=== PATIENT | male | born 1935 | race Caucasian/White ===

== ENCOUNTER 2019-05-15 07:26 | Emergency (ER) | payer MEDICARE, BC ==
[2019-05-15 08:33] LABS: CHLORIDE,CL 106 mmol/L (98-107); SODIUM,NA 142 mmol/L (136-145)
--- NOTE | 2019-05-15 09:03 | EDM.PDOC ---
ED HPI GENERAL MEDICAL PROBLEM - General Chief Complaint: Abdominal Pain Stated Complaint: abdominal pain Time Seen by Provider: 05/15/19 07:58 Source of Information: Reports: Patient, Other ([facility] staff) History Limitations: Reports: No Limitations - History of Present Illness INITIAL COMMENTS - FREE TEXT/NARRATIVE: Patient comes to ER with history of abdominal discomfort present for about two weeks. Rates it at a "5" at this time. Mostly LLQ. Worse after eating. Had emesis around time he tried to have breakfast this morning. No other nausea/ emesis reported. Had several stools yesterday but said they were not really loose in nature/no diarrhea. Patient reports feeling a bit constipated recently. No blood in stool. No fevers/chills. Has been eating and drinking well otherwise. Some discomfort down anterior left leg when he tries to lift left leg in air while laying down. No other new pain complaint. No history of similar pain in past per patient. Denies HEENT changes/URI complaints/headache No SOB/cough/respiratory changes. No chest pain/back pain/palpitations No numbness/tingling of limbs. No focal new weakness. Has cystostomy. No change in urine output. Abdominal Pain Score (Numeric/FACES): 5 - Related Data Allergies Allergy/AdvReac Type Severity Reaction Status Date / Time No Known Allergies Allergy Verified 05/15/19 07:27 Home Meds: Home Meds Albuterol [Ventolin HFA] 2 puff INH BID@0700,199905/15/19 [History] Albuterol [Ventolin HFA] 2 puff INH Q6HR PRN MDD Asthma 05/15/19 [History] Calcium Carbonate [Tums Extra Strength] 1 - 2 tab PO ASDIRECTED PRN MDD 10 tabs in 24 hours 05/15/19 [History] Carboxymethylcellulose Sodium [Artificial Tears] 2 drop EYEBOTH QID@07,12,16,05/15/19 [History] Cholecalciferol (Vitamin D3) [Vitamin D3] 25 mcg PO TID@07,16,20 05/15/19 [ History] Clotrimazole [Lotrimin AF 1% Crm] 1 applic TOP BID 05/15/19 [History] Furosemide [Lasix] 20 mg PO DAILY@0700 05/15/19 [History] Ketorolac Tromethamine 1 drop EYELF QID@07,12,16,20 05/15/19 [History] Lidocaine 2% [Xylocaine 2% Jelly] 1 ml TOP ASDIRECTED PRN 05/15/19 [History] Methyl Salicylate/Menthol [Thera-Gesic Analgesic] 1 applic TOP TID PRN 05/15/19 [History] Metoprolol Tartrate [Lopressor] 50 mg PO BID@0700,199905/15/19 [History] Mometasone Furoate [Asmanex] 1 puff INH BEDTIME 05/15/19 [History] Moxifloxacin HCl [Moxifloxacin] 1 drop EYELF QID@07,12,16,20 05/15/19 [History] Potassium Chloride [Klor-Con M20] 20 meq PO DAILY@0700 05/15/19 [History] Prednisolone Acetate/Pf [Prednisolone Acet 1% Eye Drop] 1 drop EYELF QID@07,12, 16,20 05/15/19 [History] Sulfamethoxazole/Trimethoprim [Bactrim Ds Tablet] 1 each PO Q12H #14 tablet [Rx] Tiotropium [Spiriva Handihaler] 18 mcg INH BEDTIME 05/15/19 [History] atorvaSTATin [Lipitor] 40 mg PO BEDTIME 05/15/19 [History] Past Medical History HEENT History: Reports: Cataract, Glaucoma, Hard of Hearing Cardiovascular History: Reports: Afib, Bypass, CAD, Cardiomyopathy, Heart Failure, High Cholesterol, Hypertension, PVD, Other (See Below) (Aortic insufficiency, mitral insufficiency) Respiratory History: Reports: Asthma, Sleep Apnea Gastrointestinal History: Reports: Other (See Below) (dysphagia) Genitourinary History: Reports: Urinary Incontinence (incontinent of stool), Other (See Below) (cystostomy) Neurological History: Reports: Other (See Below) (Subarachnoid bleed/LOC) Psychiatric History: Reports: Anxiety Social & Family History - Family History Family Medical History: Noncontributory - Living Situation & Occupation Living situation: Reports: Extended Care Facility ED ROS GENERAL - Review of Systems Review Of Systems: ROS reveals no pertinent complaints other than HPI. ED EXAM, GENERAL - Physical Exam Exam: See Below Exam Limited By: No Limitations General Appearance: Alert, WD/WN, No Apparent Distress Eye Exam: Bilateral Eye: EOMI, PERRL Ears: Normal External Exam Nose: No: Nasal Deformity, Nasal Swelling, Nasal Drainage Throat/Mouth: Normal Lips, Normal Voice, No Airway Compromise Head: Atraumatic, Normocephalic Neck: Supple, Full Range of Motion Respiratory/Chest: No Respiratory Distress, No Accessory Muscle Use, Chest Non- Tender, Other (faint crackles at bases) Cardiovascular: No Murmur, Irregularly Irregular (history of chronic afib) GI/Abdominal: Soft, No Distention, No Abnormal Bruit, Tender (tender LLQ/ periumbilically). No: Guarding, Rigid, Rebound (Male) Exam: Deferred Rectal (Males) Exam: Deferred Back Exam: No: CVA Tenderness (L), CVA Tenderness (R), Muscle Spasm, Paraspinal Tenderness, Vertebral Tenderness Extremities: Non-Tender, Normal Capillary Refill Neurological: Alert, No Motor/Sensory Deficits Psychiatric: Normal Affect, Normal Mood Skin Exam: Warm, Dry, Intact, Normal Color Course - Vital Signs Last Recorded V/S: Last Vital Signs Temp 35.9 C 05/15/19 08:00 Pulse 67 05/15/19 08:00 Resp 20 05/15/19 08:00 BP 138/100 H 05/15/19 08:00 Pulse Ox 98 05/15/19 08:00 - Orders/Labs/Meds Orders: Active Orders 24 hr Category Date Time Status Peripheral IV Care [RC] . DIRECTED Care 05/15/19 07:39 Active Abdomen 2V AP Flat Upright [CR] Stat Exams 05/15/19 08:06 Taken CULTURE URINE [RM] Routine Lab 05/15/19 08:53 Ordered Peripheral IV Insertion Adult [OM.PC] Routine Oth 05/15/19 07:39 Ordered Labs: Laboratory Tests 05/15/19 05/15/19 05/15/19 Range/Units 07:55 07:55 07:55 WBC 6.6 (4.0-10.2) K/uL RBC 4.12 L (4.33-5.41) M/uL Hgb 12.0 L (13.1-16.8) g/dL Hct 38.0 L (39.0-49.0) % MCV 92.2 (84.0-98.0) fL MCH 29.1 (28.2-33.3) pg MCHC 31.6 L (31.7-36.0) g/dL RDW 15.4 H (11.2-14.1) % Plt Count 153 (150-350) K/uL Neut % (Auto) 76.9 (45.0-80.0) % Lymph % (Auto) 12.4 (10.0-50.0) % [place] % (Auto) 7.0 (2.0-14.0) % Eos % (Auto) 3.2 (0.0-5.0) % Baso % (Auto) 0.5 (0.0-2.0) % Neut # (Auto) 5.09 (1.40-7.00) K/uL Lymph # (Auto) 0.82 (0.50-3.50) K/uL [place] # (Auto) 0.46 (0.00-1.00) K/uL Eos # (Auto) 0.21 (0.00-0.50) K/uL Baso # (Auto) 0.03 (0.00-0.20) K/uL Sodium 142 (136-145) mmol/L Potassium 4.3 (3.5-5.1) mmol/L Chloride 106 (98-107) mmol/L Carbon Dioxide 25.6 (21.0-32.0) mmol/L BUN 21 H (7-18) mg/dL Creatinine 0.63 (0.51-1.17) mg/dL Est Cr Clr Drug Dosing TNP Estimated GFR (MDRD) > 60 mL/min Glucose 151 H (74-106) mg/dL Lactic Acid 2.9 H (0.4-2.0) mmol/L Calcium 8.5 (8.5-10.1) mg/dL Magnesium 1.8 (1.8-2.4) mg/dL Total Bilirubin 0.6 (0.2-1.0) mg/dL AST 19 (15-37) U/L ALT 19 (12-78) U/L Alkaline Phosphatase 121 H (46-116) IU/L Total Protein 7.1 (6.4-8.2) g/dL Albumin 3.0 L (3.4-5.0) g/dL Specimen Type Urine Color Urine Appearance Urine pH (5.0-9.0) Ur Specific Or[place] (1.005-1.030) Urine Protein (NEGATIVE) mg/dL Urine Glucose (UA) (NEGATIVE) mg/dL Urine Ketones (NEGATIVE) mg/dL Urine Occult Blood (NEGATIVE) Urine Nitrite (NEGATIVE) Urine Bilirubin (NEGATIVE) Urine Urobilinogen (0.2-1.0) E.U./dL Ur Leukocyte Esterase (NEGATIVE) Urine RBC /HPF Urine WBC /HPF Ur Epithelial Cells /LPF Urine Bacteria (NONE TO FEW) /HPF 05/15/19 Range/Units 08:02 WBC (4.0-10.2) K/uL RBC (4.33-5.41) M/uL Hgb (13.1-16.8) g/dL Hct (39.0-49.0) % MCV (84.0-98.0) fL MCH (28.2-33.3) pg MCHC (31.7-36.0) g/dL RDW (11.2-14.1) % Plt Count (150-350) K/uL Neut % (Auto) (45.0-80.0) % Lymph % (Auto) (10.0-50.0) % [place] % (Auto) (2.0-14.0) % Eos % (Auto) (0.0-5.0) % Baso % (Auto) (0.0-2.0) % Neut # (Auto) (1.40-7.00) K/uL Lymph # (Auto) (0.50-3.50) K/uL [place] # (Auto) (0.00-1.00) K/uL Eos # (Auto) (0.00-0.50) K/uL Baso # (Auto) (0.00-0.20) K/uL Sodium (136-145) mmol/L Potassium (3.5-5.1) mmol/L Chloride (98-107) mmol/L Carbon Dioxide (21.0-32.0) mmol/L BUN (7-18) mg/dL Creatinine (0.51-1.17) mg/dL Est Cr Clr Drug Dosing Estimated GFR (MDRD) mL/min Glucose (74-106) mg/dL Lactic Acid (0.4-2.0) mmol/L Calcium (8.5-10.1) mg/dL Magnesium (1.8-2.4) mg/dL Total Bilirubin (0.2-1.0) mg/dL AST (15-37) U/L ALT (12-78) U/L Alkaline Phosphatase (46-116) IU/L Total Protein (6.4-8.2) g/dL Albumin (3.4-5.0) g/dL Specimen Type Urincath Urine Color Yellow Urine Appearance Cloudy Urine pH 6.0 (5.0-9.0) Ur Specific [place] 1.020 (1.005-1.030) Urine Protein Negative (NEGATIVE) mg/dL Urine Glucose (UA) Negative (NEGATIVE) mg/dL Urine Ketones Negative (NEGATIVE) mg/dL Urine Occult Blood Moderate H (NEGATIVE) Urine Nitrite Positive H (NEGATIVE) Urine Bilirubin Negative (NEGATIVE) Urine Urobilinogen 0.2 (0.2-1.0) E.U./dL Ur Leukocyte Esterase Small H (NEGATIVE) Urine RBC 5-10 H /HPF Urine WBC 30-40 H /HPF Ur Epithelial Cells Rare /LPF Urine Bacteria Many H (NONE TO FEW) /HPF Meds: Medications Discontinued Medications Generic Name Dose Route Start Last Admin Trade Name Freq PRN Reason Stop Dose Admin Ceftriaxone Sodium 1 gm/ 100 mls @ 200 mls/hr 05/15/19 08:54 05/15/19 09:09 Sodium Chloride IV 05/15/19 09:23 200 mls/hr ONETIME ONE Administration Lactulose 20 gm 05/15/19 09:01 05/15/19 09:09 Cephulac PO 05/15/19 09:02 20 gm ONETIME ONE Administration Magnesium Citrate 592 ml 05/15/19 08:59 05/15/19 09:09 Citrate Of Magnesia PO 05/15/19 09:00 592 ml ONETIME ONE Administration Ondansetron HCl 4 mg 05/15/19 09:36 05/15/19 09:49 Zofran IVPUSH 05/15/19 09:37 4 mg ONETIME ONE Administration Polyethylene Glycol 17 gm 05/15/19 09:00 05/15/19 09:09 Miralax PO 05/15/19 09:01 17 gm ONETIME ONE Administration Sodium Chloride 10 ml 05/15/19 07:39 05/15/19 09:50 Saline Flush FLUSH 10 ml ASDIRECTED PRN Administration Keep Vein Open - Re-Assessments/Exams Free Text/Narrative Re-Assessment/Exam: Patient afebrile. Normal WBC. Mild elevation of lactic acid. Large amount of stool noted on abdominal film. UA + for elevated WBCs UTI identified. Culture requested. Discussed obtaining CT of abdomen to make more certain that patient does not have any other obvious pathology such as diverticulitis. Patient refused CT at this time and prefers to try to treat for constipation. Will also be started on antibiotics for UTI. If pain persists despite the above interventions, patient will need to be re- evaluated. Single dose Rocephin given in ER. Patient in agreement with plan. Repeat UA/Lactic Acid/Potassium requested in 4 days. Departure - Departure Time of Disposition: 10:15 Disposition: DC/Tfer to [facility] 03 Condition: Good Clinical Impression: Constipation Qualifiers: Constipation type: unspecified constipation type Qualified Code(s): K59.00 - Constipation, unspecified UTI (urinary tract infection) Qualifiers: Urinary tract infection type: site unspecified Hematuria presence: without hematuria Qualified Code(s): N39.0 - Urinary tract infection, site not specified - Discharge Information *PRESCRIPTION DRUG MONITORING PROGRAM REVIEWED*: Not Applicable *COPY OF PRESCRIPTION DRUG MONITORING REPORT IN PATIENT JOE: Not Applicable Prescriptions: Sulfamethoxazole/Trimethoprim [Bactrim Ds Tablet] 1 each PO Q12H #14 tablet Instructions: Ondansetron injection, Ceftriaxone injection, Constipation, Adult , Urinary Tract Infection, Adult Referrals: Yash-Carol Story MD [Primary Care Provider] - Forms: ED Department Discharge Additional Instructions: Give bottle of Mag Citrate mixed with Miralax this morning to promote a bowel movement. Start patient on Bactrim DS twice daily for 7 day course. Give single bottle Mag Citrate tomorrow morning. Observe for results/changes. If pain continues despite the above interventions, CT of abdomen should be performed. If any fevers/sudden worsening is noted, CT should be performed/patient reassessed. If pain resolves, patient needs to have new UA performed in 4 days to make certain that infection is clearing. Recheck potassium level at same time as Bactrim can increase potassium levels in patients on potassium supplements. Also recheck Lactic Acid to see if it has returned to normal level. - My Orders Last 24 Hours: My Active Orders 05/15/19 07:39 Peripheral IV Care [RC] . DIRECTED Peripheral IV Insertion Adult [OM.PC] Routine 05/15/19 08:06 Abdomen 2V AP Flat Upright [CR] Stat 05/15/19 08:53 CULTURE URINE [RM] Routine - Assessment/Plan Last 24 Hours: My Active Orders 05/15/19 07:39 Peripheral IV Care [RC] . DIRECTED Peripheral IV Insertion Adult [OM.PC] Routine 05/15/19 08:06 Abdomen 2V AP Flat Upright [CR] Stat 05/15/19 08:53 CULTURE URINE [RM] Routine
[2019-05-15] MEDS: Polyethylene Glycol 3350 Powder 17 GM Packet PO ONE (09:09)
[2019-05-15] MEDS: Lactulose Soln 10 GM/15 ML 30 ML UD Cup PO ONE (09:09)
[2019-05-15] MEDS: Magnesium Citrate Solution 296 ML Bottle PO ONE (09:09)
[2019-05-15] MEDS: cefTRIAXone 1 GM in Sodium Chloride 0.9% 100 ML IV ONE (09:09)
[2019-05-15] MEDS: Ondansetron 4 MG/2 ML SDV IVPUSH ONE (09:49)
[2019-05-15] MEDS: Sodium Chloride 0.9% 10 ML Syringe FLUSH PRN (09:50)
== END 2019-05-15 10:25 ==
LOC: LL.ED 07:26
DX: N39.0 Urinary tract infection, site not specified (principal); K59.00 Constipation, unspecified; I25.10 Atherosclerotic heart disease of native coronary artery without angina pectoris; E78.00 Pure hypercholesterolemia, unspecified; I10 Essential (primary) hypertension; J45.909 Unspecified asthma, uncomplicated; H26.9 Unspecified cataract; H40.9 Unspecified glaucoma; Z79.52 Long term (current) use of systemic steroids; Z79.899 Other long term (current) drug therapy; Z79.51 Long term (current) use of inhaled steroids; Z95.1 Presence of aortocoronary bypass graft
CPT/HCPCS: 36415; 74019; 80053; 81001; 83605; 83735; 85025; 87086; 87088; 87186; 96365; 96374; 99283; 99284-25; A9270-GY; J0696; J2405; J7050

== ENCOUNTER 2019-07-10 09:13 | Emergency (ER) | payer MEDICARE, BC ==
--- NOTE | 2019-07-10 10:00 | EDM.PDOC ---
ED HPI GENERAL MEDICAL PROBLEM - General Chief Complaint: Abdominal Pain Stated Complaint: abdominal pain Time Seen by Provider: 07/10/19 09:50 Source of Information: Reports: Patient, [facility] Records, Old Records ([facility] chart/EMR) History Limitations: Reports: Altered Mental Status - History of Present Illness INITIAL COMMENTS - FREE TEXT/NARRATIVE: The patient was brought to this facility via transport vehicle from [facility] in [place] for evaluation of nonspecific diffuse 4/10 abdominal pain and bloating with moderate distention and loose bowel movements associated with some nausea and possible emesis since earlier this morning by patient history, although not reported from the nurses to this facility earlier this morning prior to patient's transfer. The patient normally has problems with constipation with no medications taken to this point. He denies any gross hematuria or UTI symptoms with current suprapubic catheter and clear urine by nurse's history this morning. The patient denies any chest pain/pressure, heart flutter, dizziness, orthostasis, orthopnea, diaphoresis, paresthesias, recent decreased exercise tolerance, or any other anginal-type symptoms. The patient also denies any recent fever, cough, wheezing, dyspnea, etc.. He did not take his morning medications. Onset: Gradual, Unknown/Unsure Duration: Constant, Getting Worse Location: Reports: Abdomen. Denies: Head, Face, Neck, Chest, Back, Upper Extremity, Left, Upper Extremity, Right, Radiates to Quality: Reports: Same as Previous Episode, Sharp Severity: Moderate Improves with: Reports: None Worsens with: Reports: None Context: Reports: Other (As above). Denies: Sick Contact, Trauma Associated Symptoms: Reports: Nausea/Vomiting. Denies: Chest Pain, Cough, Diaphoresis, Fever/Chills, Loss of Appetite, Malaise, Shortness of Breath, Syncope, Weakness Treatments FIREMAN: Reports: Other (see below) (None) Abdomen Pain Score (Numeric/FACES): 4 - Related Data Allergies Allergy/AdvReac Type Severity Reaction Status Date / Time No Known Allergies Allergy Verified 05/15/19 07:27 Home Meds: Home Meds Albuterol [Ventolin HFA] 2 puff INH BID@0700,2000 05/15/19 [History] Albuterol [Ventolin HFA] 2 puff INH Q6HR PRN MDD Asthma 05/15/19 [History] Calcium Carbonate [Tums Extra Strength] 1 - 2 tab PO ASDIRECTED PRN MDD 10 tabs in 24 hours 05/15/19 [History] Carboxymethylcellulose Sodium [Artificial Tears] 2 drop EYEBOTH QID@07,12,,05/15/19 [History] Cholecalciferol (Vitamin D3) [Vitamin D3] 25 mcg PO TID@,,05/15/19 [ History] Clotrimazole [Lotrimin AF 1% Crm] 1 applic TOP BID 05/15/19 [History] Furosemide [Lasix] 20 mg PO DAILY@0700 05/15/19 [History] Ketorolac Tromethamine 1 drop EYELF QID@07,,,05/15/19 [History] Lidocaine 2% [Xylocaine 2% Jelly] 1 ml TOP ASDIRECTED PRN 05/15/19 [History] Methyl Salicylate/Menthol [Thera-Gesic Analgesic] 1 applic TOP TID PRN 05/15/19 [History] Metoprolol Tartrate [Lopressor] 50 mg PO BID@0700,199905/15/19 [History] Mometasone Furoate [Asmanex] 1 puff INH BEDTIME 05/15/19 [History] Moxifloxacin HCl [Moxifloxacin] 1 drop EYELF QID@07,12,,20 05/15/19 [History] Potassium Chloride [Klor-Con M20] 20 meq PO DAILY@0700 05/15/19 [History] Prednisolone Acetate/Pf [Prednisolone Acet 1% Eye Drop] 1 drop EYELF QID@07,12, ,05/15/19 [History] Sulfamethoxazole/Trimethoprim [Bactrim Ds Tablet] 1 each PO Q12H #14 tablet [Rx] Tiotropium [Spiriva Handihaler] 18 mcg INH BEDTIME 05/15/19 [History] atorvaSTATin [Lipitor] 40 mg PO BEDTIME 05/15/19 [History] Past Medical History HEENT History: Reports: Cataract, Glaucoma, Hard of Hearing, Impaired Vision Other HEENT History: The patient wears glasses with an occluded right limb secondary to diplopia. Dry eye syndrome. 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 Chronic tinnitus. History of epistaxis with cauterization. Cardiovascular History: Reports: Afib, Bypass, CAD, Cardiomyopathy, Heart Failure, Heart Murmur, High Cholesterol, Hypertension, PVD, Syncope, Other (See Below) Other Cardiovascular History: Aortic valve and mitral valve insufficiency. 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 Varicose veins. Respiratory History: Reports: Asthma, Bronchitis, Recurrent, COPD, Intubation, Previous, Sleep Apnea. Denies: Intubation, Difficult Gastrointestinal History: Reports: Bowel Obstruction, Chronic Constipation, Chronic Diarrhea, Fecal Incontinence, Other (See Below) Other Gastrointestinal History: Dysphagia. Genitourinary History: Reports: BPH, Retention, Urinary, Urinary Incontinence, UTI, Recurrent Other Genitourinary History: Neurogenic bladder with chronic suprapubic catheter therapy. Musculoskeletal History: Reports: Arthritis, Fracture, Osteoarthritis Other Musculoskeletal History: Left shoulder fracture. Bilateral foot pain. Neurological History: Reports: CVA, Other (See Below) Other Neuro History: subarachnoid hemorrhage with LOC Psychiatric History: Reports: Anxiety, Depression Endocrine/Metabolic History: Reports: Diabetes, Type II, Vitamin D Deficiency Other Endocrine/Metabolic History: Prediabetes. Hypokalemia. Hematologic History: Reports: Anemia Dermatologic History: Reports: Other (See Below) Other Dermatologic History: Seborrheic keratosis. Xerosis cutis. Venous stasis dermatitis. Dry skin. - Past Surgical History HEENT Surgical History: Reports: Cataract Surgery, Oral Surgery, Other (See Below) Other HEENT Surgeries/Procedures: Right-sided cataract surgery. Multiple teeth extractions. Cardiovascular Surgical History: Reports: Coronary Artery Bypass GI Surgical History: Reports: Appendectomy, Cholecystectomy, Other (See Below) Other GI Surgeries/Procedures: Appendectomy at age 6. Cholecystectomy in about 2017. Male Surgical History: Reports: Suprapubic Catheter Placement Musculoskeletal Surgical History: Reports: Shoulder Surgery, Other (See Below) Other Musculoskeletal Surgeries/Procedures:: Unknown type of left shoulder surgeryunsuccessful. Social & Family History - Family History Family Medical History: Noncontributory - Living Situation & Occupation Living situation: Reports: Extended Care Facility ED ROS GENERAL - Review of Systems Review Of Systems: Comprehensive ROS is negative, except as noted in HPI. ED EXAM, GI/ABD - Physical Exam Exam: See Below Exam Limited By: No Limitations General Appearance: Alert, WD/WN, No Apparent Distress Eyes: Right: Abnormal EOM, Bilateral: Normal Appearance (stable baseline by history with anisocoria with left-sided severe myosis and right-sided enlarged pupil at 6 mm and likely status post cataract extraction. Patient wearing glasses with right-sided occluded lens), EOMI (PERRLA) Ears: Normal External Exam, Normal Canal, Normal TMs, Hearing Loss (mild to moderate bilateral presbycusis with the patient not having hearing aids today) Nose: Normal Inspection, Normal Mucosa, No Blood Throat/Mouth: Normal Inspection, Normal Lips, Normal Teeth (multiple missing teeth), Normal Gums, Normal Oropharynx, Normal Voice, No Airway Compromise. No : Dysphagia, Perioral Cyanosis Head: Atraumatic, Normocephalic. No: Facial Swelling, Facial Tenderness, Sinus Tenderness Neck: Supple, Non-Tender, Full Range of Motion, Carotid Bruit (mild bilateral carotid bruits). No: Lymphadenopathy (L), Lymphadenopathy (R), Thyromegaly Respiratory/Chest: No Respiratory Distress, Lungs Clear, Normal Breath Sounds, No Accessory Muscle Use, Chest Non-Tender. No: Pleural Rub, Retractions Cardiovascular: Normal Peripheral Pulses, No Edema, No Gallop, No JVD, No Murmur , No Rub, Irregularly Irregular. No: Diastolic Murmur (insufficiency murmurs not appreciated), Systolic Murmur GI/Abdominal Exam: No Abnormal Bruit, No Mass, Pelvis Stable, Distended ( moderate), Tender (mild diffuse biphasic P waves), Abnormal Bowel Sounds ( moderate diffuse bowel sounds high-pitched in nature). No: Guarding, Rigid, Rebound (Male) Exam: Deferred, Other (suprapubic catheter noted) Rectal (Males) Exam: Normal Rectal Tone, BPH (moderate), Heme - Stool, Hemorrhoids. No: Bloody Stool, Fecal Impaction, Mass, Prostate Nodule, Tenderness (no Daniel space tenderness) Extremities: Normal Inspection, Non-Tender, No Pedal Edema, Normal Capillary Refill, Limited Range of Motion (chronic and shoulders bilaterally). No: Adelia' s Sign Neurological: Alert, Oriented, CN II-XII Intact, Normal Cognition, Normal Reflexes (negative Babinski's), No Motor/Sensory Deficits Psychiatric: Normal Affect, Normal Mood. No: Anxious, Depressed Mood Skin Exam: Warm, Dry, Intact, Normal Color, Other (severely dry skin. Moderate venous stasis dermatitis of the lower extremities. 1 cm benign cyst in the mid forehead region.). No: Diaphoretic, Wound/Incision Lymphatic: No Adenopathy Course - Vital Signs Last Recorded V/S: Last Vital Signs Temp 36.0 C 07/10/19 09:14 Pulse 129 H 07/10/19 11:04 Resp 20 07/10/19 09:59 BP 115/56 L 07/10/19 11:04 Pulse Ox 97 07/10/19 09:59 Vital Signs - 24 hr 07/10/19 07/10/19 07/10/19 09:14 09:59 11:04 Temperature [ 36.0 C Temporal] Pulse, 129 H Peripheral Pulse, 107 H Peripheral [ Left Pulse Oximetry] Respiratory 20 20 Rate Blood Pressure 115/56 L Blood Pressure 108/85 [Left Upper Arm ] O2 Sat by Pulse 97 Oximetry - Orders/Labs/Meds Orders: Active Orders 24 hr Category Date Time Status Cardiac Monitoring [RC] . DIRECTED Care 07/10/19 10:09 Active Peripheral IV Care [RC] . DIRECTED Care 07/10/19 10:00 Active Nothing Per Oral Diet [DIET] Diet 07/10/19 Breakfast Active Abdomen 1V Flat [CR] Stat Exams 07/10/19 11:04 Taken Abdomen Series w Chest 1V [CR] Stat Exams 07/10/19 10:00 Taken H PYLORI STOOL ANTIGEN [MREF] Urgent Lab 07/10/19 10:00 Ordered INR,PT,PROTHROMBIN TIME [COAG] Stat Lab 07/10/19 10:00 Ordered PTT,PARTIAL THROMBOPLSTIN TIME [COAG] Stat Lab 07/10/19 10:00 Ordered Sodium Chloride 0.9% [Saline Flush] Med 07/10/19 10:00 Active 10 ml FLUSH ASDIRECTED PRN metroNIDAZOLE/Normal Saline [Flagyl 500 MG in NS 100 ML Med 07/10/19 11:03 Active ] 500 mg Premix Bag 1 bag IV ONETIME NG [Nasogastric Orogastric Tube Insertion] [OM.PC] Oth 07/10/19 11:01 Ordered Routine Obtain Past Medical Record [OM.PC] Urgent Oth 07/10/19 10:00 Active Peripheral IV Insertion Adult [OM.PC] Stat Oth 07/10/19 10:00 Ordered Resuscitation Status Stat Resus Stat 07/10/19 10:00 Ordered Medication Orders Metronidazole 500 mg/ Premix 100 mls @ 100 mls/hr IV ONETIME ONE Stop: 07/10/19 12:02 Last Admin: 07/10/19 11:48 Dose: 100 mls/hr Sodium Chloride (Saline Flush) 10 ml FLUSH ASDIRECTED PRN PRN Reason: Keep Vein Open Last Admin: 07/10/19 10:21 Dose: 10 ml Labs: Laboratory Tests 07/10/19 07/10/19 07/10/19 Range/Units 10:30 11:10 11:10 WBC 7.6 (4.0-10.2) K/uL RBC 4.65 (4.33-5.41) M/uL Hgb 13.5 D (13.1-16.8) g/dL Hct 42.1 (39.0-49.0) % MCV 90.5 (84.0-98.0) fL MCH 29.0 (28.2-33.3) pg MCHC 32.1 (31.7-36.0) g/dL RDW 15.4 H (11.2-14.1) % Plt Count 60 L D (150-350) K/uL Neut % (Auto) 76.8 (45.0-80.0) % Lymph % (Auto) 10.1 (10.0-50.0) % [place] % (Auto) 12.3 (2.0-14.0) % Eos % (Auto) 0.5 (0.0-5.0) % Baso % (Auto) 0.3 (0.0-2.0) % Neut # (Auto) 5.83 (1.40-7.00) K/uL Lymph # (Auto) 0.77 (0.50-3.50) K/uL [place] # (Auto) 0.93 (0.00-1.00) K/uL Eos # (Auto) 0.04 (0.00-0.50) K/uL Baso # (Auto) 0.02 (0.00-0.20) K/uL Sodium 144 (136-145) mmol/L Potassium 3.4 L (3.5-5.1) mmol/L Chloride 107 (98-107) mmol/L Carbon Dioxide 20.5 L (21.0-32.0) mmol/L BUN 33 H (7-18) mg/dL Creatinine 0.85 (0.51-1.17) mg/dL Est Cr Clr Drug Dosing 60.48 mL/min Estimated GFR (MDRD) > 60 mL/min Glucose 156 H (74-106) mg/dL Lactic Acid (0.4-2.0) mmol/L Uric Acid 5.7 (2.6-7.2) mg/dL Calcium 9.0 (8.5-10.1) mg/dL Magnesium 1.8 (1.8-2.4) mg/dL Total Bilirubin 1.1 H (0.2-1.0) mg/dL AST 18 (15-37) U/L ALT 13 (12-78) U/L Alkaline Phosphatase 126 H (46-116) IU/L Total Protein 7.3 (6.4-8.2) g/dL Albumin 3.4 (3.4-5.0) g/dL Amylase 33 (25-115) U/L Lipase 53 L (73-393) U/L // Range/Units 11:10 WBC (4.0-10.2) K/uL RBC (4.33-5.41) M/uL Hgb (13.1-16.8) g/dL Hct (39.0-49.0) % MCV (84.0-98.0) fL MCH (28.2-33.3) pg MCHC (31.7-36.0) g/dL RDW (11.2-14.1) % Plt Count (150-350) K/uL Neut % (Auto) (45.0-80.0) % Lymph % (Auto) (10.0-50.0) % [place] % (Auto) (2.0-14.0) % Eos % (Auto) (0.0-5.0) % Baso % (Auto) (0.0-2.0) % Neut # (Auto) (1.40-7.00) K/uL Lymph # (Auto) (0.50-3.50) K/uL [place] # (Auto) (0.00-1.00) K/uL Eos # (Auto) (0.00-0.50) K/uL Baso # (Auto) (0.00-0.20) K/uL Sodium (136-145) mmol/L Potassium (3.5-5.1) mmol/L Chloride (98-107) mmol/L Carbon Dioxide (21.0-32.0) mmol/L BUN (7-18) mg/dL Creatinine (0.51-1.17) mg/dL Est Cr Clr Drug Dosing mL/min Estimated GFR (MDRD) mL/min Glucose (74-106) mg/dL Lactic Acid 2.3 H (0.4-2.0) mmol/L Uric Acid (2.6-7.2) mg/dL Calcium (8.5-10.1) mg/dL Magnesium (1.8-2.4) mg/dL Total Bilirubin (0.2-1.0) mg/dL AST (15-37) U/L ALT (12-78) U/L Alkaline Phosphatase (46-116) IU/L Total Protein (6.4-8.2) g/dL Albumin (3.4-5.0) g/dL Amylase (25-115) U/L Lipase (73-393) U/L Meds: Medications Generic Name Dose Route Start Last Admin Trade Name Freq PRN Reason Stop Dose Admin Metronidazole 500 mg/ Premix 100 mls @ 100 mls/hr 07/10/19 11:03 07/10/19 11: 48 IV 07/10/19 12:02 100 mls/hr ONETIME ONE Administration Sodium Chloride 10 ml 07/10/19 10:00 07/10/19 10:21 Saline Flush FLUSH 10 ml ASDIRECTED PRN Administration Keep Vein Open Discontinued Medications Generic Name Dose Route Start Last Admin Trade Name Freq PRN Reason Stop Dose Admin Famotidine 40 mg 07/10/19 10:00 07/10/19 10:20 Pepcid IVPUSH 07/10/19 10:01 40 mg ONETIME ONE Administration Ceftriaxone Sodium 1 gm/ 100 mls @ 200 mls/hr 07/10/19 10:53 07/10/19 11:04 Sodium Chloride IV 07/10/19 11:22 200 mls/hr ONETIME ONE Administration Metoprolol Tartrate 2.5 mg 07/10/19 10:56 07/10/19 11:04 Lopressor IVPUSH 07/10/19 10:57 2.5 mg ONETIME ONE Administration Pantoprazole Sodium 40 mg 07/10/19 10:00 07/10/19 10:21 Protonix Iv IVPUSH 07/10/19 10:01 40 mg ONETIME ONE Administration - Radiology Interpretation Free Text/Narrative:: quality assurance monitor body shows atrial fibrillation with heart rate in the 100s to 140s with frequent PVCs and occasional couplets and triplets. Note significant improvement with low-dose IV Lopressor therapy with atrial fibrillation occasional PVCs and heart rate in the 100s to 110s prior to transfer Acute abdominal x-rays shows evidence of severe diffuse bowel gaseous pattern and fluid levels indicating probable ileus and obstruction. No free air. Moderate COPD with moderate right perihilar and right middle lobe pulmonary infiltrates and atelectasis. Possible mild centralized CHF with mild bilateral pleural effusions. No pneumothorax. Abdominal x-ray, one view, shows adequate NG tube placement with obstructive findings as above. Departure - Departure Time of Disposition: 12:00 Disposition: DC/Tfer to Acute Hospital 02 Condition: Fair Clinical Impression: PVCs (premature ventricular contractions), Elevated lactic acid level, Hypokalemia Bowel obstruction Qualifiers: Intestinal obstruction type: unspecified ileus Qualified Code(s): K56.7 - Ileus , unspecified Atrial fibrillation Qualifiers: Atrial fibrillation type: longstanding persistent Qualified Code(s): I48.11 - Longstanding persistent atrial fibrillation Coronary artery disease Qualifiers: Coronary Disease-Associated Artery/Lesion type: bypass graft [place] vs. transplanted heart: [place] heart Associated angina: without angina Qualified Code(s): I25.810 - Atherosclerosis of coronary artery bypass graft(s) without angina pectoris Hypertension Qualifiers: Hypertension type: essential hypertension Qualified Code(s): I10 - Essential ( primary) hypertension Hyperlipidemia Qualifiers: Hyperlipidemia type: unspecified Qualified Code(s): E78.5 - Hyperlipidemia, unspecified COPD (chronic obstructive pulmonary disease) Qualifiers: COPD type: COPD with acute lower respiratory infection Qualified Code(s): J44.0 - Chronic obstructive pulmonary disease with (acute) lower respiratory infection Osteoarthritis Qualifiers: Osteoarthritis location: multiple joints Osteoarthritis type: primary Qualified Code(s): M15.0 - Primary generalized (osteo)arthritis - Discharge Information *PRESCRIPTION DRUG MONITORING PROGRAM REVIEWED*: Not Applicable *COPY OF PRESCRIPTION DRUG MONITORING REPORT IN PATIENT JOE: Not Applicable Forms: ED Department Discharge, Interfacility Transfer EMTALA Additional Instructions: Ambulance transfer with bunch maker accompaniment Sepsis Event Note - Evaluation Sepsis Screening Result: No Definite Risk - Focused Exam Vital Signs: Vital Signs Temp Pulse Pulse Resp BP BP Pulse Ox 07/10/19 11:04 129 H 115/56 L 07/10/19 09:59 107 H 20 108/85 97 07/10/19 09:14 36.0 C 20 Date Exam was Performed: 07/10/19 Time Exam was Performed: 11:53 - Problem List & Annotations (1) Bowel obstruction SNOMED Code(s): 30650020 Code(s): K56.609 - UNSP INTESTNL OBST, UNSP TO PARTIAL VERSUS COMPLETE OBST Status: Acute Priority: High Onset Date: 07/10/19 Annotation/ Comment:: Severe bowel obstruction by today's x-rays. Note that secondary to equipment problems chemistry panels could not be conducted in a timely manner with results received immediately prior to patient's transfer. Therefore CT scan of the abdomen and pelvis was not conducted prior to patient's transfer. High-dose IV Pepcid and IV Protonix were given upon patient's arrival to the emergency room. IV Rocephin was completed prior to transfer with IV Flagyl therapy initiated shortly prior to arrival with continuation of this therapy in route. NG tube therapy was placed with adequate placement by follow-up x-rays. Telephone consultation at 10:[address] Lozano, hospitalist at the [facility], who does accept the patient for direct admission, with no further treatment recommendations given. I did leave a telephone message with the patient's POA, Chinedu Galeano, telephone #[phone], informing him of patient transfer. Qualifiers: Intestinal obstruction type: unspecified ileus Qualified Code(s): K56.7 - Ileus, unspecified (2) Elevated lactic acid level SNOMED Code(s): 1292673 Code(s): R79.89 - OTHER SPECIFIED ABNORMAL FINDINGS OF BLOOD CHEMISTRY Status: Acute Priority: High Onset Date: 07/10/19 Annotation/Comment:: Recommend repeat lactic acid level at time of arrival with the patient to the [facility]. Initiate sepsis protocol depending on these results and clinical course. Note no fever or leukocytosis in the emergency room. (3) Atrial fibrillation SNOMED Code(s): 46208695 Code(s): I48.91 - UNSPECIFIED ATRIAL FIBRILLATION Status: Acute Priority : High Annotation/Comment:: Note that the patient did not receive his medications this morning. Overall improvement with low-dose IV Lopressor therapy in the emergency room as above. He is not currently on Coumadin or other anticoagulation likely secondary to his previous subarachnoid hemorrhage. Continue to observe closely by accepting providers. Qualifiers: Atrial fibrillation type: longstanding persistent Qualified Code(s): I48.11 - Longstanding persistent atrial fibrillation (4) COPD (chronic obstructive pulmonary disease) SNOMED Code(s): 72181201 Code(s): J44.9 - CHRONIC OBSTRUCTIVE PULMONARY DISEASE, UNSPECIFIED Status : Acute Annotation/Comment:: Stable by history although evidence of right middle lobe and right perihilar pneumonia. Patient is afebrile with no leukocytosis. He is an extremely difficult blood draw with blood cultures not able to be obtained. IV Rocephin initiated in the emergency room as above. Qualifiers: COPD type: COPD with acute lower respiratory infection Qualified Code(s): J44.0 - Chronic obstructive pulmonary disease with (acute) lower respiratory infection (5) Coronary artery disease SNOMED Code(s): 91393276 Code(s): I25.10 - ATHSCL HEART DISEASE OF [place] CORONARY ARTERY W/O ANG PCTRS Status: Chronic Priority: Medium Annotation/Comment:: No Chest pain or anginal type symptoms. Qualifiers: Coronary Disease-Associated Artery/Lesion type: bypass graft [place] vs. transplanted heart: [place] heart Associated angina: without angina Qualified Code(s): I25.810 - Atherosclerosis of coronary artery bypass graft(s) without angina pectoris (6) Hyperlipidemia SNOMED Code(s): 79341239 Code(s): E78.5 - HYPERLIPIDEMIA, UNSPECIFIED Status: Chronic Priority: Medium Annotation/Comment:: Continue current medical therapy. Qualifiers: Hyperlipidemia type: unspecified Qualified Code(s): E78.5 - Hyperlipidemia , unspecified (7) Hypertension SNOMED Code(s): 59372641 Code(s): I10 - ESSENTIAL (PRIMARY) HYPERTENSION Status: Chronic Priority : Medium Annotation/Comment:: Blood Pressures under good control in the emergency room despite tachycardia. Qualifiers: Hypertension type: essential hypertension Qualified Code(s): I10 - Essential (primary) hypertension (8) Hypokalemia SNOMED Code(s): 71909143 Code(s): E87.6 - HYPOKALEMIA Status: Acute Priority: Medium Onset Date : 07/10/19 Annotation/Comment:: The paramedics will initiate lactated Ringer' s IV fluids, if IV Flagyl is completed prior to arrival to the [facility] in [place]. Otherwise IV potassium supplementation is recommended secondary to current NG tube therapy. (9) Osteoarthritis SNOMED Code(s): 331907697 Code(s): M19.90 - UNSPECIFIED OSTEOARTHRITIS, UNSPECIFIED SITE Status: Chronic Priority: Medium Annotation/Comment:: Stable by history Qualifiers: Osteoarthritis location: multiple joints Osteoarthritis type: primary Qualified Code(s): M15.0 - Primary generalized (osteo)arthritis (10) PVCs (premature ventricular contractions) SNOMED Code(s): 54480632 Code(s): I49.3 - VENTRICULAR PREMATURE DEPOLARIZATION Status: Acute Priority: High Onset Date: 07/10/19 Annotation/Comment:: Newly diagnosed with occasional couplets and triplets. Nonsymptomatic. Observe for now. - Problem List Review Problem List Initiated/Reviewed/Updated: Yes - My Orders Last 24 Hours: My Active Orders 07/10/19 10:00 Peripheral IV Care [RC] . DIRECTED Abdomen Series w Chest 1V [CR] Stat H PYLORI STOOL ANTIGEN [MREF] Urgent INR,PT,PROTHROMBIN TIME [COAG] Stat PTT,PARTIAL THROMBOPLSTIN TIME [COAG] Stat Sodium Chloride 0.9% [Saline Flush] 10 ml FLUSH ASDIRECTED PRN Obtain Past Medical Record [OM.PC] Urgent Peripheral IV Insertion Adult [OM.PC] Stat Resuscitation Status Stat 07/10/19 10:09 Cardiac Monitoring [RC] . DIRECTED 07/10/19 11:01 NG [Nasogastric Orogastric Tube Insertion] [OM.PC] Routine 07/10/19 11:03 metroNIDAZOLE/Normal Saline [Flagyl 500 MG in NS 100 ML] 500 mg Premix Bag 1 bag IV ONETIME 07/10/19 11:04 Abdomen 1V Flat [CR] Stat 07/10/19 Breakfast Nothing Per Oral Diet [DIET] - Assessment/Plan Last 24 Hours: My Active Orders 07/10/19 10:00 Peripheral IV Care [RC] . DIRECTED Abdomen Series w Chest 1V [CR] Stat H PYLORI STOOL ANTIGEN [MREF] Urgent INR,PT,PROTHROMBIN TIME [COAG] Stat PTT,PARTIAL THROMBOPLSTIN TIME [COAG] Stat Sodium Chloride 0.9% [Saline Flush] 10 ml FLUSH ASDIRECTED PRN Obtain Past Medical Record [OM.PC] Urgent Peripheral IV Insertion Adult [OM.PC] Stat Resuscitation Status Stat 07/10/19 10:09 Cardiac Monitoring [RC] . DIRECTED 07/10/19 11:01 NG [Nasogastric Orogastric Tube Insertion] [OM.PC] Routine 07/10/19 11:03 metroNIDAZOLE/Normal Saline [Flagyl 500 MG in NS 100 ML] 500 mg Premix Bag 1 bag IV ONETIME 07/10/19 11:04 Abdomen 1V Flat [CR] Stat 07/10/19 Breakfast Nothing Per Oral Diet [DIET] Assessment:: As above. Plan: As above. Extensive precautions were given to the patient, who is in agreement with the treatment plan. Ambulance transfer with bunch maker accompaniment.
[2019-07-10] MEDS: Famotidine 20 MG/2 ML SDV IVPUSH ONE (10:20)
[2019-07-10] MEDS: Sodium Chloride 0.9% 10 ML Syringe FLUSH PRN (10:21)
[2019-07-10] MEDS: Pantoprazole 40 MG Vial IVPUSH ONE (10:21)
[2019-07-10] MEDS: Metoprolol Tartrate 5 MG/5 ML SDV IVPUSH ONE (11:04)
[2019-07-10] MEDS: cefTRIAXone 1 GM in Sodium Chloride 0.9% 100 ML IV ONE (11:04)
[2019-07-10 11:37] LABS: CHLORIDE,CL 107 mmol/L (98-107); SODIUM,NA 144 mmol/L (136-145)
[2019-07-10] MEDS: metroNIDAZOLE/Normal Saline 500 MG in Premix Bag 1 BAG IV ONE (11:48)
== END 2019-07-10 12:01 ==
LOC: LL.ED 09:13
DX: K56.7 Ileus, unspecified (principal); E87.6 Hypokalemia; I49.3 Ventricular premature depolarization; I48.11 Longstanding persistent atrial fibrillation; I25.810 Atherosclerosis of coronary artery bypass graft(s) without angina pectoris; E78.5 Hyperlipidemia, unspecified; J44.0 Chronic obstructive pulmonary disease with (acute) lower respiratory infection; M15.0 Primary generalized (osteo)arthritis; I11.0 Hypertensive heart disease with heart failure; I50.40 Unspecified combined systolic (congestive) and diastolic (congestive) heart failure; R79.89 Other specified abnormal findings of blood chemistry; E11.36 Type 2 diabetes mellitus with diabetic cataract; H26.9 Unspecified cataract; H91.93 Unspecified hearing loss, bilateral; Z79.01 Long term (current) use of anticoagulants; Z95.1 Presence of aortocoronary bypass graft; Z86.73 Personal history of transient ischemic attack (TIA), and cerebral infarction without residual deficits; Z90.49 Acquired absence of other specified parts of digestive tract; Z90.89 Acquired absence of other organs; Z79.899 Other long term (current) drug therapy; Z79.51 Long term (current) use of inhaled steroids
CPT/HCPCS: 36415; 43752; 74018; 74022; 80053; 82150; 82272; 83605; 83690; 83735; 84550; 85025; 96365; 96375; 99284; 99285; C9113; J0696; J3490; J7050

== ENCOUNTER 2019-07-19 12:52 | Emergency (ER) | payer OTHER, MEDICARE ==
[2019-07-19] MEDS ORDERED: Lactated Ringers 1,000 ML IV ONE (13:08)
--- NOTE | 2019-07-19 13:08 | EDM.PDOC ---
ED HPI GENERAL MEDICAL PROBLEM - General Chief Complaint: Abdominal Pain Stated Complaint: loose stools Time Seen by Provider: 07/19/19 13:00 Source of Information: Reports: Patient, Longterm Records, Old Records ([facility] chart/EMR.) History Limitations: Reports: No Limitations - History of Present Illness INITIAL COMMENTS - FREE TEXT/NARRATIVE: The patient was brought to the emergency room via transport vehicle from [facility] for evaluation of progressive watery diarrhea associated with one large episode of projectile vomiting 1-2 days ago and progressive anorexia. The patient has had at least 4 watery bowel movements with stool incontinence since this morning, although he denies any significant abdominal pain or nausea at this time. He was evaluated by me in this emergency room on 07/10/2019 for severe ileus/obstruction with subsequent transfer and hospitalization at the from 07/10 through . The above symptoms have been progressing since 07/15 with no known exposure to infection, food poisoning, etc. etc. No recent history of melena, gross hematochezia, or any food intolerance, including fatty foods, etc.. He has been n.p.o. since about 7 AM this morning. The patient denies any chest pain/pressure, heart flutter, dizziness, orthostasis, orthopnea, diaphoresis, paresthesias, recent decreased exercise tolerance, or any other anginal-type symptoms. The patient also denies any recent fever, cough, wheezing, dyspnea, etc.. The patient denies any significant pain other than and chronic left shoulder pain. Onset: Gradual Onset Date: 07/15/19 Duration: Getting Worse Location: Reports: Other (As above) Quality: Reports: Same as Previous Episode Severity: Moderate Improves with: Reports: None Worsens with: Reports: None Context: Reports: Other (As above). Denies: Sick Contact, Trauma Associated Symptoms: Reports: Loss of Appetite, Nausea/Vomiting. Denies: Confusion, Chest Pain, Cough, Diaphoresis, Fever/Chills, Headaches, Malaise, Shortness of Breath, Syncope, Weakness Treatments TREE FELLER: Reports: Other (see below) (None) - Related Data Allergies Allergy/AdvReac Type Severity Reaction Status Date / Time No Known Allergies Allergy Verified 07/19/19 14:55 Home Meds: Home Meds Albuterol [Ventolin HFA] 2 puff INH BID@0700,199905/15/19 [History] Albuterol [Ventolin HFA] 2 puff INH Q6HR PRN MDD Asthma 05/15/19 [History] Calcium Carbonate [Tums Extra Strength] 1 - 2 tab PO ASDIRECTED PRN MDD 10 tabs in 24 hours 05/15/19 [History] Carboxymethylcellulose Sodium [Artificial Tears] 2 drop EYEBOTH QID@,12,,05/15/19 [History] Cholecalciferol (Vitamin D3) [Vitamin D3] 25 mcg PO TID@,,05/15/19 [ History] Furosemide [Lasix] 20 mg PO DAILY@0700 05/15/19 [History] Lidocaine 2% [Xylocaine 2% Jelly] 1 ml TOP ASDIRECTED PRN 05/15/19 [History] Methyl Salicylate/Menthol [Thera-Gesic Analgesic] 1 applic TOP TID PRN 05/15/19 [History] Metoprolol Tartrate [Lopressor] 50 mg PO BID@0700,199905/15/19 [History] Mometasone Furoate [Asmanex] 1 puff INH BEDTIME 05/15/19 [History] Potassium Chloride [Klor-Con M20] 20 meq PO DAILY@0700 05/15/19 [History] Tiotropium [Spiriva Handihaler] 18 mcg INH BEDTIME 05/15/19 [History] atorvaSTATin [Lipitor] 40 mg PO BEDTIME 05/15/19 [History] Past Medical History HEENT History: Reports: Cataract, Glaucoma, Hard of Hearing, Impaired Vision, Other (See Below) Other HEENT History: The patient wears glasses with an occluded right glasses lens secondary to diplopia with known anisocoria. Dry eye syndrome. 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 Chronic tinnitus. History of epistaxis with cauterization. Cardiovascular History: Reports: Afib, Arrhythmia, Bypass, CAD, Cardiomyopathy, Heart Failure, Heart Murmur, High Cholesterol, Hypertension, PVD, Syncope, Other (See Below). Denies: PTCA, Stents Other Cardiovascular History: Aortic valve and mitral valve insufficiency. 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 Varicose veins. PVCs Respiratory History: Reports: Asthma, Bronchitis, Recurrent, COPD, Intubation, Previous, Sleep Apnea. Denies: Intubation, Difficult Gastrointestinal History: Reports: Bowel Obstruction, Chronic Constipation, Chronic Diarrhea, Fecal Incontinence, Hemorrhoids, Other (See Below) Other Gastrointestinal History: Dysphagia. Left inguinal hernia. Recurrent previous ileus and bowel obstruction last on 07/10/2019. Genitourinary History: Reports: BPH, Retention, Urinary, Urinary Incontinence, UTI, Recurrent Other Genitourinary History: Neurogenic bladder with chronic suprapubic catheter therapy. Musculoskeletal History: Reports: Arthritis, Fracture, Osteoarthritis Other Musculoskeletal History: Left shoulder fracture. Bilateral foot pain. Neurological History: Reports: CVA, Other (See Below) Other Neuro History: Subarachnoid hemorrhage with LOC and requires a cane for walking. Psychiatric History: Reports: Anxiety, Depression Endocrine/Metabolic History: Reports: Diabetes, Type II, Vitamin D Deficiency Other Endocrine/Metabolic History: Prediabetes. Hypokalemia. Hematologic History: Reports: Anemia Dermatologic History: Reports: Other (See Below) Other Dermatologic History: Seborrheic keratosis. Xerosis cutis. Venous stasis dermatitis. Dry skin. - Past Surgical History HEENT Surgical History: Reports: Cataract Surgery, Oral Surgery, Other (See Below) Other HEENT Surgeries/Procedures: Right-sided cataract surgery. Multiple teeth extractions. Cardiovascular Surgical History: Reports: Coronary Artery Bypass GI Surgical History: Reports: Appendectomy, Cholecystectomy, Other (See Below) Other GI Surgeries/Procedures: Appendectomy at age 6. Cholecystectomy in about 2017. Male Surgical History: Reports: Suprapubic Catheter Placement Musculoskeletal Surgical History: Reports: Shoulder Surgery, Other (See Below) Other Musculoskeletal Surgeries/Procedures:: Unknown type of left shoulder surgeryunsuccessful. - Past Imaging History Past Imaging History: Reports: CAT Scan (CT of the abdomen and pelvis with IV contrast on 07/10/[address] [facility] Swallow Study (07/12/[address] [facility].) Social & Family History - Family History Family Medical History: Noncontributory - Living Situation & Occupation Living situation: Reports: Extended Care Facility ([facility] in [facility]) ED ROS GENERAL - Review of Systems Review Of Systems: Comprehensive ROS is negative, except as noted in HPI. ED EXAM, GI/ABD - Physical Exam Exam: See Below Exam Limited By: No Limitations General Appearance: Alert, WD/WN, No Apparent Distress Eyes: Bilateral: EOMI (Note previously known anisocoria with right pupil at about 6 mm in diameter and left pupil 3 mm in diameter with occluded right glasses lens secondary to previously known diplopia.) Ears: Normal External Exam, Normal Canal, Other (Mild bilateral presbycusis with patient not having his hearing aids today.) Nose: Normal Mucosa, No Blood, Clear Rhinorrhea Throat/Mouth: Normal Inspection, Normal Lips, Normal Teeth (Multiple missing teeth), Normal Gums, Normal Oropharynx, Normal Voice, No Airway Compromise, Dysphagia (Note dysphagia by history and recent swallow study as above.). No: Perioral Cyanosis Head: Atraumatic, Normocephalic. No: Facial Swelling, Facial Tenderness, Sinus Tenderness Neck: Supple, Non-Tender, Full Range of Motion, Carotid Bruit (Mild bilateral). No: Lymphadenopathy (L), Lymphadenopathy (R), Thyromegaly Respiratory/Chest: No Respiratory Distress, No Accessory Muscle Use, Crackles, Rales (Bilateral basilar with moderate diffuse bowel sounds in this area). No: Pleural Rub, Retractions Cardiovascular: Normal Peripheral Pulses, Tachycardia (Occasional), Irregularly Irregular. No: No Edema (Mild dependent edema as below), Gallop/S3, Gallop/S4, Friction Rub GI/Abdominal Exam: Non-Tender, No Abnormal Bruit, No Mass, Pelvis Stable, Distended (Severe), Abnormal Bowel Sounds (Significant diffuse elevated bowel sounds high-pitched in nature), Hernia (Left inguinal indirectmoderate). No: Guarding, Rigid, Rebound, Tender, Mass (Male) Exam: Deferred, Hernia (Moderate left inguinal hernia), Other ( Suprapubic catheter. Moderate phimosis.). No: Normal Prostate (As below), Circumcised (Noncircumcised), Inguinal Lymphadenopathy, Scrotum Tenderness (L), Scrotum Tenderness (R), Suprapubic Fullness, Testicular Mass, Testicular Tenderness (L), Testicular Tenderness (R), Urethral Discharge Rectal (Males) Exam: Heme - Stool, Hemorrhoids (Grade 23 internal/external hemorrhoids), Other (Thin brown liquid stool). No: Prostate Normal (Moderate to severe prostate enlargement ), Black Stool, Bloody Stool, Fecal Impaction, Prostate Nodule, Tenderness (No ductal space tenderness) Back Exam: Normal Inspection, Full Range of Motion. No: CVA Tenderness (L), CVA Tenderness (R), Muscle Spasm Extremities: Normal Capillary Refill, Pedal Edema (Trace bilateral pedal/ pretibial edema), Arm Pain (As above), Limited Range of Motion (As below), Other (Crease range of motion of the left shoulderchronic. Moderate to severe varicose veins in the left adductor region.). No: Normal Range of Motion, Non- Tender (Chronic left shoulder pain with range of motion with no history of recent injury), Joint Swelling, Adelia's Sign Neurological: Alert, Oriented, CN II-XII Intact, Normal Cognition, Normal Gait, Normal Reflexes (Negative Babinski's), No Motor/Sensory Deficits Psychiatric: Normal Affect, Normal Mood Skin Exam: No Rash, Ecchymosis (Bilateral ecchymosis in the dorsal surfaces of the hands and arms really secondary to previous blood draws and IV placements). No: Diaphoretic, Increased Warmth, Lymphangitis, Wound/Incision Lymphatic: No Adenopathy Course - Vital Signs Last Recorded V/S: Last Vital Signs Temp 36.3 C 07/19/19 12:57 Pulse 92 07/19/19 15:55 Resp 21 H 07/19/19 15:35 BP 99/45 L 07/19/19 15:55 Pulse Ox 93 L 07/19/19 15:35 Vital Signs - 24 hr 07/19/19 07/19/19 07/19/19 12:57 13:07 14:55 Temperature [ 36.3 C Temporal] Pulse, 91 95 Peripheral [ Left Pulse Oximetry] Respiratory 16 18 Rate Blood Pressure 86/64 L 100/66 [Left Lower Arm ] Blood Pressure 95/62 [Right Upper Arm] O2 Sat by Pulse 96 95 Oximetry 07/19/19 07/19/19 07/19/19 15:06 15:35 15:55 Temperature [ Temporal] Pulse, 114 H 102 H 92 Peripheral [ Left Pulse Oximetry] Respiratory 22 H 21 H Rate Blood Pressure 104/66 [Left Lower Arm ] Blood Pressure 98/61 99/45 L [Right Upper Arm] O2 Sat by Pulse 94 L 93 L Oximetry - Orders/Labs/Meds Orders: Active Orders 24 hr Category Date Time Status Cardiac Monitoring [RC] . DIRECTED Care 07/19/19 13:40 Active Peripheral IV Care [RC] . DIRECTED Care 07/19/19 13:09 Active Nothing Per Oral Diet [DIET] Diet 07/19/19 Breakfast Active Abdomen 1V Upright [CR] Stat Exams 07/19/19 13:40 Taken Abdomen Series w Chest 1V [CR] Stat Exams 07/19/19 13:08 Taken CULTURE SPUTUM + SMEAR [RM] Routine Lab 07/19/19 14:36 Ordered Sodium Chloride 0.9% [Saline Flush] Med 07/19/19 13:08 Active 10 ml FLUSH ASDIRECTED PRN metroNIDAZOLE/Normal Saline [Flagyl 500 MG in NS 100 ML Med 07/19/19 14:00 Active ] 500 mg Premix Bag 1 bag IV Q8H NG [Nasogastric Orogastric Tube Insertion] [OM.PC] Oth 07/19/19 13:40 Ordered Routine Obtain Past Medical Record [OM.PC] Urgent Oth 07/19/19 13:08 Active Peripheral IV Insertion Adult [OM.PC] Stat Oth 07/19/19 13:08 Ordered Resuscitation Status Stat Resus Stat 07/19/19 13:08 Ordered Medication Orders Metronidazole 500 mg/ Premix 100 mls @ 100 mls/hr IV Q8H [facility] Last Admin: 07/19/19 15:22 Dose: 100 mls/hr Sodium Chloride (Saline Flush) 10 ml FLUSH ASDIRECTED PRN PRN Reason: Keep Vein Open Last Admin: 07/19/19 15:22 Dose: 10 ml Admin: 07/19/19 14:24 Dose: 10 ml Labs: Laboratory Tests 07/19/19 07/19/19 07/19/19 Range/Units 13:55 13:55 13:55 WBC 5.8 (4.0-10.2) K/uL RBC 4.72 (4.33-5.41) M/uL Hgb 13.6 (13.1-16.8) g/dL Hct 42.9 (39.0-49.0) % MCV 90.9 (84.0-98.0) fL MCH 28.8 (28.2-33.3) pg MCHC 31.7 (31.7-36.0) g/dL RDW 15.5 H (11.2-14.1) % Plt Count 137 L D (150-350) K/uL Neut % (Auto) 71.6 (45.0-80.0) % Lymph % (Auto) 16.1 (10.0-50.0) % [place] % (Auto) 9.8 (2.0-14.0) % Eos % (Auto) 2.2 (0.0-5.0) % Baso % (Auto) 0.3 (0.0-2.0) % Neut # (Auto) 4.14 (1.40-7.00) K/uL Lymph # (Auto) 0.93 (0.50-3.50) K/uL [place] # (Auto) 0.57 (0.00-1.00) K/uL Eos # (Auto) 0.13 (0.00-0.50) K/uL Baso # (Auto) 0.02 (0.00-0.20) K/uL Sodium 144 (136-145) mmol/L Potassium 4.0 (3.5-5.1) mmol/L Chloride 108 H (98-107) mmol/L Carbon Dioxide 26.1 (21.0-32.0) mmol/L BUN 23 H (7-18) mg/dL Creatinine 0.92 (0.51-1.17) mg/dL Est Cr Clr Drug Dosing TNP Estimated GFR (MDRD) > 60 mL/min Glucose 120 H (74-106) mg/dL Lactic Acid 1.7 (0.4-2.0) mmol/L Calcium 8.9 (8.5-10.1) mg/dL Microbiology 07/19/19 15:01 Stool Occult Blood (HARPREET) - Final Stool / Feces NEGATIVE OCCULT BLOOD REFERENCE RANGE: NEGATIVE Meds: Medications Generic Name Dose Route Start Last Admin Trade Name Freq PRN Reason Stop Dose Admin Metronidazole 500 mg/ Premix 100 mls @ 100 mls/hr 07/19/19 14:00 07/19/19 15: 22 IV 100 mls/hr Q8H VINCE Administration Sodium Chloride 10 ml 07/19/19 13:08 07/19/19 15:22 Saline Flush FLUSH 10 ml ASDIRECTED PRN Administration Keep Vein Open Discontinued Medications Generic Name Dose Route Start Last Admin Trade Name Freq PRN Reason Stop Dose Admin Lactated Ringer's 1,000 mls @ 999 mls/hr 07/19/19 13:08 07/19/19 14:22 Ringers, Lactated IV 07/19/19 14:08 999 mls/hr .BOLUS ONE Administration - Radiology Interpretation Free Text/Narrative:: athletic monitor shows atrial fibrillation with average heart rate in the 90s to 100s with very occasional PVCs and tachycardia in the 110s to 120s with no other ectopy or arrhythmia. Note brief vasovagal episode of bradycardia in the 40s to 50s shortly after NG tube placement with spontaneous quick resolution without medical therapy and without sequelae. Acute abdominal x-ray shows evidence of moderate consolidation of the right middle lobe with additional moderate infiltrates of the right perihilar region with possible 2 cm in diameter abscess versus evidence of diaphragmatic hernia in the right lower lobe. Severe diffuse bowel gaseous distention, Including fluid levels indicative of an ileus and obstruction. Multiple abdominal surgical clips and also status post medial sternotomy. No cardiomegaly or CHF although some blunting of the right CVA. Moderate COPD changes present. X-rays, 1 view upright, shows adequate NG tube placement with otherwise findings as above. Departure - Departure Time of Disposition: 16:28 Disposition: DC/Tfer to Acute Hospital 02 Condition: Fair Clinical Impression: Hypertension Qualifiers: Hypertension type: essential hypertension Qualified Code(s): I10 - Essential ( primary) hypertension Coronary artery disease Qualifiers: Coronary Disease-Associated Artery/Lesion type: bypass graft [place] vs. transplanted heart: [place] heart Associated angina: without angina Qualified Code(s): I25.810 - Atherosclerosis of coronary artery bypass graft(s) without angina pectoris COPD (chronic obstructive pulmonary disease) Qualifiers: COPD type: COPD with acute lower respiratory infection Qualified Code(s): J44.0 - Chronic obstructive pulmonary disease with (acute) lower respiratory infection Osteoarthritis Qualifiers: Osteoarthritis location: multiple joints Osteoarthritis type: primary Qualified Code(s): M15.0 - Primary generalized (osteo)arthritis Atrial fibrillation Qualifiers: Atrial fibrillation type: longstanding persistent Qualified Code(s): I48.11 - Longstanding persistent atrial fibrillation Bowel obstruction Qualifiers: Intestinal obstruction type: unspecified ileus Qualified Code(s): K56.7 - Ileus , unspecified Pneumonia Qualifiers: Pneumonia type: aspiration pneumonia Aspiration pneumonia type: due to vomit Laterality: right Lung location: middle lobe of lung Qualified Code(s): J69.0 - Pneumonitis due to inhalation of food and vomit - Discharge Information *PRESCRIPTION DRUG MONITORING PROGRAM REVIEWED*: Not Applicable *COPY OF PRESCRIPTION DRUG MONITORING REPORT IN PATIENT JOE: Not Applicable Referrals: Sheets-Carol Story MD [Primary Care Provider] - Forms: ED Department Discharge, Interfacility Transfer ROBERTO Sepsis Event Note - Evaluation Sepsis Screening Result: No Definite Risk - Focused Exam Vital Signs: Vital Signs Temp Pulse Resp BP BP Pulse Ox 07/19/19 15:55 92 99/45 L 07/19/19 15:35 102 H 21 H 98/61 93 L 07/19/19 15:06 114 H 22 H 104/66 94 L 07/19/19 14:55 95 18 100/66 95 07/19/19 13:07 95/62 07/19/19 12:57 36.3 C 91 16 86/64 L 96 Date Exam was Performed: 07/19/19 Time Exam was Performed: 16:28 - Problem List & Annotations (1) Bowel obstruction SNOMED Code(s): 85924901 Code(s): K56.609 - UNSP INTESTNL OBST, UNSP TO PARTIAL VERSUS COMPLETE OBST Status: Acute Priority: High Current Visit: Yes Onset Date: Annotation/Comment:: Recurrent severe bowel obstruction by today's x-rays with previous evaluation in this facility on 07/10/2019. Telephone consultation at 13:47 hours with Sherley, out of school hours care worker at the [facility], who does give us approval for transfer of the patient to [facility]. Note that the patient is an extremely hard blood draw and IV stick with secondary delay of further consultation for transfer without sequelae. Telephone consultation with [facility] initially at 15 :[address] Craven, hospitalist at [facility], who is requesting concomitant surgical consultation. Surgical consultation at 15:[address] Farfan, general surgeon at [facility], who does agree to accept the patient for direct admission to his service and further treatment and evaluation, with no further treatment recommendations given. He is in agreement with our current treatment plan, including administration of IV Flagyl, which is beneficial for his probable aspiration pneumonia as above, with additional severe diarrhea possibly secondary to C. difficile colitis secondary to IV antibiotic therapy during recent hospitalization at the [facility] as above. Some mild hypotension on patient's arrival to the emergency room, which did respond well to a 1 L IV bolus of lactated Ringer's. No fever, leukocytosis , or lactic acid elevation indicative of sepsis. Sputum specimen could not be obtained. Ambulance transfer with forestry supervisor accompaniment. Secondary to recent CT scan of the abdomen pelvis with IV contrast on 07/10/2019 at the [facility] in [place] a CT scan was not repeated at this facility. Note requested official reports of CT scan of the abdomen and pelvis, recent swallowing study, and discharge summary from the [facility] in [place] have not been received to this point. Previous CT scan currently was inconclusive with repeat colonoscopy recommended by the surgical training specialist at the [facility]. Note nonincarcerated left inguinal hernia. IV Flagyl therapy will be continued in route. NG tube therapy was placed with adequate placement by follow-up x-rays. I did leave a telephone message with the patient's POA, Chinedu Galeano, telephone #[phone], informing him of patient transfer. Vital signs and clinical exam stable at time of transfer. Qualifiers: Intestinal obstruction type: unspecified ileus Qualified Code(s): K56.7 - Ileus, unspecified (2) Atrial fibrillation SNOMED Code(s): 35844612 Code(s): I48.91 - UNSPECIFIED ATRIAL FIBRILLATION Status: Acute Priority : High Current Visit: Yes Annotation/Comment:: Note that the patient did receive his medications this morning although has not yet received his new medications. He is not currently on Coumadin or other anticoagulation likely secondary to his previous subarachnoid hemorrhage. Patient does have a known history of PVCs, including today, however these are nonsymptomatic. Note additional brief vasovagal episode of bradycardia shortly after NG tube placement as above, which was also nonsymptomatic and without sequelae. Continue to observe closely by accepting and regular providers. Qualifiers: Atrial fibrillation type: longstanding persistent Qualified Code(s): I48.11 - Longstanding persistent atrial fibrillation (3) COPD (chronic obstructive pulmonary disease) SNOMED Code(s): 99910158 Code(s): J44.9 - CHRONIC OBSTRUCTIVE PULMONARY DISEASE, UNSPECIFIED Status : Acute Current Visit: Yes Annotation/Comment:: Stable by history although evidence of right middle lobe and right perihilar pneumonia by x-ray with possibility of aspiration pneumonia. Note positive recent swallowing study for dysphagia. Patient is afebrile with no leukocytosis. He is an extremely difficult blood draw with blood cultures not able to be obtained. Qualifiers: COPD type: COPD with acute lower respiratory infection Qualified Code(s): J44.0 - Chronic obstructive pulmonary disease with (acute) lower respiratory infection (4) Pneumonia SNOMED Code(s): 143473626 Code(s): J18.9 - PNEUMONIA, UNSPECIFIED ORGANISM Status: Acute Priority: High Current Visit: Yes Onset Date: 07/19/19 Annotation/Comment:: As above. Sputum could not be obtained for culture and sensitivity. Qualifiers: Pneumonia type: aspiration pneumonia Aspiration pneumonia type: due to vomit Laterality: right Lung location: middle lobe of lung Qualified Code( s): J69.0 - Pneumonitis due to inhalation of food and vomit (5) Coronary artery disease SNOMED Code(s): 65145837 Code(s): I25.10 - ATHSCL HEART DISEASE OF [place] CORONARY ARTERY W/O ANG PCTRS Status: Chronic Priority: Medium Current Visit: Yes Annotation/ Comment:: No Chest pain or anginal type symptoms. Qualifiers: Coronary Disease-Associated Artery/Lesion type: bypass graft [place] vs. transplanted heart: [place] heart Associated angina: without angina Qualified Code(s): I25.810 - Atherosclerosis of coronary artery bypass graft(s) without angina pectoris (6) Hypertension SNOMED Code(s): 26335428 Code(s): I10 - ESSENTIAL (PRIMARY) HYPERTENSION Status: Chronic Priority : Medium Current Visit: Yes Annotation/Comment:: Blood Pressures under good control in the emergency room despite occasional mild tachycardia and initial hypotension as above. No indication of sepsis. Continue to observe closely by regular providers. Qualifiers: Hypertension type: essential hypertension Qualified Code(s): I10 - Essential (primary) hypertension (7) Osteoarthritis SNOMED Code(s): 471407481 Code(s): M19.90 - UNSPECIFIED OSTEOARTHRITIS, UNSPECIFIED SITE Status: Chronic Priority: Medium Current Visit: Yes Annotation/Comment:: Stable by history Qualifiers: Osteoarthritis location: multiple joints Osteoarthritis type: primary Qualified Code(s): M15.0 - Primary generalized (osteo)arthritis - Problem List Review Problem List Initiated/Reviewed/Updated: Yes - My Orders Last 24 Hours: My Active Orders 07/19/19 13:08 Abdomen Series w Chest 1V [CR] Stat Sodium Chloride 0.9% [Saline Flush] 10 ml FLUSH ASDIRECTED PRN Obtain Past Medical Record [OM.PC] Urgent Peripheral IV Insertion Adult [OM.PC] Stat Resuscitation Status Stat 07/19/19 13:09 Peripheral IV Care [RC] . DIRECTED 07/19/19 13:40 Cardiac Monitoring [RC] . DIRECTED Abdomen 1V Upright [CR] Stat NG [Nasogastric Orogastric Tube Insertion] [OM.PC] Routine 07/19/19 14:00 metroNIDAZOLE/Normal Saline [Flagyl 500 MG in NS 100 ML] 500 mg Premix Bag 1 bag IV Q8H 07/19/19 14:36 CULTURE SPUTUM + SMEAR [RM] Routine 07/19/19 Breakfast Nothing Per Oral Diet [DIET] - Assessment/Plan Last 24 Hours: My Active Orders 07/19/19 13:08 Abdomen Series w Chest 1V [CR] Stat Sodium Chloride 0.9% [Saline Flush] 10 ml FLUSH ASDIRECTED PRN Obtain Past Medical Record [OM.PC] Urgent Peripheral IV Insertion Adult [OM.PC] Stat Resuscitation Status Stat 07/19/19 13:09 Peripheral IV Care [RC] . DIRECTED 07/19/19 13:40 Cardiac Monitoring [RC] . DIRECTED Abdomen 1V Upright [CR] Stat NG [Nasogastric Orogastric Tube Insertion] [OM.PC] Routine 07/19/19 14:00 metroNIDAZOLE/Normal Saline [Flagyl 500 MG in NS 100 ML] 500 mg Premix Bag 1 bag IV Q8H 07/19/19 14:36 CULTURE SPUTUM + SMEAR [RM] Routine 07/19/19 Breakfast Nothing Per Oral Diet [DIET] Assessment:: As above. Plan: As above. Extensive precautions were given to the patient, who is in agreement with the treatment plan. Ambulance transfer with forestry supervisor accompaniment.
[2019-07-19] MEDS ORDERED: metroNIDAZOLE/Normal Saline 500 MG in Premix Bag 1 BAG IV SCH (14:00)
[2019-07-19] MEDS: Sodium Chloride 0.9% 10 ML Syringe FLUSH PRN ×2 (14:24→15:22)
[2019-07-19 14:29] LABS: CHLORIDE,CL 108 mmol/L (98-107); SODIUM,NA 144 mmol/L (136-145)
== END 2019-07-19 16:26 ==
LOC: LL.ED 12:52
DX: K56.609 Unspecified intestinal obstruction, unspecified as to partial versus complete obstruction (principal); J69.0 Pneumonitis due to inhalation of food and vomit; I11.0 Hypertensive heart disease with heart failure; I25.810 Atherosclerosis of coronary artery bypass graft(s) without angina pectoris; J44.0 Chronic obstructive pulmonary disease with (acute) lower respiratory infection; I48.11 Longstanding persistent atrial fibrillation; I95.9 Hypotension, unspecified; M15.0 Primary generalized (osteo)arthritis; I50.42 Chronic combined systolic (congestive) and diastolic (congestive) heart failure; I25.5 Ischemic cardiomyopathy; G47.30 Sleep apnea, unspecified; E11.51 Type 2 diabetes mellitus with diabetic peripheral angiopathy without gangrene; E78.00 Pure hypercholesterolemia, unspecified; I08.0 Rheumatic disorders of both mitral and aortic valves; G89.29 Other chronic pain; M25.512 Pain in left shoulder; H40.9 Unspecified glaucoma; H91.90 Unspecified hearing loss, unspecified ear; H54.7 Unspecified visual loss; K59.09 Other constipation; R13.10 Dysphagia, unspecified; R32 Unspecified urinary incontinence; N31.9 Neuromuscular dysfunction of bladder, unspecified; F32.9 Major depressive disorder, single episode, unspecified; F41.9 Anxiety disorder, unspecified; E55.9 Vitamin D deficiency, unspecified; Z90.49 Acquired absence of other specified parts of digestive tract; Z96.0 Presence of urogenital implants; Z79.899 Other long term (current) drug therapy; Z95.1 Presence of aortocoronary bypass graft; Z86.73 Personal history of transient ischemic attack (TIA), and cerebral infarction without residual deficits
CPT/HCPCS: 36415; 43752; 74018; 74022; 80048; 82272; 83605; 85025; 96361; 96365; 99285; J3490; J7120; 99284

== ENCOUNTER 2019-07-27 09:19 | Inpatient (IN) | payer MEDICARE, BC ==
[2019-07-27] MEDS ORDERED: Albuterol 8 GM Inhaler INH PRN (11:36)
[2019-07-27] MEDS ORDERED: Acetaminophen 500 MG Tab PO PRN (11:36)
--- NOTE | 2019-07-27 11:44 | PCM.HP.2 ---
H&P History of Present Illness - General Date of Service: 07/27/19 Admit Problem/Dx: Admission Diagnosis/Problem Admission Diagnosis/Problem Weakness Source of Information: Patient, Old Records History Limitations: Reports: No Limitations - Related Data Allergies/Adverse Reactions: Allergies Allergy/AdvReac Type Severity Reaction Status Date / Time No Known Allergies Allergy Verified 07/27/19 09:12 Home Medications: Home Meds Albuterol [Ventolin HFA] 2 puff INH Q6HR PRN MDD Asthma 05/15/19 [History] Carboxymethylcellulose Sodium [Artificial Tears] 2 drop EYEBOTH QID@07,12,,05/15/19 [History] Cholecalciferol (Vitamin D3) [Vitamin D3] 25 mcg PO TID@,,05/15/19 [ History] Furosemide [Lasix] 20 mg PO DAILY@0700 05/15/19 [History] Metoprolol Tartrate [Lopressor] 50 mg PO BID@0700,199905/15/19 [History] Tiotropium [Spiriva Handihaler] 18 mcg INH BEDTIME 05/15/19 [History] atorvaSTATin [Lipitor] 40 mg PO BEDTIME 05/15/19 [History] Acetaminophen 1,000 mg PO Q6HR PRN 07/27/19 [History] Aspirin [Halfprin] 81 mg PO DAILY 07/27/19 [History] Lidocaine 5% [Lidoderm 5%] 1 patch TOP DAILY 07/27/19 [History] Loperamide [Imodium] 2 mg PO ASDIRECTED PRN 07/27/19 [History] Mometasone Furoate [Asmanex 220 MCG] 1 puff INH BEDTIME 07/27/19 [History] Potassium Chloride 15 ml PO DAILY 07/27/19 [History] Past Medical History HEENT History: Reports: Cataract, Glaucoma, Hard of Hearing, Impaired Vision, Other (See Below) Other HEENT History: The patient wears glasses with an occluded right glasses lens secondary to diplopia with known anisocoria. Dry eye syndrome. 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 Chronic tinnitus. History of epistaxis with cauterization. Cardiovascular History: Reports: Afib, Arrhythmia, Bypass, CAD, Cardiomyopathy, Heart Failure, Heart Murmur, High Cholesterol, Hypertension, PVD, Syncope, Other (See Below) Other Cardiovascular History: Aortic valve and mitral valve insufficiency. 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 Varicose veins. PVCs Respiratory History: Reports: Asthma, Bronchitis, Recurrent, COPD, Intubation, Previous, Sleep Apnea Gastrointestinal History: Reports: Bowel Obstruction, Chronic Constipation, Chronic Diarrhea, Fecal Incontinence, Hemorrhoids, Other (See Below) Other Gastrointestinal History: Dysphagia. Left inguinal hernia. Recurrent previous ileus and bowel obstruction last on 07/10/2019. Genitourinary History: Reports: BPH, Retention, Urinary, Urinary Incontinence, UTI, Recurrent Other Genitourinary History: Neurogenic bladder with chronic suprapubic catheter therapy. Musculoskeletal History: Reports: Arthritis, Fracture, Osteoarthritis Other Musculoskeletal History: Left shoulder fracture. Bilateral foot pain. Neurological History: Reports: CVA, Other (See Below) Other Neuro History: Subarachnoid hemorrhage with LOC and requires a cane for walking. Psychiatric History: Reports: Anxiety, Depression Endocrine/Metabolic History: Reports: Diabetes, Type II, Vitamin D Deficiency Other Endocrine/Metabolic History: Prediabetes. Hypokalemia. Hematologic History: Reports: Anemia Dermatologic History: Reports: Other (See Below) Other Dermatologic History: Seborrheic keratosis. Xerosis cutis. Venous stasis dermatitis. Dry skin. - Infectious Disease History Infectious Disease History: Reports: Chicken Pox - Past Surgical History HEENT Surgical History: Reports: Cataract Surgery, Oral Surgery, Other (See Below) Other HEENT Surgeries/Procedures: Right-sided cataract surgery. Multiple teeth extractions. Cardiovascular Surgical History: Reports: Coronary Artery Bypass GI Surgical History: Reports: Appendectomy, Cholecystectomy, Other (See Below) Other GI Surgeries/Procedures: Appendectomy at age 6. Cholecystectomy in about 2017. Male Surgical History: Reports: Suprapubic Catheter Placement Musculoskeletal Surgical History: Reports: Shoulder Surgery, Other (See Below) Other Musculoskeletal Surgeries/Procedures:: Unknown type of left shoulder surgeryunsuccessful. - Past Imaging History Past Imaging History: Reports: CAT Scan (CT of the abdomen and pelvis with IV contrast on 07/10/2019 at the [facility] Swallow Study (07/12/2019 at the [facility].) Social & Family History - Family History Family Medical History: Noncontributory - Living Situation & Occupation Living situation: Reports[facility] [place] H&P Review of Systems - Review of Systems: Review Of Systems: See Below General: Reports: Weakness HEENT: Reports: Visual Changes (diplopia not new) Pulmonary: Reports: No Symptoms Cardiovascular: Reports: No Symptoms Gastrointestinal: Reports: Difficulty Swallowing, Other (recent bowel obstruction) Genitourinary: Reports: Other (supra-pubic catheter) Musculoskeletal: Reports: No Symptoms Skin: Reports: No Symptoms Psychiatric: Reports: No Symptoms Neurological: Reports: Weakness Hematologic/Lymphatic: Reports: No Symptoms Immunologic: Reports: No Symptoms Exam - Exam Exam: See Below - Vital Signs Vital Signs: Last Vital Signs Temp 97.4 F 07/27/19 09:23 Pulse 79 07/27/19 09:23 Resp 17 07/27/19 09:23 BP 94/47 L 07/27/19 09:23 Pulse Ox 95 07/27/19 09:23 Weight: 176 lb 11.2 oz - Exam Quality Assessment: Urinary Catheter (supra-pubic) General: Alert, Cooperative HEENT: Hearing Intact, Mucosa Moist & [place], Other (diplopia) Neck: Trachea Midline Lungs: Clear to Auscultation, Normal Respiratory Effort Cardiovascular: Regular Rate, Regular Rhythm GI/Abdominal Exam: Normal Bowel Sounds, Soft, Non-Tender, No Distention (Male) Exam: No Hernia Rectal (Males) Exam: Deferred Back Exam: Normal Inspection Extremities: Normal Inspection, Non-Tender Skin: Warm, Dry, Intact Neurological: Reflexes Equal Bilateral Neuro Extensive - Mental Status: Alert, Normal Mood/Affect, Normal Cognition, Memory Intact Neuro Extensive - Motor, Sensory, Reflexes: Normal Reflexes Psychiatric: Alert, Normal Affect, Normal Mood Sepsis Event Note - Focused Exam Vital Signs: Vital Signs Temp Pulse Resp BP Pulse Ox 07/27/19 09:23 97.4 F 79 17 94/47 L 95 Date Exam was Performed: 07/27/19 Time Exam was Performed: 11:38 *Q Meaningful Use (ADM) - VTE *Q VTE Mechanical Contraindications *Q: At Risk for Falls - Problem List (1) Weakness SNOMED Code(s): 33645637 ICD Code: R53.1 - WEAKNESS Status: Acute Priority: High Current Visit: Yes (2) Post-operative state SNOMED Code(s): 56675268 ICD Code: Z98.890 - OTHER SPECIFIED POSTPROCEDURAL STATES Status: Acute Priority: High Current Visit: Yes (3) Bowel obstruction SNOMED Code(s): 01480478 ICD Code: K56.609 - UNSP INTESTNL OBST, UNSP TO PARTIAL VERSUS COMPLETE OBST Status: Acute Priority: Medium Current Visit: No Onset Date: Qualifiers: Intestinal obstruction type: other intestinal obstruction Intestinal obstruction extent: complete Qualified Code(s): K56.691 - Other complete intestinal obstruction (4) Atrial fibrillation SNOMED Code(s): 83530641 ICD Code: I48.91 - UNSPECIFIED ATRIAL FIBRILLATION Status: Acute Priority : High Current Visit: No Qualifiers: Atrial fibrillation type: longstanding persistent Qualified Code(s): I48.11 - Longstanding persistent atrial fibrillation (5) COPD (chronic obstructive pulmonary disease) SNOMED Code(s): 30132530 ICD Code: J44.9 - CHRONIC OBSTRUCTIVE PULMONARY DISEASE, UNSPECIFIED Status : Acute Priority: Low Current Visit: No Qualifiers: COPD type: chronic bronchitis Chronic bronchitis type: simple Qualified Code(s): J41.0 - Simple chronic bronchitis (6) PVCs (premature ventricular contractions) SNOMED Code(s): 55204176 ICD Code: I49.3 - VENTRICULAR PREMATURE DEPOLARIZATION Status: Acute Priority: High Current Visit: No Onset Date: 07/10/19 (7) Coronary artery disease SNOMED Code(s): 16513565 ICD Code: I25.10 - ATHSCL HEART DISEASE OF [place] CORONARY ARTERY W/O ANG PCTRS Status: Chronic Priority: Medium Current Visit: No Problem Details : No Chest pain or anginal type symptoms. Qualifiers: Coronary Disease-Associated Artery/Lesion type: [place] artery [place] vs. transplanted heart: [place] heart Associated angina: without angina Qualified Code(s): I25.10 - Atherosclerotic heart disease of [place] coronary artery without angina pectoris (8) Hyperlipidemia SNOMED Code(s): 29886882 ICD Code: E78.5 - HYPERLIPIDEMIA, UNSPECIFIED Status: Chronic Priority: Medium Current Visit: No Qualifiers: Hyperlipidemia type: mixed hyperlipidemia Qualified Code(s): E78.2 - Mixed hyperlipidemia (9) Hypertension SNOMED Code(s): 64011812 ICD Code: I10 - ESSENTIAL (PRIMARY) HYPERTENSION Status: Chronic Priority : Medium Current Visit: No Qualifiers: Hypertension type: essential hypertension (10) Osteoarthritis SNOMED Code(s): 712036778 ICD Code: M19.90 - UNSPECIFIED OSTEOARTHRITIS, UNSPECIFIED SITE Status: Chronic Priority: Medium Current Visit: No Qualifiers: Osteoarthritis location: multiple joints Osteoarthritis type: primary Qualified Code(s): M15.0 - Primary generalized (osteo)arthritis Problem List Initiated/Reviewed/Updated: Yes Orders Last 24hrs: Active Orders 24 hr Category Date Time Status Patient Status [ADT] Routine ADT 07/27/19 11:31 Ordered Ambulate [RC] ASDIRECTED Care 07/27/19 11:31 Ordered Height and Weight [RC] PER UNIT ROUTINE Care 07/27/19 11:33 Ordered May Shower [RC] ASDIRECTED Care 07/27/19 11:31 Ordered Oxygen Therapy [RC] PRN Care 07/27/19 11:31 Ordered Urinary Catheter Assessment [RC] ASDIRECTED Care 07/27/19 11:31 Ordered VTE/DVT Education [RC] PER UNIT ROUTINE Care 07/27/19 11:31 Ordered Vital Signs [RC] PER UNIT ROUTINE Care 07/27/19 11:31 Ordered Consult to Case Management/Developer [employer] [CONS] Cons 07/27/19 11:31 Ordered Routine OT Evaluation and Treatment [CONS] Routine Cons 07/27/19 11:31 Ordered PT Evaluation and Treatment [CONS] Routine Cons 07/27/19 11:31 Ordered TRAIN OPERATIONS SUPERVISOR Evaluation and Treatment [CONS] Routine Cons 07/27/19 11:31 Ordered Regular Diet [DIET] Diet 07/27/19 Lunch Ordered Acetaminophen [Tylenol Extra Strength] Med 07/27/19 11:36 Ordered 1,000 mg PO Q6HR PRN Albuterol [Ventolin HFA] Med 07/27/19 11:36 Ordered 2 puff INH Q6HR PRN Aspirin [Halfprin] Med 07/28/19 08:00 Ordered 81 mg PO DAILY Carboxymethylcellulose Sodium [Artificial Tears] Med 07/27/19 12:00 Ordered 2 drop EYEBOTH QID@07,12,16,20 Cholecalciferol (Vitamin D3) [Vitamin D3] Med 07/27/19 16:00 Ordered 25 mcg PO TID@07,16,20 Furosemide [Lasix] Med 07/28/19 07:00 Ordered 20 mg PO DAILY@0700 Lidocaine 5% [Lidoderm 5%] Med 07/28/19 08:00 Ordered 1 patch TOP DAILY Loperamide [Imodium] Med 07/27/19 11:36 Ordered 2 mg PO ASDIRECTED PRN Metoprolol Tartrate [Lopressor] Med 07/27/19 20:00 Ordered 50 mg PO BID@0700,2000 Mometasone Furoate [Asmanex 220 MCG] Med 07/27/19 20:00 Ordered 1 puff INH BEDTIME Potassium Chloride Med 07/28/19 08:00 Ordered 15 ml PO DAILY Tiotropium [Spiriva HandiHaler] Med 07/27/19 20:00 Ordered 18 mcg INH BEDTIME atorvaSTATin [Lipitor] Med 07/27/19 20:00 Ordered 40 mg PO BEDTIME Resuscitation Status Routine Resus Stat 07/27/19 11:31 Ordered Assessment/Plan Comment:: 07/27/19 Yash Story MD 83 yowm recent hospitalization for bowel obstruction, left inguinal hernia. He under-went surgery in [facility]. Now returns to [facility] bed for PT- OT-ST. Discharge plans to [facility] Basic [facility] when able. - Mortality Measure Prognosis:: Good
[2019-07-27] MEDS ORDERED: Loperamide 2 MG Tab PO PRN (12:00)
[2019-07-27] MEDS ORDERED: Polyvinyl Alcohol 1.4% Ophth Soln 15 ML Bottle EYEBOTH SCH (12:00)
[2019-07-27] MEDS ORDERED: Cholecalciferol (Vitamin D3) 25 MCG Tab PO SCH (16:00)
[2019-07-27] MEDS ORDERED: Tiotropium Inhaler 18 MCG Inhalation Powder Cap Kit of 5 INH SCH (20:00)
[2019-07-27] MEDS ORDERED: Metoprolol Tartrate 50 MG Tab PO SCH (20:00)
[2019-07-27] MEDS ORDERED: Remove Patch LIDOCAINE PATCH TRDERM SCH (20:00)
[2019-07-27] MEDS ORDERED: Mometasone Furoate Powder 220 MCG/Puff 14 Dose Inhaler INH SCH (20:00)
[2019-07-27] MEDS ORDERED: atorvaSTATin 40 MG Tab PO SCH (20:00)
[2019-07-28] MEDS ORDERED: Furosemide 20 MG Tab PO SCH (07:00)
[2019-07-28] MEDS ORDERED: Lidocaine 4% 1 each Patch TOP SCH (08:00)
[2019-07-28] MEDS ORDERED: Potassium Chloride 20 MEQ Tab.ER PO SCH (08:00)
[2019-07-28] MEDS ORDERED: Aspirin 81 MG Tab.EC PO SCH (08:00)
== END 2019-07-27 16:12 | disposition home or self-care (01) | DRG 948 ==
LOC: LL.MS 09:19 → UNDOADMIN 09:19 → LL.MS 11:31
PROVIDERS: ADMIT Family Medicine; ATTEND Family Medicine
DX: R53.1 Weakness (principal); K56.691 Other complete intestinal obstruction; I48.11 Longstanding persistent atrial fibrillation; I50.40 Unspecified combined systolic (congestive) and diastolic (congestive) heart failure; K40.90 Unilateral inguinal hernia, without obstruction or gangrene, not specified as recurrent; M15.0 Primary generalized (osteo)arthritis; J41.0 Simple chronic bronchitis; I25.10 Atherosclerotic heart disease of native coronary artery without angina pectoris; E78.2 Mixed hyperlipidemia; I49.3 Ventricular premature depolarization; E78.00 Pure hypercholesterolemia, unspecified; K59.09 Other constipation; F41.9 Anxiety disorder, unspecified; F32.9 Major depressive disorder, single episode, unspecified; D64.9 Anemia, unspecified; E55.9 Vitamin D deficiency, unspecified; N40.1 Benign prostatic hyperplasia with lower urinary tract symptoms; R33.8 Other retention of urine; I11.0 Hypertensive heart disease with heart failure; E11.51 Type 2 diabetes mellitus with diabetic peripheral angiopathy without gangrene; Z86.73 Personal history of transient ischemic attack (TIA), and cerebral infarction without residual deficits; Z90.49 Acquired absence of other specified parts of digestive tract; Z98.890 Other specified postprocedural states; Z98.49 Cataract extraction status, unspecified eye; Z79.82 Long term (current) use of aspirin; Z79.899 Other long term (current) drug therapy
CPT/HCPCS: 97161-GP; 97530-GP

== ENCOUNTER 2020-01-17 16:17 | Inpatient (IN) | payer MEDICARE, BC ==
[2020-01-17 17:22] LABS: CHLORIDE,CL 104 mmol/L (98-107); SODIUM,NA 137 mmol/L (136-145)
[2020-01-17] MEDS ORDERED: Acetaminophen 500 MG Tab PO PRN (18:28)
[2020-01-17] MEDS ORDERED: CORN STARCH TOP PRN (18:28)
--- NOTE | 2020-01-17 19:09 | EDM.PDOC ---
ED HPI GENERAL MEDICAL PROBLEM - General Chief Complaint: Respiratory Problem Stated Complaint: "I have pnemonia and it's getting worse" Time Seen by Provider: 01/17/20 16:25 Source of Information: Reports: Patient, Other (Supriya PITTMAN) History Limitations: Reports: No Limitations - History of Present Illness INITIAL COMMENTS - FREE TEXT/NARRATIVE: Patient sent here by primary provider to be treated for worsening right lower lobe pneumonia. Mild intermittent hypoxemia noted at [place] home. No fevers/chills. Patient overall feels that he is feeling pretty good and does not feel sick overall. Mild cough, sputum sometimes has small flecks blood. No other acute changes per patient's report or per primary provider. Did start daily Zithromax and Rocephin on FridayJanuary 13. Today was 3rd day of antibiotics. Repeat xray today shows worsening right lower pneumonia. Radiology reading considers possible aspiration pneumonia pattern. Primary provider has been working on scheduling patient for swallow study. Treatments CLAIM ADJUSTER: Reports: Breathing Treatments - Related Data Allergies Allergy/AdvReac Type Severity Reaction Status Date / Time No Known Allergies Allergy Verified 07/27/19 09:12 Home Meds: Home Meds Albuterol [Ventolin HFA] 2 puff INH Q6HR PRN MDD Asthma 05/15/19 [History] Carboxymethylcellulose Sodium [Artificial Tears] 2 drop EYEBOTH QID@,,,05/15/19 [History] Cholecalciferol (Vitamin D3) [Vitamin D3] 25 mcg PO TID@,,05/15/19 [History] Furosemide [Lasix] 20 mg PO DAILY@0700 05/15/19 [History] Metoprolol Tartrate [Lopressor] 50 mg PO BID@07,199905/15/19 [History] Tiotropium [Spiriva Handihaler] 18 mcg INH BEDTIME 05/15/19 [History] Acetaminophen 1,000 mg PO Q6HR PRN 07/27/19 [History] Aspirin [Halfprin] 81 mg PO ASDIRECTED 07/27/19 [History] Lidocaine 5% [Lidoderm 5%] 1 patch TOP DAILY@0700 07/27/19 [History] Loperamide [Imodium] 2 mg PO ASDIRECTED PRN 07/27/19 [History] Mometasone Furoate [Asmanex 220 MCG] 1 puff INH BEDTIME 07/27/19 [History] Potassium Chloride 15 ml PO DAILY 07/27/19 [History] Azithromycin [Zithromax] 500 mg PO DAILY@199901/17/20 [History] Barre Starch 1 applic TOP BID PRN 01/17/20 [History] Ipratropium/Albuterol Sulfate [Iprat-Albut 0.5-3(2.5) mg/3 ml] 3 ml IH BID@,01/17/20 [History] Ipratropium/Albuterol Sulfate [Iprat-Albut 0.5-3(2.5) mg/3 ml] 3 ml IH Q4HR PRN 01/17/20 [History] Pectin [Throat Drops] 6 mg PO Q2HR PRN 01/17/20 [History] Sertraline [Zoloft] 50 mg PO DAILY@0701/17/20 [History] Past Medical History HEENT History: Reports: Cataract, Glaucoma, Hard of Hearing, Impaired Vision, Other (See Below) Other HEENT History: The patient wears glasses with an occluded right glasses lens secondary to diplopia with known anisocoria. Dry eye syndrome. 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 Chronic tinnitus. History of epistaxis with cauterization. Cardiovascular History: Reports: Afib, Arrhythmia, Bypass, CAD, Cardiomyopathy, Heart Failure, Heart Murmur, High Cholesterol, Hypertension, PVD, Syncope, Other (See Below) Other Cardiovascular History: Aortic valve and mitral valve insufficiency. 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 Varicose veins. PVCs Respiratory History: Reports: Asthma, Bronchitis, Recurrent, COPD, Intubation, Previous, Sleep Apnea Gastrointestinal History: Reports: Bowel Obstruction, Chronic Constipation, Chronic Diarrhea, Fecal Incontinence, Hemorrhoids, Other (See Below) Other Gastrointestinal History: Dysphagia. Left inguinal hernia. Recurrent previous ileus and bowel obstruction last on 07/10/2019. Genitourinary History: Reports: BPH, Retention, Urinary, Urinary Incontinence, UTI, Recurrent Other Genitourinary History: Neurogenic bladder with chronic suprapubic catheter therapy. Musculoskeletal History: Reports: Arthritis, Fracture, Osteoarthritis Other Musculoskeletal History: Left shoulder fracture. Bilateral foot pain. Neurological History: Reports: CVA, Other (See Below) Other Neuro History: Subarachnoid hemorrhage with LOC and requires a cane for walking. Psychiatric History: Reports: Anxiety, Depression Endocrine/Metabolic History: Reports: Diabetes, Type II, Vitamin D Deficiency Other Endocrine/Metabolic History: Prediabetes. Hypokalemia. Hematologic History: Reports: Anemia Dermatologic History: Reports: Other (See Below) Other Dermatologic History: Seborrheic keratosis. Xerosis cutis. Venous stasis dermatitis. Dry skin. - Infectious Disease History Infectious Disease History: Reports: Chicken Pox - Past Surgical History HEENT Surgical History: Reports: Cataract Surgery, Oral Surgery, Other (See Below) Other HEENT Surgeries/Procedures: Right-sided cataract surgery. Multiple teeth extractions. Cardiovascular Surgical History: Reports: Coronary Artery Bypass GI Surgical History: Reports: Appendectomy, Cholecystectomy, Other (See Below) Other GI Surgeries/Procedures: Appendectomy at age 6. Cholecystectomy in about 2017. Male Surgical History: Reports: Suprapubic Catheter Placement Musculoskeletal Surgical History: Reports: Shoulder Surgery, Other (See Below) Other Musculoskeletal Surgeries/Procedures:: Unknown type of left shoulder surgeryunsuccessful. - Past Imaging History Past Imaging History: Reports: CAT Scan (CT of the abdomen and pelvis with IV contrast on 07/10/[address] [facility] Swallow Study (07/12/[address] [facility].) Social & Family History - Family History Family Medical History: Noncontributory - Caffeine Use Caffeine Use: Reports: None - Living Situation & Occupation Living situation: Reports: Extended Care Facility ([facility]) ED ROS GENERAL - Review of Systems Review Of Systems: See Below Constitutional: Denies: Fever, Chills, Malaise, Weakness, Night Sweats, Diaphoresis, Decreased Appetite, Weight Loss HEENT: Reports: Glasses, Other (no acute changes) Respiratory: Reports: Cough, Sputum, Hemoptysis (minimal). Denies: Shortness of Breath, Wheezing, Pleuritic Chest Pain Cardiovascular: Reports: No Symptoms GI/Abdominal: Reports: No Symptoms : Reports: Other (has indwelling blackman) Musculoskeletal: Reports: Other (no acute changes from baseline) Skin: Reports: Other (has peripheral vascular disease changes lower extremities and hands/forearms. ) Neurological: Reports: Other (no acute changes). Denies: Confusion, Dizziness, Headache Psychiatric: Reports: No Symptoms ED EXAM, GENERAL - Physical Exam Exam: See Below Exam Limited By: No Limitations General Appearance: Alert, WD/WN, No Apparent Distress, Other (sitting in wheelchair) Eye Exam: Bilateral Eye: EOMI, PERRL Ears: Hearing Grossly Normal Nose: No: Nasal Deformity, Nasal Swelling, Nasal Drainage Throat/Mouth: Normal Lips, Normal Voice, No Airway Compromise Head: Atraumatic, Normocephalic Neck: Supple, Non-Tender, Full Range of Motion Respiratory/Chest: No Respiratory Distress, No Accessory Muscle Use, Chest Non- Tender, Rhonchi (faint/bases) Cardiovascular: Irregularly Irregular GI/Abdominal: Normal Bowel Sounds, Soft, Non-Tender (Male) Exam: Deferred Rectal (Males) Exam: Deferred Back Exam: No: CVA Tenderness (L), CVA Tenderness (R), Muscle Spasm Extremities: Non-Tender. No: Increased Warmth, Mottled, Pallor Neurological: Alert, Oriented, Normal Cognition, Other Psychiatric: Normal Affect, Normal Mood Skin Exam: Warm, Dry, Intact, Other (darkening of skin/dry lower half extremities and lower forearms) Course - Vital Signs Last Recorded V/S: Last Vital Signs Temp 36.9 C 01/17/20 20:04 Pulse 76 01/17/20 20:18 Resp 21 H 01/17/20 20:04 BP 117/75 01/17/20 20:18 Pulse Ox 93 L 01/17/20 20:04 - Orders/Labs/Meds Orders: Active Orders 24 hr Category Date Time Status CULTURE BLOOD [BC] Stat Lab 01/17/20 16:49 Received CULTURE BLOOD [BC] Stat Lab 01/17/20 16:55 Received Blood Culture x2 Reflex Set [OM.PC] Stat Oth 01/17/20 16:53 Ordered Medication Orders Acetaminophen (Tylenol Extra Strength) 1,000 mg PO Q6HR PRN PRN Reason: Pain Albuterol/Ipratropium (Duoneb 3.0-0.5 Mg/3 Ml) 3 ml NEB Q6HRRT VINCE Last Admin: 01/17/20 20:20 Dose: 3 ml Documented by: AMNA Artificial Tears (Liquitears 1.4% Ophth Soln) 0 ml EYEBOTH QID@07,12,16,20 VINCE Aspirin (Halfprin) 81 mg PO MoWeFr@0700 [facility] Cholecalciferol (Vitamin D3) 25 mcg PO TID@,,20 [facility] Last Admin: 01/17/20 20:18 Dose: 25 mcg Documented by: AMNA Furosemide (Lasix) 20 mg IV BID [facility] Last Admin: 01/17/20 20:17 Dose: 20 mg Documented by: AMNA Clindamycin/Sodium Chloride (600 mg/ Premix) 50 mls @ 100 mls/hr IV Q8H [facility] Last Admin: 01/17/20 20:17 Dose: 100 mls/hr Documented by: AMNA Azithromycin 500 mg/ Sodium (Chloride) 250 mls @ 250 mls/hr IV Q24H [facility] Last Admin: 01/17/20 21:56 Dose: 250 mls/hr Documented by: RADHA Lidocaine (Aspercreme 4%) 1 each TOP DAILY@0700 [facility] Loperamide HCl (Imodium Ad) 2 mg PO SEECOMMENT PRN PRN Reason: DIARRHEA Metoprolol Tartrate (Lopressor) 50 mg PO BID@699,1999 [facility] Last Admin: 01/17/20 20:18 Dose: 50 mg Documented by: AMNA Mometasone Furoate (Asmanex 220 Mcg) 1 puff INH BEDTIME [facility] Last Admin: 01/17/20 20:17 Dose: 1 puff Documented by: AMNA Potassium Chloride (Potassium Chloride Solution) 20 meq PO DAILY [facility] Sertraline HCl (Zoloft) 50 mg PO DAILY@0700 [facility] Sodium Chloride (Saline Flush) 10 ml FLUSH ASDIRECTED PRN PRN Reason: Keep Vein Open Last Admin: 01/17/20 22:08 Dose: 10 ml Documented by: RADHA Tiotropium [place] (Spiriva Handihaler) 18 mcg INH BEDTIME [facility] Last Admin: 01/17/20 20:18 Dose: 1 inh Documented by: AMNA Labs: Laboratory Tests 01/17/20 01/17/20 01/17/20 Range/Units 16:49 16:49 16:49 WBC 6.2 (4.0-10.2) K/uL RBC 4.13 L (4.33-5.41) M/uL Hgb 11.8 L (13.1-16.8) g/dL Hct 36.9 L (39.0-49.0) % MCV 89.3 (84.0-98.0) fL MCH 28.6 (28.2-33.3) pg MCHC 32.0 (31.7-36.0) g/dL RDW 16.2 H (11.2-14.1) % Plt Count 188 (150-350) K/uL Neut % (Auto) 83.4 H (45.0-80.0) % Lymph % (Auto) 9.2 L (10.0-50.0) % Jackson % (Auto) 6.6 (2.0-14.0) % Eos % (Auto) 0.6 (0.0-5.0) % Baso % (Auto) 0.2 (0.0-2.0) % Neut # (Auto) 5.17 (1.40-7.00) K/uL Lymph # (Auto) 0.57 (0.50-3.50) K/uL Jackson # (Auto) 0.41 (0.00-1.00) K/uL Eos # (Auto) 0.04 (0.00-0.50) K/uL Baso # (Auto) 0.01 (0.00-0.20) K/uL Sodium (136-145) mmol/L Potassium (3.5-5.1) mmol/L Chloride (98-107) mmol/L Carbon Dioxide (21.0-32.0) mmol/L BUN (7-18) mg/dL Creatinine (0.51-1.17) mg/dL Est Cr Clr Drug Dosing mL/min Estimated GFR (MDRD) mL/min Glucose (74-106) mg/dL Lactic Acid 1.6 (0.4-2.0) mmol/L Calcium (8.5-10.1) mg/dL Magnesium 2.0 (1.8-2.4) mg/dL Total Bilirubin (0.2-1.0) mg/dL AST (15-37) U/L ALT (12-78) U/L Alkaline Phosphatase (46-116) IU/L NT-Pro-B Natriuret Pep 2743 H (0-125) pg/mL Total Protein (6.4-8.2) g/dL Albumin (3.4-5.0) g/dL 01/17/20 Range/Units 16:49 WBC (4.0-10.2) K/uL RBC (4.33-5.41) M/uL Hgb (13.1-16.8) g/dL Hct (39.0-49.0) % MCV (84.0-98.0) fL MCH (28.2-33.3) pg MCHC (31.7-36.0) g/dL RDW (11.2-14.1) % Plt Count (150-350) K/uL Neut % (Auto) (45.0-80.0) % Lymph % (Auto) (10.0-50.0) % Jackson % (Auto) (2.0-14.0) % Eos % (Auto) (0.0-5.0) % Baso % (Auto) (0.0-2.0) % Neut # (Auto) (1.40-7.00) K/uL Lymph # (Auto) (0.50-3.50) K/uL Jackson # (Auto) (0.00-1.00) K/uL Eos # (Auto) (0.00-0.50) K/uL Baso # (Auto) (0.00-0.20) K/uL Sodium 137 (136-145) mmol/L Potassium 4.9 (3.5-5.1) mmol/L Chloride 104 (98-107) mmol/L Carbon Dioxide 28.0 (21.0-32.0) mmol/L BUN 30 H (7-18) mg/dL Creatinine 0.71 (0.51-1.17) mg/dL Est Cr Clr Drug Dosing 71.12 mL/min Estimated GFR (MDRD) > 60 mL/min Glucose 189 H (74-106) mg/dL Lactic Acid (0.4-2.0) mmol/L Calcium 8.5 (8.5-10.1) mg/dL Magnesium (1.8-2.4) mg/dL Total Bilirubin 0.4 (0.2-1.0) mg/dL AST 12 L (15-37) U/L ALT 14 (12-78) U/L Alkaline Phosphatase 85 (46-116) IU/L NT-Pro-B Natriuret Pep (0-125) pg/mL Total Protein 7.0 (6.4-8.2) g/dL Albumin 2.7 L (3.4-5.0) g/dL Meds: Medications Generic Name Dose Route Start Last Admin Trade Name Freq PRN Reason Stop Dose Admin Acetaminophen 1,000 mg 01/17/20 18:28 Tylenol Extra Strength PO Q6HR PRN Pain Albuterol/Ipratropium 3 ml 01/17/20 20:00 01/17/20 20:20 Duoneb 3.0-0.5 Mg/3 Ml NEB 3 ml Q6HRRT VINCE Administration Artificial Tears 0 ml 01/17/20 22:00 Liquitears 1.4% Ophth Soln EYEBOTH QID@,,, [facility] Aspirin 81 mg 01/19/20 07:00 Halfprin PO MoWeFr@0700 [facility] Cholecalciferol 25 mcg 01/17/20 20:00 01/17/20 20:18 Vitamin D3 PO 25 mcg TID@, VINCE Administration Furosemide 20 mg 01/17/20 19:00 01/17/20 20:17 Lasix IV 20 mg BID VINCE Administration Clindamycin/Sodium Chloride 50 mls @ 100 mls/hr 01/17/20 19:00 01/17/20 20:17 600 mg/ Premix IV 100 mls/hr Q8H VINCE Administration Azithromycin 500 mg/ Sodium 250 mls @ 250 mls/hr 01/17/20 19:30 01/17/20 21:56 Chloride IV 250 mls/hr Q24H VINCE Administration Lidocaine 1 each 01/18/20 07:00 Aspercreme 4% TOP DAILY@0700 [facility] Loperamide HCl 2 mg 01/17/20 19:10 Imodium Ad PO SEECOMMENT PRN DIARRHEA Metoprolol Tartrate 50 mg 01/17/20 20:00 01/17/20 20:18 Lopressor PO 50 mg BID@0700,1999 VINCE Administration Mometasone Furoate 1 puff 01/17/20 20:00 01/17/20 20:17 Asmanex 220 Mcg INH 1 puff BEDTIME VINCE Administration Potassium Chloride 20 meq 01/18/20 08:00 Potassium Chloride Solution PO DAILY VINCE Sertraline HCl 50 mg 01/18/20 07:00 Zoloft PO DAILY@0700 VINCE Sodium Chloride 10 ml 01/17/20 20:21 01/17/20 22:08 Saline Flush FLUSH 10 ml ASDIRECTED PRN Administration Keep Vein Open Tiotropium [place] 18 mcg 01/17/20 20:00 01/17/20 20:18 Spiriva Handihaler INH 1 inh BEDTIME VINCE Administration Discontinued Medications Generic Name Dose Route Start Last Admin Trade Name Freq PRN Reason Stop Dose Admin Non-Formulary Medication 15 ml 01/18/20 08:00 Potassium Chloride PO DAILY VINCE - Re-Assessments/Exams Free Text/Narrative Re-Assessment/Exam: 01/17/20 19:13 Labs updated. Xray taken earlier today reviewed. Admit for further treatment of RLL pneumonia Departure - Departure Time of Disposition: 17:25 Disposition: Admitted As Inpatient 65 Condition: Good Clinical Impression: Pneumonia - Discharge Information *PRESCRIPTION DRUG MONITORING PROGRAM REVIEWED*: Not Applicable *COPY OF PRESCRIPTION DRUG MONITORING REPORT IN PATIENT JOE: Not Applicable Sepsis Event Note (ED) - Evaluation Sepsis Screening Result: No Definite Risk - Focused Exam Vital Signs: Vital Signs Temp Pulse Resp BP Pulse Ox 01/17/20 17:18 89 16 120/81 93 L 01/17/20 16:20 36.8 C 82 14 110/72 94 L 01/17/20 16:19 36.8 C 93 110/72 - Problem List & Annotations (1) Pneumonia SNOMED Code(s): 864916004 Code(s): J18.9 - PNEUMONIA, UNSPECIFIED ORGANISM Status: Acute Priority: High Current Visit: Yes Onset Date: 07/19/19 Annotation/Comment:: Right lower lobe pneumonia. Worsened over last few days despite three days of Zithromax and Rocephin. May have aspiration component. Mild intermittent hypoxemia. Will continue patient on Zithromax but add Clindamycin for coverage of aspiration pneumonia. Request for sputum culture. Qualifiers: Pneumonia type: aspiration pneumonia Aspiration pneumonia type: unspecified Laterality: right Lung location: lower lobe of lung Qualified Code(s): J69.0 - Pneumonitis due to inhalation of food and vomit (2) Dysphagia SNOMED Code(s): 43955352, 052417860 Code(s): R13.10 - DYSPHAGIA, UNSPECIFIED Status: Chronic Priority: Medium Current Visit: Yes Annotation/Comment:: Scheduled for swallow eval later this week (3) CHF (congestive heart failure) SNOMED Code(s): 46524577 Code(s): I50.9 - HEART FAILURE, UNSPECIFIED Status: Chronic Priority: Low Current Visit: Yes Annotation/Comment:: Elevated proBNP. Mild changes on chest xray suggestive of mild CHF however patient has not experienced any weight gain. Minimal rales on chest ascultation. IV Lasix ordered. Qualifiers: Heart failure type: unspecified Heart failure chronicity: chronic Qualified Code(s): I50.9 - Heart failure, unspecified (4) Atrial fibrillation SNOMED Code(s): 47891410 Code(s): I48.91 - UNSPECIFIED ATRIAL FIBRILLATION Status: Acute Priority: Low Current Visit: No Annotation/Comment:: Chronic/stable. Not anticoagulated. Qualifiers: Atrial fibrillation type: longstanding persistent Qualified Code(s): I48.11 - Longstanding persistent atrial fibrillation (5) Coronary artery disease SNOMED Code(s): 57949309 Code(s): I25.10 - ATHSCL HEART DISEASE OF [place] CORONARY ARTERY W/O ANG PCTRS Status: Chronic Priority: Medium Current Visit: No Annotation/Comment:: No Chest pain or anginal type symptoms. Qualifiers: Coronary Disease-Associated Artery/Lesion type: [place] artery [place] vs. transplanted heart: [place] heart Associated angina: without angina Qualified Code(s): I25.10 - Atherosclerotic heart disease of [place] coronary artery without angina pectoris (6) COPD (chronic obstructive pulmonary disease) SNOMED Code(s): 81050891 Code(s): J44.9 - CHRONIC OBSTRUCTIVE PULMONARY DISEASE, UNSPECIFIED Status: Acute Priority: Low Current Visit: No Annotation/Comment:: No recent changes noted other than recent intermittent hypoxemia attributed to current pneumonia. Qualifiers: COPD type: chronic bronchitis Chronic bronchitis type: simple Qualified Code(s): J41.0 - Simple chronic bronchitis (7) PVD (peripheral vascular disease) SNOMED Code(s): 983791932 Code(s): I73.9 - PERIPHERAL VASCULAR DISEASE, UNSPECIFIED Status: Chronic Priority: Low Current Visit: No (8) Sleep apnea SNOMED Code(s): 46218690 Code(s): G47.30 - SLEEP APNEA, UNSPECIFIED Status: Chronic Priority: Low Current Visit: No Qualifiers: Sleep apnea type: unspecified type Qualified Code(s): G47.30 - Sleep apnea, unspecified (9) Anxiety SNOMED Code(s): 78031904 Code(s): F41.9 - ANXIETY DISORDER, UNSPECIFIED Status: Chronic Priority: Low Current Visit: No Annotation/Comment:: Stable per history (10) Glaucoma SNOMED Code(s): 40696918 Code(s): H40.9 - UNSPECIFIED GLAUCOMA Status: Chronic Priority: Low Current Visit: No Qualifiers: Glaucoma type: unspecified (11) Chronic indwelling Blackman catheter SNOMED Code(s): 890997971 Code(s): Z97.8 - PRESENCE OF OTHER SPECIFIED DEVICES Status: Chronic Priority: Low Current Visit: No (12) Hypertension SNOMED Code(s): 69635112 Code(s): I10 - ESSENTIAL (PRIMARY) HYPERTENSION Status: Chronic Priority: Low Current Visit: No Annotation/Comment:: observe trends Qualifiers: Hypertension type: essential hypertension Qualified Code(s): I10 - Essential (primary) hypertension (13) Hyperlipidemia SNOMED Code(s): 76631009 Code(s): E78.5 - HYPERLIPIDEMIA, UNSPECIFIED Status: Chronic Priority: Low Current Visit: No Qualifiers: Hyperlipidemia type: mixed hyperlipidemia Qualified Code(s): E78.2 - Mixed hyperlipidemia (14) Weakness SNOMED Code(s): 92956217 Code(s): R53.1 - WEAKNESS Status: Chronic Priority: Low Current Visit: No - Problem List Review Problem List Initiated/Reviewed/Updated: Yes - My Orders Last 24 Hours: My Active Orders 01/17/20 16:49 CULTURE BLOOD [BC] Stat 01/17/20 16:53 Blood Culture x2 Reflex Set [OM.PC] Stat 01/17/20 16:55 CULTURE BLOOD [BC] Stat - Assessment/Plan Admission H&P: Please use this note as an admission H&P Last 24 Hours: My Active Orders 01/17/20 16:49 CULTURE BLOOD [BC] Stat 01/17/20 16:53 Blood Culture x2 Reflex Set [OM.PC] Stat 01/17/20 16:55 CULTURE BLOOD [BC] Stat Assessment:: as above. Plan: as above. to take over patient's care in AM
[2020-01-17] MEDS ORDERED: Loperamide 2 MG Tab PO PRN (19:10)
[2020-01-17] MEDS ORDERED: Azithromycin 500 MG in Sodium Chloride 0.9% 250 ML IV SCH (19:30)
[2020-01-17] MEDS: Furosemide 20 MG/2 ML VIAL IV SCH (20:17)
[2020-01-17] MEDS: Mometasone Furoate Powder 220 MCG/Puff 14 Dose Inhaler INH SCH (20:17)
[2020-01-17] MEDS: Clindamycin in 0.9 % Sod Chlor 600 MG in Premix Bag 1 BAG IV SCH ×2 (20:17)
[2020-01-17] MEDS: Metoprolol Tartrate 50 MG Tab PO SCH (20:18)
[2020-01-17] MEDS: Cholecalciferol (Vitamin D3) 25 MCG Tab PO SCH (20:18)
[2020-01-17] MEDS: Tiotropium Inhaler 18 MCG Inhalation Powder Cap Kit of 5 INH SCH (20:18)
[2020-01-17] MEDS: Albuterol/Ipratropium 3.0-0.5 MG/3 ML Neb Soln NEB SCH (20:20)
[2020-01-17] MEDS: Sodium Chloride 0.9% 10 ML Syringe FLUSH PRN (22:08)
[2020-01-17] MEDS: Polyvinyl Alcohol 1.4% Ophth Soln 15 ML Bottle EYEBOTH SCH (22:49)
[2020-01-18] MEDS: Clindamycin in 0.9 % Sod Chlor 600 MG in Premix Bag 1 BAG IV SCH ×6 (02:42→19:56)
[2020-01-18] MEDS: Albuterol/Ipratropium 3.0-0.5 MG/3 ML Neb Soln NEB SCH ×4 (02:44→19:56)
[2020-01-18] MEDS: Sodium Chloride 0.9% 10 ML Syringe FLUSH PRN ×7 (02:44→19:59)
[2020-01-18] MEDS ORDERED: POTASSIUM CHLORIDE PO SCH (08:00)
[2020-01-18] MEDS: Sertraline 50 MG Tab PO SCH (08:32)
[2020-01-18] MEDS: Cholecalciferol (Vitamin D3) 25 MCG Tab PO SCH ×3 (08:32→19:56)
[2020-01-18] MEDS: Potassium Chloride 10% 20 MEQ/15 ML Soln 15 ML UD Cup PO SCH (08:32)
[2020-01-18] MEDS: Metoprolol Tartrate 50 MG Tab PO SCH ×2 (08:32→19:55)
[2020-01-18] MEDS: Furosemide 20 MG/2 ML VIAL IV SCH ×2 (08:34→18:07)
[2020-01-18] MEDS: Lidocaine 4% 1 each Patch TOP SCH (08:39)
[2020-01-18] MEDS: Polyvinyl Alcohol 1.4% Ophth Soln 15 ML Bottle EYEBOTH SCH ×4 (08:40→19:57)
[2020-01-18 10:43] LABS: CHLORIDE,CL 104 mmol/L (98-107); SODIUM,NA 139 mmol/L (136-145)
[2020-01-18] MEDS: metroNIDAZOLE/Normal Saline 500 MG in Premix Bag 1 BAG IV SCH ×2 (11:21→18:06)
--- NOTE | 2020-01-18 11:51 | PCM.PN ---
- General Info Date of Service: 01/18/20 Admission Dx/Problem (Free Text): 1. Aspiration pneumonia 2. COPD 3. CHF 4. Atrial fibrillation Functional Status: Reports: Pain Controlled, Tolerating Diet, Ambulating, Urinating (Chronic Parsons catheter) - Review of Systems General: Denies: Fever, Weakness, Fatigue, Malaise, Chills, Night Sweats, Appetite (Good) HEENT: Reports: No Symptoms, Glasses, Other (Stable moderate to severe presb ycusis with patient not having his hearing aids). Denies: Dysphasia, Ear Pain, Eye Pain, Headaches, Post Nasal Drip, Sinus Congestion, Sore Throat, Rhinitis, Visual Changes Pulmonary: Reports: Cough. Denies: Shortness of Breath, Pleuritic Chest Pain, Sputum, Hemoptysis, Wheezing Cardiovascular: Reports: No Symptoms. Denies: Chest Pain, Palpitations, Dyspnea on Exertion, Orthopnea, Edema, Lightheadedness Gastrointestinal: Reports: Difficulty Swallowing (No dysphagia with no aspiration during hospitalization). Denies: Abdominal Pain, Constipation, Decreased Appetite, Diarrhea, Flatus, Hematochezia, Melena, Nausea, Vomiting Genitourinary: Reports: Incontinence, Retention, Other (Parsons catheter). Denies: Dysuria, Frequency, Burning, Pain, Urgency, Hematuria, Flank Pain Musculoskeletal: Reports: No Symptoms. Denies: Neck Pain, Shoulder Pain, Arm Pain, Back Pain, Leg Pain Skin: Reports: No Symptoms. Denies: Diaphoresis, Bruising Neurological: Reports: No Symptoms. Denies: Confusion, Paresthesia, Tingling Psychiatric: Reports: No Symptoms. Denies: Confusion, Depression, Anxiety, Agitation, Cravings, Hallucinations - Patient Data Vitals - Most Recent: Last Vital Signs Temp 36.2 C 01/18/20 11:44 Pulse 67 01/18/20 11:44 Resp 16 01/18/20 11:44 BP 100/60 01/18/20 11:44 Pulse Ox 93 L 01/18/20 11:44 Vital Signs - 24 hr 01/17/20 01/17/20 01/17/20 16:19 16:20 17:18 Temperature [ 36.8 C 36.8 C Temporal] Pulse, Peripheral Pulse, 93 82 89 Peripheral [ Left Pulse Oximetry] Respiratory 14 16 Rate Blood Pressure Blood Pressure 110/72 110/72 120/81 [Left Arm] O2 Sat by Pulse 94 L 93 L Oximetry 01/17/20 01/17/20 01/17/20 20:04 20:18 23:45 Temperature [ 36.9 C 36.2 C Temporal] Pulse, 76 Peripheral Pulse, 76 74 Peripheral [ Left Pulse Oximetry] Respiratory 21 H 16 Rate Blood Pressure 117/75 Blood Pressure 117/75 115/71 [Left Arm] O2 Sat by Pulse 93 L 86 L Oximetry 01/17/20 01/18/20 01/18/20 23:50 02:40 08:32 Temperature [ Temporal] Pulse, 75 Peripheral Pulse, Peripheral [ Left Pulse Oximetry] Respiratory Rate Blood Pressure 130/76 Blood Pressure [Left Arm] O2 Sat by Pulse 94 L 95 Oximetry 01/18/20 11:44 Temperature [ 36.2 C Temporal] Pulse, Peripheral Pulse, 67 Peripheral [ Left Pulse Oximetry] Respiratory 16 Rate Blood Pressure Blood Pressure 100/60 [Left Arm] O2 Sat by Pulse 93 L Oximetry Weight - Most Recent: 80.649 kg I&O - Last 24 Hours: Intake & Output 01/17/20 01/18/20 01/18/20 22:59 06:59 14:59 Intake Total 250 200 Output Total 350 850 Balance -100 -650 Imaging Impressions - Last 24 Hours: None Lab Results Last 24 Hours: Laboratory Results - last 24 hr 01/17/20 01/17/20 01/17/20 Range/Units 16:49 16:49 16:49 WBC 6.2 (4.0-10.2) K/uL RBC 4.13 L (4.33-5.41) M/uL Hgb 11.8 L (13.1-16.8) g/dL Hct 36.9 L (39.0-49.0) % MCV 89.3 (84.0-98.0) fL MCH 28.6 (28.2-33.3) pg MCHC 32.0 (31.7-36.0) g/dL RDW 16.2 H (11.2-14.1) % Plt Count 188 (150-350) K/uL Neut % (Auto) 83.4 H (45.0-80.0) % Lymph % (Auto) 9.2 L (10.0-50.0) % [place] % (Auto) 6.6 (2.0-14.0) % Eos % (Auto) 0.6 (0.0-5.0) % Baso % (Auto) 0.2 (0.0-2.0) % Neut # (Auto) 5.17 (1.40-7.00) K/uL Lymph # (Auto) 0.57 (0.50-3.50) K/uL Butler # (Auto) 0.41 (0.00-1.00) K/uL Eos # (Auto) 0.04 (0.00-0.50) K/uL Baso # (Auto) 0.01 (0.00-0.20) K/uL D-Dimer, Quantitative (0-400) ng/mL Sodium (136-145) mmol/L Potassium (3.5-5.1) mmol/L Chloride (98-107) mmol/L Carbon Dioxide (21.0-32.0) mmol/L BUN (7-18) mg/dL Creatinine (0.51-1.17) mg/dL Est Cr Clr Drug Dosing mL/min Estimated GFR (MDRD) mL/min Glucose (74-106) mg/dL Lactic Acid 1.6 (0.4-2.0) mmol/L Calcium (8.5-10.1) mg/dL Magnesium 2.0 (1.8-2.4) mg/dL Total Bilirubin (0.2-1.0) mg/dL AST (15-37) U/L ALT (12-78) U/L Alkaline Phosphatase (46-116) IU/L Creatine Kinase (26-308) U/L Creatine Kinase Index (0.0-2.5) % CK-MB (CK-2) (0.00-3.60) ng/mL Troponin I (0.000-0.056) ng/mL NT-Pro-B Natriuret Pep 2743 H (0-125) pg/mL Total Protein (6.4-8.2) g/dL Albumin (3.4-5.0) g/dL 01/17/20 01/18/20 01/18/20 Range/Units 16:49 10:10 10:10 WBC 5.6 (4.0-10.2) K/uL RBC 4.17 L (4.33-5.41) M/uL Hgb 11.9 L (13.1-16.8) g/dL Hct 37.4 L (39.0-49.0) % MCV 89.7 (84.0-98.0) fL MCH 28.5 (28.2-33.3) pg MCHC 31.8 (31.7-36.0) g/dL RDW 15.9 H (11.2-14.1) % Plt Count 161 (150-350) K/uL Neut % (Auto) 70.8 (45.0-80.0) % Lymph % (Auto) 15.5 (10.0-50.0) % [place] % (Auto) 8.5 (2.0-14.0) % Eos % (Auto) 4.3 (0.0-5.0) % Baso % (Auto) 0.9 (0.0-2.0) % Neut # (Auto) 3.98 (1.40-7.00) K/uL Lymph # (Auto) 0.87 (0.50-3.50) K/uL Butler # (Auto) 0.48 (0.00-1.00) K/uL Eos # (Auto) 0.24 (0.00-0.50) K/uL Baso # (Auto) 0.05 (0.00-0.20) K/uL D-Dimer, Quantitative (0-400) ng/mL Sodium 137 139 (136-145) mmol/L Potassium 4.9 4.0 (3.5-5.1) mmol/L Chloride 104 104 (98-107) mmol/L Carbon Dioxide 28.0 29.3 (21.0-32.0) mmol/L BUN 30 H 24 H (7-18) mg/dL Creatinine 0.71 0.66 (0.51-1.17) mg/dL Est Cr Clr Drug Dosing 71.12 76.50 mL/min Estimated GFR (MDRD) > 60 > 60 mL/min Glucose 189 H 140 H (74-106) mg/dL Lactic Acid (0.4-2.0) mmol/L Calcium 8.5 8.3 L (8.5-10.1) mg/dL Magnesium 2.0 (1.8-2.4) mg/dL Total Bilirubin 0.4 (0.2-1.0) mg/dL AST 12 L (15-37) U/L ALT 14 (12-78) U/L Alkaline Phosphatase 85 (46-116) IU/L Creatine Kinase 19 L (26-308) U/L Creatine Kinase Index 2.1 (0.0-2.5) % CK-MB (CK-2) 0.40 (0.00-3.60) ng/mL Troponin I 0.000 (0.000-0.056) ng/mL NT-Pro-B Natriuret Pep (0-125) pg/mL Total Protein 7.0 (6.4-8.2) g/dL Albumin 2.7 L (3.4-5.0) g/dL 01/18/20 Range/Units 10:10 WBC (4.0-10.2) K/uL RBC (4.33-5.41) M/uL Hgb (13.1-16.8) g/dL Hct (39.0-49.0) % MCV (84.0-98.0) fL MCH (28.2-33.3) pg MCHC (31.7-36.0) g/dL RDW (11.2-14.1) % Plt Count (150-350) K/uL Neut % (Auto) (45.0-80.0) % Lymph % (Auto) (10.0-50.0) % Butler % (Auto) (2.0-14.0) % Eos % (Auto) (0.0-5.0) % Baso % (Auto) (0.0-2.0) % Neut # (Auto) (1.40-7.00) K/uL Lymph # (Auto) (0.50-3.50) K/uL Butler # (Auto) (0.00-1.00) K/uL Eos # (Auto) (0.00-0.50) K/uL Baso # (Auto) (0.00-0.20) K/uL D-Dimer, Quantitative 1260 H (0-400) ng/mL Sodium (136-145) mmol/L Potassium (3.5-5.1) mmol/L Chloride (98-107) mmol/L Carbon Dioxide (21.0-32.0) mmol/L BUN (7-18) mg/dL Creatinine (0.51-1.17) mg/dL Est Cr Clr Drug Dosing mL/min Estimated GFR (MDRD) mL/min Glucose (74-106) mg/dL Lactic Acid (0.4-2.0) mmol/L Calcium (8.5-10.1) mg/dL Magnesium (1.8-2.4) mg/dL Total Bilirubin (0.2-1.0) mg/dL AST (15-37) U/L ALT (12-78) U/L Alkaline Phosphatase (46-116) IU/L Creatine Kinase (26-308) U/L Creatine Kinase Index (0.0-2.5) % CK-MB (CK-2) (0.00-3.60) ng/mL Troponin I (0.000-0.056) ng/mL NT-Pro-B Natriuret Pep (0-125) pg/mL Total Protein (6.4-8.2) g/dL Albumin (3.4-5.0) g/dL Jesus Results Last 24 Hours: None Med Orders - Current: Current Medications Acetaminophen (Tylenol Extra Strength) 1,000 mg PO Q6HR PRN PRN Reason: Pain Albuterol/Ipratropium (Duoneb 3.0-0.5 Mg/3 Ml) 3 ml NEB Q6HRRT [facility] Last Admin: 01/18/20 08:32 Dose: 3 ml Documented by: Artificial Tears (Liquitears 1.4% Ophth Soln) 0 ml EYEBOTH QID@,,,20 [facility] Last Admin: 01/18/20 11:28 Dose: 1 drop Documented by: Aspirin (Halfprin) 81 mg PO MoWeFr@0700 [facility] Cholecalciferol (Vitamin D3) 25 mcg PO TID@ [facility] Last Admin: 01/18/20 08:32 Dose: 25 mcg Documented by: Furosemide (Lasix) 20 mg IV BID [facility] Last Admin: 01/18/20 08:34 Dose: 20 mg Documented by: Clindamycin/Sodium Chloride (600 mg/ Premix) 50 mls @ 100 mls/hr IV Q8H [facility] Last Admin: 01/18/20 11:28 Dose: 100 mls/hr Documented by: Metronidazole 500 mg/ Premix 100 mls @ 100 mls/hr IV Q8H [facility] Last Admin: 01/18/20 11:21 Dose: 100 mls/hr Documented by: Lidocaine (Aspercreme 4%) 1 each TOP DAILY@0700 [facility] Last Admin: 01/18/20 08:39 Dose: 1 each Documented by: Loperamide HCl (Imodium Ad) 2 mg PO SEECOMMENT PRN PRN Reason: DIARRHEA Metoprolol Tartrate (Lopressor) 50 mg PO BID@07,1999 [facility] Last Admin: 01/18/20 08:32 Dose: 50 mg Documented by: Mometasone Furoate (Asmanex 220 Mcg) 1 puff INH BEDTIME [facility] Last Admin: 01/17/20 20:17 Dose: 1 puff Documented by: Potassium Chloride (Potassium Chloride Solution) 20 meq PO DAILY [facility] Last Admin: 01/18/20 08:32 Dose: 20 meq Documented by: Sertraline HCl (Zoloft) 50 mg PO DAILY@0700 [facility] Last Admin: 01/18/20 08:32 Dose: 50 mg Documented by: Sodium Chloride (Saline Flush) 10 ml FLUSH ASDIRECTED PRN PRN Reason: Keep Vein Open Last Admin: 01/18/20 11:28 Dose: 10 ml Documented by: Sodium Chloride (Saline Flush) 10 ml FLUSH ASDIRECTED PRN PRN Reason: Keep Vein Open Tiotropium [place] (Spiriva Handihaler) 18 mcg INH BEDTIME [facility] Last Admin: 01/17/20 20:18 Dose: 1 inh Documented by: Discontinued Medications Azithromycin 500 mg/ Sodium (Chloride) 250 mls @ 250 mls/hr IV Q24H [facility] Last Admin: 01/17/20 21:56 Dose: 250 mls/hr Documented by: Non-Formulary Medication (Potassium Chloride) 15 ml PO DAILY VINCE - Exam Quality Assessment: DVT Prophylaxis. No: Supplemental Oxygen, Central Line/PICC, Urine Catheter, Skin Breakdown, Restraints General: Alert, Oriented, Cooperative, No Acute Distress HEENT: Pupils Equal, Pupils Reactive, EOMI, Mucous Membr. Moist/[place]. No: Scleral Icterus Neck: Supple, Trachea Midline, No JVD, No Thyromegaly, Carotid Bruit (Mild bilateral carotid bruits). No: Lymphadenopathy Lungs: Normal Respiratory Effort, Rales (Bilateral basilarmild). No: Rhonchi, Rub, Wheezing Cardiovascular: Regular Rate, No Murmurs, Irregular Rhythm. No: Gallops, Rubs GI/Abdominal Exam: Normal Bowel Sounds, Soft, Non-Tender, No Organomegaly, No Distention, No Abnormal Bruit, No Mass. No: Guarding (Male) Exam: Deferred, Other (Parsons catheter) Back Exam: Normal Inspection, Full Range of Motion. No: CVA Tenderness (L), CVA Tenderness (R), Muscle Spasm Extremities: Normal Range of Motion, Non-Tender, No Pedal Edema, Normal Capillary Refill, Other (Severe bilateral varicose veins on the left leg with moderate to severe bilateral venous stasis dermatitis with no evidence of acute infection). No: Adelia's Sign Peripheral Pulses: 2+: Radial (L), Radial (R), Dorsalis Pedis (L), Dorsalis Pedis (R) Skin: Warm, Dry, Other (As above) Neurological: No New Focal Deficit Psy/Mental Status: Alert, Normal Affect, Normal Mood. No: Agitated, Hallucinations EKG INTERPRETATION EKG Date: 01/18/20 Time: 10:42 Rhythm: A-Fib Rate (Beats/Min): 69 [place]: Normal (Left) P-Wave: Variable QRS: Normal (0.09 seconds representing repolarization changes) ST-T: Normal QT: Normal MS/PQ Interval: Variable Comparison: NA - No Prior EKG EKG Interpretation Comments: 1. No acute ischemic changes 2. Atrial fibrillation 3. PVC Sepsis Event Note - Evaluation Sepsis Screening Result: No Definite Risk - Focused Exam Vital Signs: Vital Signs Temp Pulse Pulse Resp BP BP Pulse Ox 01/18/20 11:44 36.2 C 67 16 100/60 93 L 01/18/20 08:32 75 130/76 01/18/20 02:40 95 Date Exam was Performed: 01/18/20 Time Exam was Performed: 12:09 - Problem List & Annotations (1) Pneumonia SNOMED Code(s): 290774066 Code(s): J18.9 - PNEUMONIA, UNSPECIFIED ORGANISM Status: Acute Priority: High Current Visit: Yes Onset Date: 07/19/19 Qualifiers: Pneumonia type: aspiration pneumonia Aspiration pneumonia type: unspecified Laterality: right Lung location: lower lobe of lung Qualified Code(s): J69.0 - Pneumonitis due to inhalation of food and vomit Annotation/Comment:: Right lower lobe pneumonia. Worsened over last few days despite three days of Zithromax and Rocephin. May have aspiration component. Mild intermittent hypoxemia. IV Zithromax was continued during the initial 24 hours of hospitalization, however this was subsequently discontinued on 01/17 and changed to IV Flagyl therapy with previous IV Rocephin changed to IV Clindamycin on admission. Continue to attempt to obtain a sputum specimen for culture and sensitivity. (2) CHF (congestive heart failure) SNOMED Code(s): 84886458 Code(s): I50.9 - HEART FAILURE, UNSPECIFIED Status: Chronic Priority: High Current Visit: Yes Qualifiers: Heart failure type: unspecified Heart failure chronicity: chronic Qualified Code(s): I50.9 - Heart failure, unspecified Annotation/Comment:: Significantly elevated proBNP on admission with no chest pain or anginal type symptoms. Mild changes on chest xray suggestive of mild CHF however patient has not experienced any weight gain with minimal rales on admission. Low-dose IV Lasix ordered on admission with otherwise negative cardiac enzymes and EKG to this point. Note comfort care with no additional echocardiogram, etc. at this time. (3) Dysphagia SNOMED Code(s): 81878431, 934597780 Code(s): R13.10 - DYSPHAGIA, UNSPECIFIED Status: Chronic Priority: Medium Current Visit: Yes Qualifiers: Dysphagia type: unspecified Qualified Code(s): R13.10 - Dysphagia, unspecified Annotation/Comment:: As above. Aspiration precautions initiated. (4) Atrial fibrillation SNOMED Code(s): 67847451 Code(s): I48.91 - UNSPECIFIED ATRIAL FIBRILLATION Status: Acute Priority: Medium Current Visit: Yes Qualifiers: Atrial fibrillation type: longstanding persistent Qualified Code(s): I48.11 - Longstanding persistent atrial fibrillation Annotation/Comment:: Chronic/stable. Not anticoagulated secondary to comfort care and risk factors. (5) COPD (chronic obstructive pulmonary disease) SNOMED Code(s): 88917630 Code(s): J44.9 - CHRONIC OBSTRUCTIVE PULMONARY DISEASE, UNSPECIFIED Status: Acute Priority: High Current Visit: Yes Qualifiers: COPD type: chronic bronchitis Chronic bronchitis type: simple Qualified Code(s): J41.0 - Simple chronic bronchitis Annotation/Comment:: Otherwise stable by history with aspiration pneumonia as above. (6) PVCs (premature ventricular contractions) SNOMED Code(s): 88306937 Code(s): I49.3 - VENTRICULAR PREMATURE DEPOLARIZATION Status: Acute Priority: High Current Visit: Yes Onset Date: 07/10/19 Annota tion/Comment:: Observe for now. (7) Coronary artery disease SNOMED Code(s): 55791634 Code(s): I25.10 - ATHSCL HEART DISEASE OF [place] CORONARY ARTERY W/O ANG PCTRS Status: Chronic Priority: High Current Visit: Yes Qualifiers: Coronary Disease-Associated Artery/Lesion type: bypass graft [place] vs. 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 (8) Hypertension SNOMED Code(s): 73904637 Code(s): I10 - ESSENTIAL (PRIMARY) HYPERTENSION Status: Chronic Priority: Medium Current Visit: Yes Qualifiers: Hypertension type: essential hypertension Qualified Code(s): I10 - Essential (primary) hypertension Annotation/Comment:: Stable during this hospitalization. (9) Anemia SNOMED Code(s): 534491470 Code(s): D64.9 - ANEMIA, UNSPECIFIED Status: Acute Priority: Medium Cu rrent Visit: Yes Onset Date: 01/18/20 Qualifiers: Anemia type: unspecified type Qualified Code(s): D64.9 - Anemia, unspecified Annotation/Comment:: No evidence of acute GI bleed. Vitamin B-12 level, TIBC panel, and ferritin level on 01/18. (10) Need for comfort care SNOMED Code(s): 921978193, 626756886 Code(s): XDW9377 - Status: Chronic Priority: High Current Visit: Yes Annotation/Comment:: Confirmed on admission. (11) Hypoalbuminemia SNOMED Code(s): 352953207 Code(s): E88.09 - OTH DISORDERS OF PLASMA-PROTEIN METABOLISM, NEC Status: Acute Priority: Medium Current Visit: Yes Onset Date: 01/18/20 Annotation/Comment:: Observe for now. Consider high-protein Glucerna supplements as snacks. - Problem List Review Problem List Initiated/Reviewed/Updated: Yes - My Orders Last 24 Hours: My Active Orders 01/18/20 09:44 EKG Documentation Completion [RC] ASDIRECTED 01/18/20 09:54 CHF Questionnaire [COMM] Routine 01/18/20 10:00 metroNIDAZOLE/Normal Saline [Flagyl 500 MG in NS 100 ML] 500 mg Premix Bag 1 bag IV Q8H 01/18/20 Lunch Fluid Restriction [DIET] 01/19/20 05:11 EKG Documentation Completion [RC] ASDIRECTED Chest 1V Frontal [CR] Routine CBC WITH AUTO DIFF [HEME] Routine CK W CKMB [CHEM] Routine COMPREHENSIVE METABOLIC PN,CMP [CHEM] Routine FERRITIN [CHEM] Routine IRON/TIBC [CHEM] Routine PRO B-TYPE NATRIUR PEPT,BNPPRO [CHEM] Routine TROPONIN I [CHEM] Routine VITAMIN B12 [CHEM] Routine EKG 12 Lead [EK] Routine - Assessment Assessment:: As above - Plan Plan:: As above. Extensive precautions were given to the patient, who is in agreement with the treatment plan. The patient will require about 2-3 days of inpatient/acute care secondary to multiple health problems as above.
[2020-01-18] MEDS: Dextromethorphan/guaiFENesin 600-30 MG Tab.ER PO SCH (18:06)
[2020-01-18] MEDS: Tiotropium Inhaler 18 MCG Inhalation Powder Cap Kit of 5 INH SCH (19:53)
[2020-01-18] MEDS: Mometasone Furoate Powder 220 MCG/Puff 14 Dose Inhaler INH SCH (19:54)
[2020-01-18] MEDS: Magnesium Hydroxide 400 MG/5 ML Susp 30 ML Cup PO PRN (19:55)
[2020-01-19] MEDS: Albuterol/Ipratropium 3.0-0.5 MG/3 ML Neb Soln NEB SCH ×4 (02:28→19:45)
[2020-01-19] MEDS: metroNIDAZOLE/Normal Saline 500 MG in Premix Bag 1 BAG IV SCH ×3 (02:28→17:24)
[2020-01-19] MEDS: Clindamycin in 0.9 % Sod Chlor 600 MG in Premix Bag 1 BAG IV SCH ×6 (04:03→19:37)
[2020-01-19] MEDS: Lidocaine 4% 1 each Patch TOP SCH (08:26)
[2020-01-19 08:27] LABS: CHLORIDE,CL 102 mmol/L (98-107); SODIUM,NA 141 mmol/L (136-145)
[2020-01-19] MEDS: Potassium Chloride 10% 20 MEQ/15 ML Soln 15 ML UD Cup PO SCH (08:27)
[2020-01-19] MEDS: Polyvinyl Alcohol 1.4% Ophth Soln 15 ML Bottle EYEBOTH SCH ×4 (08:28→19:45)
[2020-01-19] MEDS: Magnesium Hydroxide 400 MG/5 ML Susp 30 ML Cup PO PRN (08:28)
[2020-01-19] MEDS: Aspirin 81 MG Tab.EC PO SCH (08:29)
[2020-01-19] MEDS: Dextromethorphan/guaiFENesin 600-30 MG Tab.ER PO SCH ×2 (08:30→17:24)
[2020-01-19] MEDS: Furosemide 20 MG/2 ML VIAL IV SCH (08:30)
[2020-01-19] MEDS: Cholecalciferol (Vitamin D3) 25 MCG Tab PO SCH ×3 (08:30→19:47)
[2020-01-19] MEDS: Metoprolol Tartrate 50 MG Tab PO SCH ×2 (08:30→19:56)
[2020-01-19] MEDS: Sertraline 50 MG Tab PO SCH (08:30)
[2020-01-19] MEDS: Sodium Chloride 0.9% 10 ML Syringe FLUSH PRN ×6 (08:36→19:44)
[2020-01-19] MEDS ORDERED: Polyethylene Glycol 3350 Powder 17 GM Packet PO ONE (11:58)
--- NOTE | 2020-01-19 11:58 | PCM.PN ---
- General Info Date of Service: 01/19/20 Admission Dx/Problem (Free Text): 1. Aspiration pneumonia 2. COPD 3. CHF 4. Atrial fibrillation Functional Status: Reports: Pain Controlled, Tolerating Diet, Ambulating, Urinating (Suprapubic catheter), Incentive Spirometry. Denies: New Symptoms Pain Score: 0 - Review of Systems General: Reports: Weakness (Mild generalized). Denies: Fever, Fatigue, Malaise, Chills, Night Sweats, Appetite (Good) HEENT: Reports: Glasses, Other (Stable severe bilateral presbycusis with patient not having his hearing aids.). Denies: Dysphasia, Ear Pain, Eye Pain, Headaches, Post Nasal Drip, Sinus Congestion, Sore Throat, Rhinitis, Visual Changes Pulmonary: Reports: Shortness of Breath (Slowly improving), Cough (Mild), Sputum (Yellowish). Denies: Pleuritic Chest Pain, Hemoptysis, Wheezing Cardiovascular: Reports: No Symptoms, Dyspnea on Exertion. Denies: Chest Pain, Palpitations, Orthopnea, PND, Edema, Lightheadedness Gastrointestinal: Reports: Constipation (No bowel movement since admission). Denies: Abdominal Pain, Decreased Appetite, Diarrhea, Difficulty Swallowing, Flatus, Hematochezia, Melena, Nausea, Vomiting Genitourinary: Reports: Incontinence, Retention, Other (Suprapubic catheter). Denies: Dysuria, Frequency, Burning, Pain, Urgency, Hematuria, Flank Pain Musculoskeletal: Reports: Shoulder Pain (Chronic stable nonspecific bilateral shoulder pain left greater than right). Denies: Neck Pain, Arm Pain, Back Pain, Leg Pain Skin: Denies: Diaphoresis, Bruising, Rash Neurological: Reports: Weakness (As above). Denies: Confusion - Patient Data Vitals - Most Recent: Last Vital Signs Temp 36.9 C 01/19/20 08:00 Pulse 71 01/19/20 08:30 Resp 20 01/19/20 08:00 BP 114/66 01/19/20 08:30 Pulse Ox 91 L 01/19/20 08:00 Vital Signs - 24 hr 01/18/20 01/18/20 01/19/20 16:00 19:55 00:00 Temperature [ Oral] Temperature [ 36.6 C 36.7 C Temporal] Pulse, 75 Peripheral Pulse, 85 81 Peripheral [ Left Pulse Oximetry] Respiratory 20 16 Rate Blood Pressure 130/76 Blood Pressure 104/60 139/78 [Left Arm] O2 Sat by Pulse 92 L 96 Oximetry 01/19/20 01/19/20 08:00 08:30 Temperature [ 36.9 C Oral] Temperature [ Temporal] Pulse, 71 Peripheral Pulse, 77 Peripheral [ Left Pulse Oximetry] Respiratory 20 Rate Blood Pressure 114/66 Blood Pressure [Left Arm] O2 Sat by Pulse 91 L Oximetry Weight - Most Recent: 75.251 kg I&O - Last 24 Hours: Intake & Output 01/18/20 01/19/20 01/19/20 22:59 06:59 14:59 Intake Total 440 420 Output Total 1325 300 575 Balance -296 -105 -721 Imaging Impressions - Last 24 Hours: Chest x-ray, PA and lateral, shows status post medial sternotomy with moderate COPD and pulmonary fibrotic changes, including moderate bilateral pulmonary infiltrates with right pleural effusion versus right lower lobe consolidation. Findings consistent with concomitant CHF and pneumonia. No pneumothorax. Note multiple abdominal surgical clips. Moderate cardiomegaly. Lab Results Last 24 Hours: Laboratory Results - last 24 hr 01/19/20 01/19/20 01/19/20 Range/Units 07:25 07:25 07:25 WBC 7.5 (4.0-10.2) K/uL RBC 4.44 (4.33-5.41) M/uL Hgb 12.7 L (13.1-16.8) g/dL Hct 39.3 (39.0-49.0) % MCV 88.5 (84.0-98.0) fL MCH 28.6 (28.2-33.3) pg MCHC 32.3 (31.7-36.0) g/dL RDW 15.7 H (11.2-14.1) % Plt Count 202 (150-350) K/uL Neut % (Auto) 74.9 (45.0-80.0) % Lymph % (Auto) 11.5 (10.0-50.0) % [place] % (Auto) 7.6 (2.0-14.0) % Eos % (Auto) 5.6 H (0.0-5.0) % Baso % (Auto) 0.4 (0.0-2.0) % Neut # (Auto) 5.62 (1.40-7.00) K/uL Lymph # (Auto) 0.86 (0.50-3.50) K/uL [place] # (Auto) 0.57 (0.00-1.00) K/uL Eos # (Auto) 0.42 (0.00-0.50) K/uL Baso # (Auto) 0.03 (0.00-0.20) K/uL Sodium 141 (136-145) mmol/L Potassium 4.2 (3.5-5.1) mmol/L Chloride 102 (98-107) mmol/L Carbon Dioxide 31.2 (21.0-32.0) mmol/L BUN 24 H (7-18) mg/dL Creatinine 0.65 (0.51-1.17) mg/dL Est Cr Clr Drug Dosing 77.68 mL/min Estimated GFR (MDRD) > 60 mL/min Glucose 105 (74-106) mg/dL Calcium 8.1 L (8.5-10.1) mg/dL Iron 32 L (50-175) ug/dL TIBC 273 (250-450) ug/dL % Saturation 11.63756 Ferritin 257 (8-388) ng/mL Total Bilirubin 0.5 (0.2-1.0) mg/dL AST 17 (15-37) U/L ALT 17 (12-78) U/L Alkaline Phosphatase 78 (46-116) IU/L Creatine Kinase 13 L (26-308) U/L Creatine Kinase Index 3.1 H (0.0-2.5) % CK-MB (CK-2) 0.40 (0.00-3.60) ng/mL Troponin I 0.000 (0.000-0.056) ng/mL NT-Pro-B Natriuret Pep 1386 H (0-125) pg/mL Total Protein 6.6 (6.4-8.2) g/dL Albumin 2.4 L (3.4-5.0) g/dL Vitamin B12 437 (193-986) pg/mL Specimen Type Urine Color Urine Appearance Urine pH (5.0-9.0) Ur Specific [place] (1.005-1.030) Urine Protein (NEGATIVE) mg/dL Urine Glucose (UA) (NEGATIVE) mg/dL Urine Ketones (NEGATIVE) mg/dL Urine Occult Blood (NEGATIVE) Urine Nitrite (NEGATIVE) Urine Bilirubin (NEGATIVE) Urine Urobilinogen (0.2-1.0) E.U./dL Ur Leukocyte Esterase (NEGATIVE) Urine RBC /HPF Urine WBC /HPF Ur Epithelial Cells /LPF Urine Bacteria (NONE TO FEW) /HPF 01/19/20 Range/Units 10:00 WBC (4.0-10.2) K/uL RBC (4.33-5.41) M/uL Hgb (13.1-16.8) g/dL Hct (39.0-49.0) % MCV (84.0-98.0) fL MCH (28.2-33.3) pg MCHC (31.7-36.0) g/dL RDW (11.2-14.1) % Plt Count (150-350) K/uL Neut % (Auto) (45.0-80.0) % Lymph % (Auto) (10.0-50.0) % [place] % (Auto) (2.0-14.0) % Eos % (Auto) (0.0-5.0) % Baso % (Auto) (0.0-2.0) % Neut # (Auto) (1.40-7.00) K/uL Lymph # (Auto) (0.50-3.50) K/uL [place] # (Auto) (0.00-1.00) K/uL Eos # (Auto) (0.00-0.50) K/uL Baso # (Auto) (0.00-0.20) K/uL Sodium (136-145) mmol/L Potassium (3.5-5.1) mmol/L Chloride (98-107) mmol/L Carbon Dioxide (21.0-32.0) mmol/L BUN (7-18) mg/dL Creatinine (0.51-1.17) mg/dL Est Cr Clr Drug Dosing mL/min Estimated GFR (MDRD) mL/min Glucose (74-106) mg/dL Calcium (8.5-10.1) mg/dL Iron (50-175) ug/dL TIBC (250-450) ug/dL % Saturation Ferritin (8-388) ng/mL Total Bilirubin (0.2-1.0) mg/dL AST (15-37) U/L ALT (12-78) U/L Alkaline Phosphatase (46-116) IU/L Creatine Kinase (26-308) U/L Creatine Kinase Index (0.0-2.5) % CK-MB (CK-2) (0.00-3.60) ng/mL Troponin I (0.000-0.056) ng/mL NT-Pro-B Natriuret Pep (0-125) pg/mL Total Protein (6.4-8.2) g/dL Albumin (3.4-5.0) g/dL Vitamin B12 (193-986) pg/mL Specimen Type Urinsp Urine Color Light yellow Urine Appearance Clear Urine pH 7.0 (5.0-9.0) Ur Specific [place] 1.020 (1.005-1.030) Urine Protein Negative (NEGATIVE) mg/dL Urine Glucose (UA) Negative (NEGATIVE) mg/dL Urine Ketones Negative (NEGATIVE) mg/dL Urine Occult Blood Trace-intact H (NEGATIVE) Urine Nitrite Negative (NEGATIVE) Urine Bilirubin Negative (NEGATIVE) Urine Urobilinogen 0.2 (0.2-1.0) E.U./dL Ur Leukocyte Esterase Small H (NEGATIVE) Urine RBC 0-5 /HPF Urine WBC 0-5 /HPF Ur Epithelial Cells Occasional /LPF Urine Bacteria Occasional (NONE TO FEW) /HPF Jesus Results Last 24 Hours: Microbiology 01/17/20 16:49 Aerobic Blood Culture - Preliminary Blood - Venous Gram Negative Rods Anaerobic Blood Culture - Preliminary NO GROWTH AFTER 1 DAY 01/17/20 16:55 Aerobic Blood Culture - Preliminary Blood - Venous - Lab Draw NO GROWTH AFTER 1 DAY Anaerobic Blood Culture - Preliminary NO GROWTH AFTER 1 DAY Med Orders - Current: Current Medications Acetaminophen (Tylenol Extra Strength) 1,000 mg PO Q6HR PRN PRN Reason: Pain Albuterol/Ipratropium (Duoneb 3.0-0.5 Mg/3 Ml) 3 ml NEB Q6HRRT [facility] Last Admin: 01/19/20 08:29 Dose: 3 ml Documented by: Artificial Tears (Liquitears 1.4% Ophth Soln) 0 ml EYEBOTH QID@07,12,16,20 [facility] Last Admin: 01/19/20 11:53 Dose: 2 drop Documented by: Aspirin (Halfprin) 81 mg PO MoWeFr@0700 [facility] Last Admin: 01/19/20 08:29 Dose: 81 mg Documented by: Cholecalciferol (Vitamin D3) 25 mcg PO TID@07,16, [facility] Last Admin: 01/19/20 08:30 Dose: 25 mcg Documented by: Furosemide (Lasix) 20 mg IV BID [facility] Last Admin: 01/19/20 08:30 Dose: 20 mg Documented by: Guaifenesin/Dextromethorphan (Mucinex Dm Er 600-30 Mg) 1 tab PO BID [facility] Last Admin: 01/19/20 08:30 Dose: 1 tab Documented by: Clindamycin/Sodium Chloride (600 mg/ Premix) 50 mls @ 100 mls/hr IV Q8H [facility] Last Admin: 01/19/20 11:53 Dose: 100 mls/hr Documented by: Metronidazole 500 mg/ Premix 100 mls @ 100 mls/hr IV Q8H [facility] Last Admin: 01/19/20 09:40 Dose: 100 mls/hr Documented by: Lidocaine (Aspercreme 4%) 1 each TOP DAILY@07 [facility] Last Admin: 01/19/20 08:26 Dose: 1 each Documented by: Loperamide HCl (Imodium Ad) 2 mg PO SEECOMMENT PRN PRN Reason: DIARRHEA Magnesium Hydroxide (Milk Of Magnesia) 30 ml PO DAILY PRN PRN Reason: Constipation Last Admin: 01/19/20 08:28 Dose: 30 ml Documented by: Metoprolol Tartrate (Lopressor) 50 mg PO BID@699,1999 [facility] Last Admin: 01/19/20 08:30 Dose: 50 mg Documented by: Mometasone Furoate (Asmanex 220 Mcg) 1 puff INH BEDTIME [facility] Last Admin: 01/18/20 19:54 Dose: 1 puff Documented by: Potassium Chloride (Potassium Chloride Solution) 20 meq PO DAILY [facility] Last Admin: 01/19/20 08:27 Dose: 20 meq Documented by: Sertraline HCl (Zoloft) 50 mg PO DAILY@0700 [facility] Last Admin: 01/19/20 08:30 Dose: 50 mg Documented by: Sodium Chloride (Saline Flush) 10 ml FLUSH ASDIRECTED PRN PRN Reason: Keep Vein Open Last Admin: 01/19/20 11:55 Dose: 10 ml Documented by: Sodium Chloride (Saline Flush) 10 ml FLUSH ASDIRECTED PRN PRN Reason: Keep Vein Open Last Admin: 01/18/20 18:07 Dose: 10 ml Documented by: Tiotropium [place] (Spiriva Handihaler) 18 mcg INH BEDTIME [facility] Last Admin: 01/18/20 19:53 Dose: 1 inh Documented by: Discontinued Medications Azithromycin 500 mg/ Sodium (Chloride) 250 mls @ 250 mls/hr IV Q24H [facility] Last Admin: 01/17/20 21:56 Dose: 250 mls/hr Documented by: Non-Formulary Medication (Potassium Chloride) 15 ml PO DAILY VINCE - Exam Quality Assessment: DVT Prophylaxis. No: Supplemental Oxygen, Urine Catheter, Skin Breakdown, Restraints General: Alert, Oriented, Cooperative, No Acute Distress HEENT: Pupils Equal, Pupils Reactive, EOMI, Mucous Membr. Moist/[place]. No: Scleral Icterus Neck: Supple, Trachea Midline, No JVD, No Thyromegaly, Carotid Bruit (Mild bilateral carotid bruits). No: Lymphadenopathy Lungs: Normal Respiratory Effort, Rales (Mild to moderate diffuse bilateral). No: Rhonchi, Rub, Wheezing Cardiovascular: Regular Rate, No Murmurs, Irregular Rhythm. No: Gallops, Rubs GI/Abdominal Exam: Normal Bowel Sounds, Soft, Non-Tender, No Organomegaly, No Distention, No Abnormal Bruit, No Mass, Other (Obese). No: Guarding (Male) Exam: Deferred Back Exam: Normal Inspection, Full Range of Motion. No: CVA Tenderness (L), CVA Tenderness (R), Muscle Spasm Extremities: Normal Range of Motion, Non-Tender, Normal Capillary Refill, Pedal Edema (Trace bilateral pedal/pretibial edema with moderate to severe bilateral venous stasis dermatitis and varicose veins of the lower extremities ) Peripheral Pulses: 2+: Radial (L), Radial (R), Dorsalis Pedis (L), Dorsalis Pedis (R) Skin: Other (As above) Neurological: No New Focal Deficit Psy/Mental Status: Alert, Normal Affect, Normal Mood. No: Agitated, Hallucinations, Withdrawal Symptoms EKG INTERPRETATION EKG Date: 01/19/20 Time: 12:17 Rhythm: A-Fib (With resolution of previous PVCs) Rate (Beats/Min): 77 [place]: Normal (Left cardiac axis) P-Wave: Variable QRS: Wide (0.10 seconds representing repolarization changes. Left ventricular hypertrophy by voltage) ST-T: Normal QT: Normal DC/PQ Interval: Variable extreme poor R-wave progression in the anterior leads Comparison: Change From Previous EKG (As above) EKG Interpretation Comments: 1. No acute ischemic changes 2. Atrial fibrillation with previous PVCs Sepsis Event Note - Evaluation Sepsis Screening Result: No Definite Risk - Focused Exam Vital Signs: Vital Signs Temp Temp Pulse Pulse Resp BP BP 01/19/20 08:30 71 114/66 01/19/20 08:00 36.9 C 77 20 01/19/20 00:00 36.7 C 81 16 139/78 Pulse Ox 01/19/20 08:30 01/19/20 08:00 91 L 01/19/20 00:00 96 Date Exam was Performed: 01/19/20 Time Exam was Performed: 12:20 - Problem List & Annotations (1) Pneumonia SNOMED Code(s): 266613447 Code(s): J18.9 - PNEUMONIA, UNSPECIFIED ORGANISM Status: Acute Priority: High Current Visit: Yes Onset Date: 07/19/19 Qualifiers: Pneumonia type: aspiration pneumonia Aspiration pneumonia type: unspecified Laterality: right Lung location: lower lobe of lung Qualified Code(s): J69.0 - Pneumonitis due to inhalation of food and vomit Annotation/Comment:: Patient is still afebrile with no leukocytosis however worsening chest x-ray today as above. Positive blood culture 1 for gram- negative rods with UA and culture and sensitivity from suprapubic catheter ordered. Right lower lobe pneumonia initially with probable bilateral pneumonia at this time. Note probable CHF component. Previous worsening of patient's symptoms prior to admission despite three days of Zithromax and Rocephin. May have aspiration component. Mild intermittent hypoxemia. IV Zithromax was continued during the initial 24 hours of hospitalization, however this was subsequently discontinued on 01/17 and changed to IV Flagyl therapy with previous Rocephin changed to IV Clindamycin on admission. Continue to attempt to obtain a sputum specimen for culture and sensitivity. (2) CHF (congestive heart failure) SNOMED Code(s): 70343239 Code(s): I50.9 - HEART FAILURE, UNSPECIFIED Status: Chronic Priority: High Current Visit: Yes Qualifiers: Heart failure type: unspecified Heart failure chronicity: chronic Qualified Code(s): I50.9 - Heart failure, unspecified Annotation/Comment:: Significantly elevated proBNP on admission with no chest pain or anginal type symptoms. Progressive changes on chest xray on 01/18 suggestive of mild CHF, however improved BNP. Note that the patient had not experienced any weight gain prior to admission. Low-dose IV Lasix ordered on admission with IV Lasix therapy increased on 01/18. Otherwise negative cardiac enzymes and EKG to this point. Note comfort care with no additional echocardiogram, etc. at this time. (3) Dysphagia SNOMED Code(s): 78262012, 257872947 Code(s): R13.10 - DYSPHAGIA, UNSPECIFIED Status: Chronic Priority: Medium Current Visit: Yes Qualifiers: Dysphagia type: unspecified Qualified Code(s): R13.10 - Dysphagia, unspecified Annotation/Comment:: As above. Aspiration precautions initiated. (4) Atrial fibrillation SNOMED Code(s): 59574380 Code(s): I48.91 - UNSPECIFIED ATRIAL FIBRILLATION Status: Acute Priority: Medium Current Visit: Yes Qualifiers: Atrial fibrillation type: longstanding persistent Qualified Code(s): I48.11 - Longstanding persistent atrial fibrillation Annotation/Comment:: Chronic/stable. Not anticoagulated secondary to comfort care and risk factors. (5) COPD (chronic obstructive pulmonary disease) SNOMED Code(s): 01661056 Code(s): J44.9 - CHRONIC OBSTRUCTIVE PULMONARY DISEASE, UNSPECIFIED Status: Acute Priority: High Current Visit: Yes Qualifiers: COPD type: chronic bronchitis Chronic bronchitis type: simple Qualified Code(s): J41.0 - Simple chronic bronchitis Annotation/Comment:: Otherwise stable by history with aspiration pneumonia as above. (6) PVCs (premature ventricular contractions) SNOMED Code(s): 77605900 Code(s): I49.3 - VENTRICULAR PREMATURE DEPOLARIZATION Status: Acute Priority: High Current Visit: Yes Onset Date: 07/10/19 Annotation/Comment:: Observe for now. (7) Coronary artery disease SNOMED Code(s): 61054017 Code(s): I25.10 - ATHSCL HEART DISEASE OF [place] CORONARY ARTERY W/O ANG PCTRS Status: Chronic Priority: High Current Visit: Yes Qualifiers: Coronary Disease-Associated Artery/Lesion type: bypass graft [place] vs. transplanted heart: [place] heart Associated angina: without angina Qualified Code(s): I25.810 - Atherosclerosis of coronary artery bypass graft(s) without angina pectoris Annotation/Comment:: As above. (8) Hypertension SNOMED Code(s): 82053427 Code(s): I10 - ESSENTIAL (PRIMARY) HYPERTENSION Status: Chronic Priority: Medium Current Visit: Yes Qualifiers: Hypertension type: essential hypertension Qualified Code(s): I10 - Essential (primary) hypertension Annotation/Comment:: Stable during this hospitalization. (9) Anemia SNOMED Code(s): 712138700 Code(s): D64.9 - ANEMIA, UNSPECIFIED Status: Acute Priority: Medium Current Visit: Yes Onset Date: 01/18/20 Qualifiers: Anemia type: unspecified type Qualified Code(s): D64.9 - Anemia, unspecified Annotation/Comment:: No evidence of acute GI bleed. Vitamin B-12 level and ferritin level were normal on 01/18. Note mildly decreased iron level however concomitant hypoalbuminemia. Observe for now. Improved hemoglobin on 01/18. (10) Need for comfort care SNOMED Code(s): 444263375, 363940320 Code(s): FOE2049 - Status: Chronic Priority: High Current Visit: Yes Annotation/Comment:: Confirmed on admission. (11) Hypoalbuminemia SNOMED Code(s): 031755705 Code(s): E88.09 - OTH DISORDERS OF PLASMA-PROTEIN METABOLISM, NEC Status: Acute Priority: Medium Current Visit: Yes Onset Date: 01/18/20 Annotation/Comment:: Observe for now. Consider high-protein Glucerna supplements as snacks. - Problem List Review Problem List Initiated/Reviewed/Updated: Yes - My Orders Last 24 Hours: My Active Orders 01/18/20 Lunch Fluid Restriction [DIET] 01/18/20 11:52 Comfort Measures [OM.PC] Routine 01/18/20 11:53 RT Incentive Spirometry [RC] 01/18/20 12:54 CORONAVIRUS COVID-19 PCR PHL Stat 01/18/20 18:00 Dextromethorphan/guaiFENesin [Mucinex DM ER 600-30 MG] 1 tab PO BID 01/18/20 18:55 Magnesium Hydroxide [Milk of Magnesia] 30 ml PO DAILY PRN 01/19/20 05:11 EKG Documentation Completion [RC] ASDIRECTED Chest 1V Frontal [CR] Routine 01/19/20 10:00 CULTURE URINE [RM] Routine - Assessment Assessment:: As above - Plan Plan:: As above. Extensive precautions were given to the patient, who is in agreement with the treatment plan. The patient will require about 1-2 days of inpatient/acute care secondary to multiple health problems as above. Long-term prognosis poor
[2020-01-19] MEDS ORDERED: Docusate Sodium 100 MG Cap PO PRN (11:59)
[2020-01-19] MEDS: Bisacodyl 5 MG Tab PO SCH (13:12)
[2020-01-19] MEDS: Furosemide 40 MG/4 ML VIAL IVPUSH SCH ×2 (13:12→19:43)
[2020-01-19] MEDS: Potassium Chloride 20 MEQ Tab.ER PO SCH (17:24)
[2020-01-19] MEDS: Mometasone Furoate Powder 220 MCG/Puff 14 Dose Inhaler INH SCH (19:44)
[2020-01-19] MEDS: Tiotropium Inhaler 18 MCG Inhalation Powder Cap Kit of 5 INH SCH (19:46)
[2020-01-20] MEDS: metroNIDAZOLE/Normal Saline 500 MG in Premix Bag 1 BAG IV SCH ×3 (03:02→17:10)
[2020-01-20] MEDS: Albuterol/Ipratropium 3.0-0.5 MG/3 ML Neb Soln NEB SCH ×4 (03:02→19:48)
[2020-01-20] MEDS: Clindamycin in 0.9 % Sod Chlor 600 MG in Premix Bag 1 BAG IV SCH ×6 (03:03→19:39)
[2020-01-20] MEDS: Sodium Chloride 0.9% 10 ML Syringe FLUSH PRN ×6 (03:09→19:39)
[2020-01-20] MEDS: Furosemide 40 MG/4 ML VIAL IVPUSH SCH ×2 (04:16→17:10)
[2020-01-20] MEDS: Cholecalciferol (Vitamin D3) 25 MCG Tab PO SCH ×3 (06:02→19:44)
[2020-01-20] MEDS: Sertraline 50 MG Tab PO SCH (06:02)
[2020-01-20] MEDS: Lidocaine 4% 1 each Patch TOP SCH (06:03)
[2020-01-20] MEDS: Polyvinyl Alcohol 1.4% Ophth Soln 15 ML Bottle EYEBOTH SCH ×4 (06:03→19:56)
[2020-01-20] MEDS: Potassium Chloride 20 MEQ Tab.ER PO SCH ×2 (07:58→17:09)
[2020-01-20] MEDS: Bisacodyl 5 MG Tab PO SCH (07:58)
[2020-01-20] MEDS: Dextromethorphan/guaiFENesin 600-30 MG Tab.ER PO SCH ×2 (07:58→17:09)
[2020-01-20] MEDS: Metoprolol Tartrate 25 MG Tab PO SCH ×2 (07:59→17:09)
[2020-01-20] MEDS ORDERED: Magnesium Citrate Solution 296 ML Bottle PO ONE (08:56)
[2020-01-20] MEDS ORDERED: Polyethylene Glycol 3350 Powder 17 GM Packet PO ONE (08:56)
--- NOTE | 2020-01-20 09:14 | PCM.PN ---
- General Info Date of Service: 01/20/20 Admission Dx/Problem (Free Text): 1. Aspiration pneumonia 2. COPD 3. CHF 4. Atrial fibrillation Functional Status: Reports: Pain Controlled, Tolerating Diet, Ambulating, Urinating (Suprapubic catheter), New Symptoms, Incentive Spirometry, Other (Nonspecific abdominal pain secondary to constipation) Pain Score: 2 - Review of Systems General: Reports: Weakness (Stable generalized). Denies: Fever, Fatigue, Malaise, Chills, Night Sweats, Appetite (Good) HEENT: Reports: Glasses (Waiting 2 years for new prism glasses). Denies: Dysphasia, Ear Pain, Eye Pain, Post Nasal Drip, Sinus Congestion, Sore Throat, Rhinitis, Visual Changes Pulmonary: Reports: Shortness of Breath, Pleuritic Chest Pain, Cough, Sputum (Purulent). Denies: Hemoptysis, Wheezing Cardiovascular: Reports: Dyspnea on Exertion. Denies: Chest Pain, Palpitations, Orthopnea, PND, Edema, Lightheadedness Gastrointestinal: Reports: Abdominal Pain (Generalized likely secondary to constipation), Constipation (No bowel movement since admission). Denies: Decreased Appetite, Diarrhea, Difficulty Swallowing, Flatus, Hematochezia, Melena, Nausea, Vomiting Genitourinary: Reports: Incontinence, Retention (Suprapubic catheter). Denies: Dysuria, Frequency, Burning, Pain, Urgency, Hematuria, Flank Pain Musculoskeletal: Reports: Shoulder Pain (Chronic bilateral left greater than right). Denies: Neck Pain, Arm Pain, Back Pain, Leg Pain Skin: Reports: No Symptoms. Denies: Diaphoresis, Bruising Neurological: Reports: Weakness (As above). Denies: Confusion, Difficulty Walking (Uses cane) Psychiatric: Reports: No Symptoms. Denies: Confusion, Depression, Anxiety, Agitation, Cravings, Hallucinations - Patient Data Vitals - Most Recent: Last Vital Signs Temp 36.6 C 01/20/20 08:00 Pulse 103 H 01/20/20 08:00 Resp 24 H 01/20/20 08:00 BP 102/58 L 01/20/20 08:00 Pulse Ox 93 L 01/20/20 08:00 Vital Signs - 24 hr 01/19/20 01/19/20 01/19/20 16:00 19:30 19:56 Temperature [ 36.9 C 36.8 C Oral] Temperature [ Temporal] Pulse, Peripheral Pulse, 78 76 Peripheral [ Left Pulse Oximetry] Respiratory 14 20 Rate Blood Pressure 90/55 L Blood Pressure 99/62 90/55 L [Right Upper Arm] O2 Sat by Pulse 93 L 92 L Oximetry 01/20/20 01/20/20 01/20/20 01:00 07:59 08:00 Temperature [ 36.8 C Oral] Temperature [ 36.6 C Temporal] Pulse, 101 H Peripheral Pulse, 90 103 H Peripheral [ Left Pulse Oximetry] Respiratory 18 24 H Rate Blood Pressure 102/58 L Blood Pressure 100/64 102/58 L [Right Upper Arm] O2 Sat by Pulse 92 L 93 L Oximetry Weight - Most Recent: 73.482 kg I&O - Last 24 Hours: Intake & Output 01/19/20 01/20/20 01/20/20 22:59 06:59 14:59 Intake Total 547 200 240 Output Total 1550 1200 Balance -1003 -1000 240 Imaging Impressions - Last 24 Hours: None Lab Results Last 24 Hours: Laboratory Results - last 24 hr 01/18/20 01/19/20 Range/Units 12:54 10:00 Specimen Type Urinsp Urine Color Light yellow Urine Appearance Clear Urine pH 7.0 (5.0-9.0) Ur Specific [place] 1.020 (1.005-1.030) Urine Protein Negative (NEGATIVE) mg/dL Urine Glucose (UA) Negative (NEGATIVE) mg/dL Urine Ketones Negative (NEGATIVE) mg/dL Urine Occult Blood Trace-intact H (NEGATIVE) Urine Nitrite Negative (NEGATIVE) Urine Bilirubin Negative (NEGATIVE) Urine Urobilinogen 0.2 (0.2-1.0) E.U./dL Ur Leukocyte Esterase Small H (NEGATIVE) Urine RBC 0-5 /HPF Urine WBC 0-5 /HPF Ur Epithelial Cells Occasional /LPF Urine Bacteria Occasional (NONE TO FEW) /HPF COVID-19 PCR Not detected (NOT DETECT) Jesus Results Last 24 Hours: Microbiology 01/17/20 16:55 Aerobic Blood Culture - Preliminary Blood - Venous - Lab Draw NO GROWTH AFTER 2 DAYS Anaerobic Blood Culture - Preliminary NO GROWTH AFTER 2 DAYS 01/17/20 16:49 Aerobic Blood Culture - Preliminary Blood - Venous Gram Negative Rods Staph Sp, Agglutination Neg Anaerobic Blood Culture - Preliminary NO GROWTH AFTER 2 DAYS Urine culture and sensitivity still pending Med Orders - Current: Current Medications Acetaminophen (Tylenol Extra Strength) 1,000 mg PO Q6HR PRN PRN Reason: Pain Albuterol/Ipratropium (Duoneb 3.0-0.5 Mg/3 Ml) 3 ml NEB Q6HRRT [facility] Last Admin: 01/20/20 07:58 Dose: 3 ml Documented by: Artificial Tears (Liquitears 1.4% Ophth Soln) 0 ml EYEBOTH QID@07,12,16,20 [facility] Last Admin: 01/20/20 06:03 Dose: 2 drop Documented by: Aspirin (Halfprin) 81 mg PO MoWeFr@0700 [facility] Last Admin: 01/19/20 08:29 Dose: 81 mg Documented by: Bisacodyl (Dulcolax) 5 mg PO DAILY [facility] Last Admin: 01/20/20 07:58 Dose: 5 mg Documented by: Cholecalciferol (Vitamin D3) 25 mcg PO TID@,,20 [facility] Last Admin: 01/20/20 06:02 Dose: 25 mcg Documented by: Docusate Sodium (Colace) 100 mg PO BID VINCE Furosemide (Lasix) 40 mg IVPUSH Q12H [facility] Guaifenesin/Dextromethorphan (Mucinex Dm Er 600-30 Mg) 1 tab PO BID [facility] Last Admin: 01/20/20 07:58 Dose: 1 tab Documented by: Clindamycin/Sodium Chloride (600 mg/ Premix) 50 mls @ 100 mls/hr IV Q8H [facility] Last Admin: 01/20/20 03:03 Dose: 100 mls/hr Documented by: Metronidazole 500 mg/ Premix 100 mls @ 100 mls/hr IV Q8H [facility] Last Admin: 01/20/20 03:02 Dose: 100 mls/hr Documented by: Lidocaine (Aspercreme 4%) 1 each TOP DAILY@0700 [facility] Last Admin: 01/20/20 06:03 Dose: 1 each Documented by: Loperamide HCl (Imodium Ad) 2 mg PO SEECOMMENT PRN PRN Reason: DIARRHEA Magnesium Citrate (Citrate Of Magnesia) 0 ml PO ONETIME ONE Stop: 01/20/20 08:57 Magnesium Hydroxide (Milk Of Magnesia) 30 ml PO DAILY PRN PRN Reason: Constipation Last Admin: 01/19/20 08:28 Dose: 30 ml Documented by: Metoprolol Tartrate (Lopressor) 25 mg PO BID [facility] Last Admin: 01/20/20 07:59 Dose: 25 mg Documented by: Mometasone Furoate (Asmanex 220 Mcg) 1 puff INH BEDTIME [facility] Last Admin: 01/19/20 19:44 Dose: 1 puff Documented by: Polyethylene Glycol (Miralax) 17 gm PO ONETIME ONE Stop: 01/20/20 08:57 Potassium Chloride (Klor-Con M20) 20 meq PO BID [facility] Sertraline HCl (Zoloft) 50 mg PO DAILY@0700 [facility] Last Admin: 01/20/20 06:02 Dose: 50 mg Documented by: Sodium Chloride (Saline Flush) 10 ml FLUSH ASDIRECTED PRN PRN Reason: Keep Vein Open Last Admin: 01/20/20 04:16 Dose: 10 ml Documented by: Sodium Chloride (Saline Flush) 10 ml FLUSH ASDIRECTED PRN PRN Reason: Keep Vein Open Last Admin: 01/19/20 19:44 Dose: 10 ml Documented by: Tiotropium Holly (Spiriva Handihaler) 18 mcg INH BEDTIME [facility] Last Admin: 01/19/20 19:46 Dose: 1 inh Documented by: Discontinued Medications Docusate Sodium (Colace) 100 mg PO BID PRN PRN Reason: Constipation Last Admin: 01/20/20 03:06 Dose: 100 mg Documented by: Furosemide (Lasix) 20 mg IV BID [facility] Last Admin: 01/19/20 08:30 Dose: 20 mg Documented by: Furosemide (Lasix) 40 mg IVPUSH Q8H [facility] Last Admin: 01/20/20 04:16 Dose: 40 mg Documented by: Azithromycin 500 mg/ Sodium (Chloride) 250 mls @ 250 mls/hr IV Q24H [facility] Last Admin: 01/17/20 21:56 Dose: 250 mls/hr Documented by: Metoprolol Tartrate (Lopressor) 50 mg PO BID@0700,1999 [facility] Last Admin: 01/19/20 19:56 Dose: Not Given Documented by: Non-Formulary Medication (Potassium Chloride) 15 ml PO DAILY [facility] Polyethylene Glycol (Miralax) 17 gm PO ONETIME ONE Stop: 01/19/20 11:59 Last Admin: 01/19/20 13:12 Dose: 17 gm Documented by: Potassium Chloride (Potassium Chloride Solution) 20 meq PO DAILY [facility] Last Admin: 01/19/20 08:27 Dose: 20 meq Documented by: Potassium Chloride (Klor-Con M20) 20 meq PO TID [facility] Last Admin: 01/20/20 07:58 Dose: 20 meq Documented by: - Exam Quality Assessment: Urine Catheter (Suprapubic), DVT Prophylaxis. No: Supplemental Oxygen, Central Line/PICC, Skin Breakdown, Restraints General: Alert, Oriented, Cooperative, No Acute Distress HEENT: Pupils Equal, Pupils Reactive, EOMI, Mucous Membr. Moist/Brea, Other (Glasses with chronic history of diplopia and awaiting prism glasses for 2 years. Stable 1 cm in diameter benign cystic lesion over the mid forehead.). No: Scleral Icterus Neck: Supple, Trachea Midline, No JVD, No Thyromegaly. No: Lymphadenopathy Lungs: Normal Respiratory Effort, Decreased Breath Sounds (Right base), Rales (Improved mild to moderate diffuse bilateral particularly in the right lower lung). No: Rhonchi, Rub, Wheezing Cardiovascular: Regular Rate, No Murmurs, Irregular Rhythm. No: Gallops, Rubs GI/Abdominal Exam: Normal Bowel Sounds, Soft, No Organomegaly, No Distention, No Abnormal Bruit, No Mass, Tender (Nonspecific mild generalized palpation pain). No: Non-Tender, Guarding, Rigid, Rebound (Male) Exam: Deferred Back Exam: Normal Inspection, Full Range of Motion. No: CVA Tenderness (L), CVA Tenderness (R), Muscle Spasm Extremities: Normal Inspection, Normal Range of Motion, Non-Tender, No Pedal Edema, Normal Capillary Refill, Other (Moderate to severe bilateral varicose veins and venous stasis dermatitis of the lower extremities, left greater than right). No: Adelia's Sign Peripheral Pulses: 2+: Radial (L), Radial (R), Posterior Tibial (R), Dorsalis Pedis (L) Skin: Rash (Venous stasis dermatitis as above), Other (Forehead cystic lesion as above). No: Ecchymosis Neurological: No New Focal Deficit, Other (No clinical orthostasis) Psy/Mental Status: Alert, Normal Affect, Normal Mood. No: Agitated, Hallucinations, Withdrawal Symptoms Sepsis Event Note - Evaluation Sepsis Screening Result: No Definite Risk - Focused Exam Vital Signs: Vital Signs Temp Temp Pulse Pulse Resp BP BP 01/20/20 08:00 36.6 C 103 H 24 H 102/58 L 01/20/20 07:59 101 H 102/58 L 01/20/20 01:00 36.8 C 90 18 100/64 Pulse Ox 01/20/20 08:00 93 L 01/20/20 07:59 01/20/20 01:00 92 L Date Exam was Performed: 01/20/20 Time Exam was Performed: : - Problem List & Annotations (1) Pneumonia SNOMED Code(s): 802824064 Code(s): J18.9 - PNEUMONIA, UNSPECIFIED ORGANISM Status: Acute Priority: High Current Visit: Yes Onset Date: 07/19/19 Qualifiers: Pneumonia type: aspiration pneumonia Aspiration pneumonia type: unspecified Laterality: right Lung location: lower lobe of lung Qualified Code(s): J69.0 - Pneumonitis due to inhalation of food and vomit Annotation/Comment:: Patient is still afebrile with no leukocytosis however worsening chest x-ray on 01/18. Positive anaerobic blood culture 1 for minimal gram-negative rods with normal UA and urine culture and sensitivity from suprapubic catheter still pending. Above positive anaerobic blood culture also shows a probable contaminant. Right lower lobe pneumonia initially with probable bilateral pneumonia at this time. COVID-19 specimen collected during this hospitalization was negative. Note probable CHF component. Previous worsening of patient's symptoms prior to admission despite three days of Zithromax and Rocephin. May have aspiration component. Mild intermittent hypoxemia has resolved. IV Zithromax was continued during the initial 24 hours of hospitalization, however this was subsequently discontinued on 01/17 and changed to IV Flagyl therapy with previous Rocephin changed to IV Clindamycin on admission. Continue to attempt to obtain a sputum specimen for culture and sensitivity. (2) CHF (congestive heart failure) SNOMED Code(s): 79818555 Code(s): I50.9 - HEART FAILURE, UNSPECIFIED Status: Chronic Priority: High Current Visit: Yes Qualifiers: Heart failure type: unspecified Heart failure chronicity: chronic Qualified Code(s): I50.9 - Heart failure, unspecified Annotation/Comment:: Previously increased IV Lasix therapy as below was decreased on 01/19 secondary to some developing hypotension with symptomatic blood pressure of 90/55. Lopressor was held in the p.m. on 04/20 with decrease of his Lopressor therapy starting in the a.m. of 01/19. Significantly elevated proBNP on admission with no chest pain or anginal type symptoms. Progressive changes on chest xray on 01/18 suggestive of mild CHF, however improved BNP. Note that the patient had not experienced any weight gain prior to admission. Low- dose IV Lasix ordered on admission with IV Lasix therapy increased on 01/18. Otherwise negative cardiac enzymes and EKG to this point. Note comfort care with no additional echocardiogram, etc. at this time. (3) Dysphagia SNOMED Code(s): 86593366, 525491680 Code(s): R13.10 - DYSPHAGIA, UNSPECIFIED Status: Chronic Priority: Medium Current Visit: Yes Qualifiers: Dysphagia type: unspecified Qualified Code(s): R13.10 - Dysphagia, unspecified Annotation/Comment:: As above. Aspiration precautions initiated. Speech therapy consultation has been ordered. (4) Atrial fibrillation SNOMED Code(s): 41714977 Code(s): I48.91 - UNSPECIFIED ATRIAL FIBRILLATION Status: Acute Priority: Medium Current Visit: Yes Qualifiers: Atrial fibrillation type: longstanding persistent Qualified Code(s): I48.11 - Longstanding persistent atrial fibrillation Annotation/Comment:: Chronic/stable. Not anticoagulated secondary to comfort care and risk factors. Telemetry started on 01/19 secondary to decreased Lopressor therapy on that day as above. (5) COPD (chronic obstructive pulmonary disease) SNOMED Code(s): 33552952 Code(s): J44.9 - CHRONIC OBSTRUCTIVE PULMONARY DISEASE, UNSPECIFIED Status: Acute Priority: High Current Visit: Yes Qualifiers: COPD type: chronic bronchitis Chronic bronchitis type: simple Qualified Code(s): J41.0 - Simple chronic bronchitis Annotation/Comment:: Otherwise stable by history with aspiration pneumonia as above. (6) PVCs (premature ventricular contractions) SNOMED Code(s): 41133979 Code(s): I49.3 - VENTRICULAR PREMATURE DEPOLARIZATION Status: Acute Priority: High Current Visit: Yes Onset Date: 07/10/19 Annotation/Comment:: Observe for now. (7) Coronary artery disease SNOMED Code(s): 98099302 Code(s): I25.10 - ATHSCL HEART DISEASE OF [place] CORONARY ARTERY W/O ANG PCTRS Status: Chronic Priority: High Current Visit: Yes Qualifiers: Coronary Disease-Associated Artery/Lesion type: bypass graft [place] vs. transplanted heart: [place] heart Associated angina: without angina Qualified Code(s): I25.810 - Atherosclerosis of coronary artery bypass graft(s) without angina pectoris Annotation/Comment:: As above. (8) Hypertension SNOMED Code(s): 21604732 Code(s): I10 - ESSENTIAL (PRIMARY) HYPERTENSION Status: Chronic Priority: Medium Current Visit: Yes Qualifiers: Hypertension type: essential hypertension Qualified Code(s): I10 - Essential (primary) hypertension Annotation/Comment:: Stable during this hospitalization other than mild nonsymptomatic hypotension in 01/18 as above secondary to aggressive IV Lasix therapy. (9) Anemia SNOMED Code(s): 250383025 Code(s): D64.9 - ANEMIA, UNSPECIFIED Status: Acute Priority: Medium Current Visit: Yes Onset Date: 01/18/20 Qualifiers: Anemia type: unspecified type Qualified Code(s): D64.9 - Anemia, unspecified Annotation/Comment:: No evidence of acute GI bleed. Vitamin B-12 level and ferritin level were normal on 01/18. Note mildly decreased iron level however concomitant hypoalbuminemia. Observe for now. Improved hemoglobin on 01/18. (10) Need for comfort care SNOMED Code(s): 995948397, 405299723 Code(s): ORI3452 - Status: Chronic Priority: High Current Visit: Yes Annotation/Comment:: Long-term prognosis is extremely poor secondary to multiple health problems as below. Confirmed on admission. (11) Hypoalbuminemia SNOMED Code(s): 038908226 Code(s): E88.09 - OTH DISORDERS OF PLASMA-PROTEIN METABOLISM, NEC Status: Acute Priority: Medium Current Visit: Yes Onset Date: 01/18/20 Annotation/Comment:: Observe for now. Consider high-protein Glucerna supplements as snacks. (12) Constipation SNOMED Code(s): 43570157 Code(s): K59.00 - CONSTIPATION, UNSPECIFIED Status: Acute Priority: High Current Visit: Yes Qualifiers: Constipation type: slow transit constipation Qualified Code(s): K59.01 - Slow transit constipation Annotation/Comment:: Refractory constipation despite MiraLAX, Dulcolax, and Colace, which was initiated on 01/18. This Colace will be changed to a twice a day basis with patient receiving MiraLAX with magnesium citrate on 01/19. - Problem List Review Problem List Initiated/Reviewed/Updated: Yes - My Orders Last 24 Hours: My Active Orders 01/19/20 10:00 CULTURE URINE [RM] Routine 01/19/20 12:00 bisacodyL [Dulcolax] 5 mg PO DAILY 01/20/20 08:00 Metoprolol Tartrate [Lopressor] 25 mg PO BID 01/20/20 08:56 Magnesium Citrate [Citrate of Magnesia] See Dose Instructions PO ONETIME ONE polyethylene glycoL 3350 [MiraLAX] 17 gm PO ONETIME ONE 01/20/20 08:57 Cardiac Monitoring [RC] . DIRECTED 01/20/20 18:00 Docusate Sodium [Colace] 100 mg PO BID Furosemide [Lasix] 40 mg IVPUSH Q12H Potassium Chloride [Klor-Con M20] 20 meq PO BID 01/21/20 05:11 Chest 2V [CR] Routine CBC WITH AUTO DIFF [HEME] Routine COMPREHENSIVE METABOLIC PN,CMP [CHEM] Routine MAGNESIUM [CHEM] Routine PRO B-TYPE NATRIUR PEPT,BNPPRO [CHEM] Routine URIC ACID [CHEM] Routine - Assessment Assessment:: As above - Plan Plan:: As above. Extensive precautions were given to the patient, who is in agreement with the treatment plan. The patient will require about 1-2 days of inpatient/acute care secondary to multiple health problems as above. Belinda kaye physician assumes care in the a.m.. Probable extended hospitalization will be required secondary to slow improvement of his multiple health problems as above. His Long-term prognosis poor
[2020-01-20] MEDS: Docusate Sodium 100 MG Cap PO SCH (17:09)
[2020-01-20] MEDS: Mometasone Furoate Powder 220 MCG/Puff 14 Dose Inhaler INH SCH (19:45)
[2020-01-20] MEDS: Tiotropium Inhaler 18 MCG Inhalation Powder Cap Kit of 5 INH SCH (19:47)
[2020-01-21] MEDS: Albuterol/Ipratropium 3.0-0.5 MG/3 ML Neb Soln NEB SCH ×4 (01:11→19:21)
[2020-01-21] MEDS: Sodium Chloride 0.9% 10 ML Syringe FLUSH PRN ×4 (01:13→19:12)
[2020-01-21] MEDS: metroNIDAZOLE/Normal Saline 500 MG in Premix Bag 1 BAG IV SCH ×3 (01:13→17:37)
[2020-01-21] MEDS: Clindamycin in 0.9 % Sod Chlor 600 MG in Premix Bag 1 BAG IV SCH ×6 (02:19→19:12)
[2020-01-21] MEDS: Furosemide 40 MG/4 ML VIAL IVPUSH SCH (06:17)
[2020-01-21 07:52] LABS: CHLORIDE,CL 105 mmol/L (98-107); SODIUM,NA 143 mmol/L (136-145)
[2020-01-21] MEDS: Lidocaine 4% 1 each Patch TOP SCH ×2 (08:29→11:04)
[2020-01-21] MEDS: Polyvinyl Alcohol 1.4% Ophth Soln 15 ML Bottle EYEBOTH SCH ×4 (08:30→19:30)
[2020-01-21] MEDS: Sertraline 50 MG Tab PO SCH (08:30)
[2020-01-21] MEDS: Aspirin 81 MG Tab.EC PO SCH (08:30)
[2020-01-21] MEDS: Cholecalciferol (Vitamin D3) 25 MCG Tab PO SCH ×3 (08:30→19:17)
[2020-01-21] MEDS: Potassium Chloride 20 MEQ Tab.ER PO SCH ×2 (08:31→17:35)
[2020-01-21] MEDS: Docusate Sodium 100 MG Cap PO SCH ×2 (08:34→17:38)
[2020-01-21] MEDS: Bisacodyl 5 MG Tab PO SCH (08:34)
[2020-01-21] MEDS: Dextromethorphan/guaiFENesin 600-30 MG Tab.ER PO SCH ×2 (08:36→17:35)
[2020-01-21] MEDS: Metoprolol Tartrate 25 MG Tab PO SCH (10:49)
--- NOTE | 2020-01-21 14:47 | PCM.PN ---
- General Info Date of Service: 01/21/20 Admission Dx/Problem (Free Text): 1. Aspiration pneumonia 2. COPD 3. CHF 4. Atrial fibrillation Subjective Update: Patient says that he feels ok and overall does not feel sick. No new complaints. Functional Status: Reports: Pain Controlled, Tolerating Diet, Ambulating, Urinating, Incentive Spirometry. Denies: New Symptoms - Review of Systems General: Reports: No Symptoms HEENT: Reports: Glasses. Denies: Visual Changes Pulmonary: Reports: Cough (mild), Sputum (mild amount). Denies: Shortness of Breath, Pleuritic Chest Pain, Hemoptysis, Wheezing Cardiovascular: Denies: Chest Pain, Dyspnea on Exertion, Orthopnea, Lightheadedness Gastrointestinal: Reports: Difficulty Swallowing (hx dysphagia). Denies: Abdominal Pain, Constipation, Diarrhea, Nausea, Vomiting Genitourinary: Reports: Other (no acute changes) Skin: Reports: Other (no acute changes) Neurological: Reports: No Symptoms Psychiatric: Reports: No Symptoms - Patient Data Vitals - Most Recent: Last Vital Signs Temp 36.6 C 01/21/20 08:00 Pulse 95 01/21/20 10:50 Resp 18 01/21/20 08:00 BP 96/58 L 01/21/20 10:50 Pulse Ox 93 L 01/21/20 10:50 Weight - Most Recent: 73.482 kg I&O - Last 24 Hours: Intake & Output 01/20/20 01/21/20 01/21/20 22:59 06:59 14:59 Intake Total 250 300 450 Output Total 600 400 Balance -350 -100 450 Lab Results Last 24 Hours: Laboratory Results - last 24 hr 01/21/20 01/21/20 Range/Units 07:15 07:15 WBC 5.8 (4.0-10.2) K/uL RBC 4.81 (4.33-5.41) M/uL Hgb 13.8 (13.1-16.8) g/dL Hct 43.1 (39.0-49.0) % MCV 89.6 (84.0-98.0) fL MCH 28.7 (28.2-33.3) pg MCHC 32.0 (31.7-36.0) g/dL RDW 16.1 H (11.2-14.1) % Plt Count 207 (150-350) K/uL Neut % (Auto) 69.2 (45.0-80.0) % Lymph % (Auto) 14.5 (10.0-50.0) % [place] % (Auto) 8.5 (2.0-14.0) % Eos % (Auto) 6.9 H (0.0-5.0) % Baso % (Auto) 0.9 (0.0-2.0) % Neut # (Auto) 4.01 (1.40-7.00) K/uL Lymph # (Auto) 0.84 (0.50-3.50) K/uL [place] # (Auto) 0.49 (0.00-1.00) K/uL Eos # (Auto) 0.40 (0.00-0.50) K/uL Baso # (Auto) 0.05 (0.00-0.20) K/uL Sodium 143 (136-145) mmol/L Potassium 4.1 (3.5-5.1) mmol/L Chloride 105 (98-107) mmol/L Carbon Dioxide 31.5 (21.0-32.0) mmol/L BUN 37 H (7-18) mg/dL Creatinine 0.80 (0.51-1.17) mg/dL Est Cr Clr Drug Dosing 62.96 mL/min Estimated GFR (MDRD) > 60 mL/min Glucose 131 H (74-106) mg/dL Uric Acid 7.8 H (2.6-7.2) mg/dL Calcium 8.2 L (8.5-10.1) mg/dL Magnesium 2.4 (1.8-2.4) mg/dL Total Bilirubin 0.5 (0.2-1.0) mg/dL AST 19 (15-37) U/L ALT 15 (12-78) U/L Alkaline Phosphatase 79 (46-116) IU/L NT-Pro-B Natriuret Pep 648 H (0-125) pg/mL Total Protein 6.9 (6.4-8.2) g/dL Albumin 2.6 L (3.4-5.0) g/dL Jesus Results Last 24 Hours: Microbiology 01/19/20 10:00 Urine Culture - Final Urine, Catheterized Staphylococcus Sciuri 01/17/20 16:49 Aerobic Blood Culture - Final Blood - Venous Gram Negative Rods Staph Sp, Agglutination Neg Anaerobic Blood Culture - Preliminary NO GROWTH AFTER 3 DAYS 01/17/20 16:55 Aerobic Blood Culture - Preliminary Blood - Venous - Lab Draw NO GROWTH AFTER 3 DAYS Anaerobic Blood Culture - Preliminary NO GROWTH AFTER 3 DAYS Med Orders - Current: Current Medications Acetaminophen (Tylenol Extra Strength) 1,000 mg PO Q6HR PRN PRN Reason: Pain Albuterol/Ipratropium (Duoneb 3.0-0.5 Mg/3 Ml) 3 ml NEB Q6HRRT [facility] Last Admin: 01/21/20 08:31 Dose: 3 ml Documented by: Artificial Tears (Liquitears 1.4% Ophth Soln) 0 ml EYEBOTH QID@,,, [facility] Last Admin: 01/21/20 12:05 Dose: 1 drop Documented by: Aspirin (Halfprin) 81 mg PO MoWeFr@0700 [facility] Last Admin: 01/21/20 08:30 Dose: 81 mg Documented by: Bisacodyl (Dulcolax) 5 mg PO DAILY [facility] Last Admin: 01/21/20 08:34 Dose: Not Given Documented by: Cholecalciferol (Vitamin D3) 25 mcg PO TID@, [facility] Last Admin: 01/21/20 08:30 Dose: 25 mcg Documented by: Docusate Sodium (Colace) 100 mg PO BID [facility] Last Admin: 01/21/20 08:34 Dose: Not Given Documented by: Guaifenesin/Dextromethorphan (Mucinex Dm Er 600-30 Mg) 1 tab PO BID [facility] Last Admin: 01/21/20 08:36 Dose: 1 tab Documented by: Clindamycin/Sodium Chloride (600 mg/ Premix) 50 mls @ 100 mls/hr IV Q8H [facility] Last Admin: 01/21/20 12:05 Dose: 100 mls/hr Documented by: Metronidazole 500 mg/ Premix 100 mls @ 100 mls/hr IV Q8H [facility] Last Admin: 01/21/20 11:04 Dose: 100 mls/hr Documented by: Lidocaine (Aspercreme 4%) 1 each TOP DAILY@0700 [facility] Last Admin: 01/21/20 11:04 Dose: 1 each Documented by: Loperamide HCl (Imodium Ad) 2 mg PO SEECOMMENT PRN PRN Reason: DIARRHEA Magnesium Hydroxide (Milk Of Magnesia) 30 ml PO DAILY PRN PRN Reason: Constipation Last Admin: 01/19/20 08:28 Dose: 30 ml Documented by: Metoprolol Tartrate (Lopressor) 25 mg PO BID [facility] Last Admin: 01/21/20 10:49 Dose: Not Given Documented by: Mometasone Furoate (Asmanex 220 Mcg) 1 puff INH BEDTIME [facility] Last Admin: 01/20/20 19:45 Dose: 1 puff Documented by: Potassium Chloride (Klor-Con M20) 20 meq PO BID [facility] Last Admin: 01/21/20 08:31 Dose: 20 meq Documented by: Sertraline HCl (Zoloft) 50 mg PO DAILY@0700 [facility] Last Admin: 01/21/20 08:30 Dose: 50 mg Documented by: Sodium Chloride (Saline Flush) 10 ml FLUSH ASDIRECTED PRN PRN Reason: Keep Vein Open Last Admin: 01/21/20 11:04 Dose: 10 ml Documented by: Sodium Chloride (Saline Flush) 10 ml FLUSH ASDIRECTED PRN PRN Reason: Keep Vein Open Last Admin: 01/19/20 19:44 Dose: 10 ml Documented by: Tiotropium [place] (Spiriva Handihaler) 18 mcg INH BEDTIME [facility] Last Admin: 01/20/20 19:47 Dose: 1 inh Documented by: Discontinued Medications Docusate Sodium (Colace) 100 mg PO BID PRN PRN Reason: Constipation Last Admin: 01/20/20 03:06 Dose: 100 mg Documented by: Furosemide (Lasix) 20 mg IV BID [facility] Last Admin: 01/19/20 08:30 Dose: 20 mg Documented by: Furosemide (Lasix) 40 mg IVPUSH Q8H [facility] Last Admin: 01/20/20 04:16 Dose: 40 mg Documented by: Furosemide (Lasix) 40 mg IVPUSH Q12H [facility] Last Admin: 01/21/20 06:17 Dose: 40 mg Documented by: Azithromycin 500 mg/ Sodium (Chloride) 250 mls @ 250 mls/hr IV Q24H [facility] Last Admin: 01/17/20 21:56 Dose: 250 mls/hr Documented by: Magnesium Citrate (Citrate Of Magnesia) 296 ml PO ONETIME ONE Stop: 01/20/20 08:57 Last Admin: 01/20/20 09:36 Dose: 296 ml Documented by: Metoprolol Tartrate (Lopressor) 50 mg PO BID@0700,1999 [facility] Last Admin: 01/19/20 19:56 Dose: Not Given Documented by: Non-Formulary Medication (Potassium Chloride) 15 ml PO DAILY [facility] Polyethylene Glycol (Miralax) 17 gm PO ONETIME ONE Stop: 01/19/20 11:59 Last Admin: 01/19/20 13:12 Dose: 17 gm Documented by: Polyethylene Glycol (Miralax) 17 gm PO ONETIME ONE Stop: 01/20/20 08:57 Last Admin: 01/20/20 09:36 Dose: 17 gm Documented by: Potassium Chloride (Potassium Chloride Solution) 20 meq PO DAILY [facility] Last Admin: 01/19/20 08:27 Dose: 20 meq Documented by: Potassium Chloride (Klor-Con M20) 20 meq PO TID [facility] Last Admin: 01/20/20 07:58 Dose: 20 meq Documented by: - Exam General: Alert, Oriented, Cooperative, No Acute Distress HEENT: Pupils Equal, Pupils Reactive, EOMI, Mucous Membr. Moist/[place] Neck: Supple Lungs: Normal Respiratory Effort, Rales (at bases). No: Rhonchi, Stridor, Wheezing Cardiovascular: Irregular Rhythm GI/Abdominal Exam: Normal Bowel Sounds, Soft, Non-Tender, No Distention (Male) Exam: Deferred Back Exam: No: Muscle Spasm Extremities: Non-Tender, Normal Capillary Refill Skin: Warm, Dry Neurological: No New Focal Deficit Psy/Mental Status: Alert, Normal Affect, Normal Mood Sepsis Event Note - Evaluation Sepsis Screening Result: No Definite Risk - Focused Exam Vital Signs: Vital Signs Temp Pulse Pulse Resp BP BP Pulse Ox 01/21/20 10:50 95 96/58 L 93 L 01/21/20 10:49 95 96/58 L 01/21/20 08:00 36.6 C 75 18 91/58 L 94 L Date Exam was Performed: 01/21/20 Time Exam was Performed: 14:42 - Problem List & Annotations (1) Pneumonia SNOMED Code(s): 549351786 Code(s): J18.9 - PNEUMONIA, UNSPECIFIED ORGANISM Status: Acute Priority: High Current Visit: Yes Onset Date: 07/19/19 Qualifiers: Pneumonia type: aspiration pneumonia Aspiration pneumonia type: unspecified Laterality: right Lung location: lower lobe of lung Qualified Code(s): J69.0 - Pneumonitis due to inhalation of food and vomit Annotation/Comment:: Patient is afebrile with no leukocytosis however worsening chest x-ray on 01/18. Negative blood cultures but one was felt to show contaminant. Chest xray shows some improvement today. Right lower lobe pneumonia initially with probable bilateral pneumonia at this time. COVID-19 specimen collected during this hospitalization was negative. Note probable CHF component. Probable plural effusion on right. Previous worsening of patient's symptoms prior to admission despite three days of Zithromax and Rocephin. May have aspiration component. Mild intermittent hypoxemia has resolved. IV Zithromax was continued during the initial 24 hours of hospitalization, however this was subsequently discontinued on 01/17 and changed to IV Flagyl therapy with previous Rocephin changed to IV Clindamycin on admission. Continuing to attempt to obtain a sputum specimen for culture and sensitivity. (2) Dysphagia SNOMED Code(s): 79881459, 717118789 Code(s): R13.10 - DYSPHAGIA, UNSPECIFIED Status: Chronic Priority: Medium Current Visit: Yes Qualifiers: Dysphagia type: unspecified Qualified Code(s): R13.10 - Dysphagia, unspecified Annotation/Comment:: As above. Aspiration precautions initiated. Speech therapy recommends pudding thick liquids/pureed diet. Patient not happy about this but says he understands. (3) CHF (congestive heart failure) SNOMED Code(s): 72934057 Code(s): I50.9 - HEART FAILURE, UNSPECIFIED Status: Chronic Priority: High Current Visit: Yes Qualifiers: Heart failure type: unspecified Heart failure chronicity: chronic Qualified Code(s): I50.9 - Heart failure, unspecified Annotation/Comment:: Elevated proBNP/changes on chest xray suggestive of CHF. Patient denies weight gain/fluid retention recently. Today's chest xray shows some improvement of CHF. IV Lasix therapy currently on hold secondary to developing hypotension with symptomatic blood pressure of 90/55. Otherwise negative cardiac enzymes and EKG to this point. Note comfort care with no additional echocardiogram, etc. at this time. (4) Hypertension SNOMED Code(s): 45739824 Code(s): I10 - ESSENTIAL (PRIMARY) HYPERTENSION Status: Chronic Priority: Medium Current Visit: Yes Qualifiers: Hypertension type: essential hypertension Qualified Code(s): I10 - Essential (primary) hypertension Annotation/Comment:: Stable during this hospitalization but noted to have some nonsymptomatic hypotension secondary to aggressive IV Lasix therapy. This led to Lopressor being held. Both Lasix and Lopressor held today because of this. (5) Atrial fibrillation SNOMED Code(s): 29506700 Code(s): I48.91 - UNSPECIFIED ATRIAL FIBRILLATION Status: Acute Priority: Medium Current Visit: Yes Qualifiers: Atrial fibrillation type: longstanding persistent Qualified Code(s): I48.11 - Longstanding persistent atrial fibrillation Annotation/Comment:: Chronic/stable. Not anticoagulated secondary to comfort care and risk factors. Telemetry started on 01/19 secondary to decreased Lopressor therapy on that day as above. D/C'd on 01/20 (6) Coronary artery disease SNOMED Code(s): 15137429 Code(s): I25.10 - ATHSCL HEART DISEASE OF [place] CORONARY ARTERY W/O ANG PCTRS Status: Chronic Priority: High Current Visit: Yes Qualifiers: Coronary Disease-Associated Artery/Lesion type: bypass graft [place] vs. transplanted heart: [place] heart Associated angina: without angina Qualified Code(s): I25.810 - Atherosclerosis of coronary artery bypass graft(s) without angina pectoris Annotation/Comment:: As above. (7) COPD (chronic obstructive pulmonary disease) SNOMED Code(s): 92106917 Code(s): J44.9 - CHRONIC OBSTRUCTIVE PULMONARY DISEASE, UNSPECIFIED Status: Acute Priority: High Current Visit: Yes Qualifiers: COPD type: chronic bronchitis Chronic bronchitis type: simple Qualified Code(s): J41.0 - Simple chronic bronchitis Annotation/Comment:: Otherwise stable by history with aspiration pneumonia as above. (8) PVD (peripheral vascular disease) SNOMED Code(s): 503679241 Code(s): I73.9 - PERIPHERAL VASCULAR DISEASE, UNSPECIFIED Status: Chronic Priority: Low Current Visit: No (9) Sleep apnea SNOMED Code(s): 58023945 Code(s): G47.30 - SLEEP APNEA, UNSPECIFIED Status: Chronic Priority: Low Current Visit: No Qualifiers: Sleep apnea type: unspecified type Qualified Code(s): G47.30 - Sleep apnea, unspecified (10) Anxiety SNOMED Code(s): 30532798 Code(s): F41.9 - ANXIETY DISORDER, UNSPECIFIED Status: Chronic Priority: Low Current Visit: No Annotation/Comment:: Stable per history (11) Glaucoma SNOMED Code(s): 81574091 Code(s): H40.9 - UNSPECIFIED GLAUCOMA Status: Chronic Priority: Low Current Visit: No Qualifiers: Glaucoma type: unspecified (12) Chronic indwelling [place] catheter SNOMED Code(s): 408501133 Code(s): Z97.8 - PRESENCE OF OTHER SPECIFIED DEVICES Status: Chronic Priority: Low Current Visit: No (13) Hyperlipidemia SNOMED Code(s): 09623349 Code(s): E78.5 - HYPERLIPIDEMIA, UNSPECIFIED Status: Chronic Priority: Low Current Visit: No Qualifiers: Hyperlipidemia type: mixed hyperlipidemia Qualified Code(s): E78.2 - Mixed hyperlipidemia (14) Weakness SNOMED Code(s): 08097988 Code(s): R53.1 - WEAKNESS Status: Chronic Priority: Low Current Visit: No (15) Anemia SNOMED Code(s): 603874818 Code(s): D64.9 - ANEMIA, UNSPECIFIED Status: Acute Priority: Medium Current Visit: Yes Onset Date: 01/18/20 Qualifiers: Anemia type: unspecified type Qualified Code(s): D64.9 - Anemia, unspecified Annotation/Comment:: No evidence of acute GI bleed. Vitamin B-12 level and ferritin level were normal on 01/18. Note mildly decreased iron level however concomitant hypoalbuminemia. Observe for now. Improved hemoglobin on 01/18. (16) UTI (urinary tract infection) SNOMED Code(s): 74635343 Code(s): N39.0 - URINARY TRACT INFECTION, SITE NOT SPECIFIED Status: Acute Current Visit: No Qualifiers: Urinary tract infection type: site unspecified Hematuria presence: without hematuria Qualified Code(s): N39.0 - Urinary tract infection, site not specified Annotation/Comment:: UA performed showed no evidence of UTI other than small amount of Leuk Est. UC shows growth of Staph Sciuri. Given that patient is already on Clindamycin and Flagyl, another 3rd antibiotic was felt to be risky for patient's kidneys given his age, as well as increasing possible CDiff. Given that UA was overall good in appearance, will contact patient's primary provider and have her start treatment for this after course of therapy finished for pneumonia. - Problem List Review Problem List Initiated/Reviewed/Updated: Yes - Assessment Assessment:: As above - Plan Plan:: As above. Extensive precautions were given to the patient, who is in agreement with the treatment plan. The patient will require about 1 day of inpatient/acute care secondary to multiple health problems as above.His Long-term prognosis poor. Patient wishes to go home and is not wanting to stay inpatient. He was agreeable with leaving tomorrow after we discussed our concern for the low blood pressures that were a result of the diuresis from Lasix. Lasix and Lopressor currently being held. Plan will be to try to discharge him home on his usual meds given the hypotension encountered with more aggressive diuretic doses, however concern is that CHF will also become more prominent contributor to patient's hypoxemia/pneumonia issues. He made it clear to staff that he was unhappy with the complications encountered from changing his usual meds. He was much happier after the visit and is agreeable with the above plan.
[2020-01-21] MEDS: Mometasone Furoate Powder 220 MCG/Puff 14 Dose Inhaler INH SCH (19:14)
[2020-01-21] MEDS: Tiotropium Inhaler 18 MCG Inhalation Powder Cap Kit of 5 INH SCH (19:15)
[2020-01-22] MEDS: Albuterol/Ipratropium 3.0-0.5 MG/3 ML Neb Soln NEB SCH ×3 (01:06→16:38)
[2020-01-22] MEDS: Sodium Chloride 0.9% 10 ML Syringe FLUSH PRN ×3 (01:12→11:49)
[2020-01-22] MEDS: metroNIDAZOLE/Normal Saline 500 MG in Premix Bag 1 BAG IV SCH ×2 (01:12→10:44)
[2020-01-22] MEDS: Clindamycin in 0.9 % Sod Chlor 600 MG in Premix Bag 1 BAG IV SCH ×4 (02:16→11:48)
[2020-01-22] MEDS: Lidocaine 4% 1 each Patch TOP SCH (07:19)
[2020-01-22] MEDS: Polyvinyl Alcohol 1.4% Ophth Soln 15 ML Bottle EYEBOTH SCH ×2 (07:19→11:49)
[2020-01-22] MEDS: Potassium Chloride 20 MEQ Tab.ER PO SCH (07:20)
[2020-01-22] MEDS: Sertraline 50 MG Tab PO SCH (07:20)
[2020-01-22] MEDS: Cholecalciferol (Vitamin D3) 25 MCG Tab PO SCH (07:20)
[2020-01-22] MEDS: Dextromethorphan/guaiFENesin 600-30 MG Tab.ER PO SCH (07:21)
[2020-01-22] MEDS: Bisacodyl 5 MG Tab PO SCH (07:31)
[2020-01-22] MEDS: Docusate Sodium 100 MG Cap PO SCH (07:31)
[2020-01-22 07:44] LABS: CHLORIDE,CL 107 mmol/L (98-107); SODIUM,NA 144 mmol/L (136-145)
--- NOTE | 2020-01-22 13:41 | PCM.DCSUM1 ---
Discharge Summary - Hospital Course Brief History: Patient admitted for continued treatment of right pneumonia/hypoxemia Diagnosis: Stroke: No - Discharge Data Discharge Date: 01/22/20 Discharge Disposition: Home, Self-Care 01 Condition: Good - Referral to Home Health Primary Care Physician: PCP None - Discharge Diagnosis/Problem(s) (1) Pneumonia SNOMED Code(s): 787357527 ICD Code: J18.9 - PNEUMONIA, UNSPECIFIED ORGANISM Status: Acute Priority: High Current Visit: Yes Onset Date: 07/19/19 Problem Details: Patient is afebrile with no leukocytosis. Treated initially with IM Rocephin and PO Zithromax at [facility] but was sent to ER due to worsening appearance on chest xray. Is concern for aspiration pneumonia as patient has had issues swallowing. Updated swallow study performed during stay. IV Clindamycin initiated for coverage of aspiration pneumonia. Negative blood cultures but one was felt to show contaminant. Chest xray shows some improvement today. 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 Also right pleural effusion. Some minor invovement left lower lobe. COVID-19 specimen collected during this hospitalization was negative. Note probable CHF component. Mild intermittent hypoxemia has improved. IV Zithromax was continued during the initial 24 hours of hospitalization then discontinued. Patient also received several doses of Flagyl. Unable to obtain a sputum specimen for culture and sensitivity. Will discharge patient back to [facility] on oral Clindamycin with close follow up by primary provider. May need referral to pulmonary medicine and cardiology if continues to have problems. Qualifiers: Pneumonia type: aspiration pneumonia Aspiration pneumonia type: unspecified Laterality: right Lung location: lower lobe of lung Qualified Code(s): J69.0 - Pneumonitis due to inhalation of food and vomit (2) Dysphagia SNOMED Code(s): 02931825, 337243799 ICD Code: R13.10 - DYSPHAGIA, UNSPECIFIED Status: Chronic Priority: Medium Current Visit: Yes Problem Details: As above. Aspiration precautions initiated. Speech therapy recommends pudding thick liquids/pureed diet. Patient not happy about this but says he understands. Qualifiers: Dysphagia type: unspecified Qualified Code(s): R13.10 - Dysphagia, unspecified (3) Pleural effusion, right SNOMED Code(s): 17582256 ICD Code: J90 - PLEURAL EFFUSION, NOT ELSEWHERE CLASSIFIED Status: Acute Priority: Low Current Visit: Yes Problem Details: Right pleural effusion noted. Improved after diuresis. (4) CHF (congestive heart failure) SNOMED Code(s): 26118203 ICD Code: I50.9 - HEART FAILURE, UNSPECIFIED Status: Chronic Priority: High Current Visit: Yes Problem Details: Elevated proBNP/changes on chest xray suggestive of CHF. Patient denies weight gain/fluid retention recently. Yesterday's chest xray shows some improvement of CHF. IV Lasix therapy on hold secondary to developing hypotension with symptomatic blood pressure of 90/55. Normalized over last night. Otherwise negative cardiac enzymes and EKG to this point. Note comfort care with no additional echocardiogram, etc. at this time. Qualifiers: Heart failure type: unspecified Heart failure chronicity: chronic Qualified Code(s): I50.9 - Heart failure, unspecified (5) Hypertension SNOMED Code(s): 04634503 ICD Code: I10 - ESSENTIAL (PRIMARY) HYPERTENSION Status: Chronic Priority: Medium Current Visit: Yes Problem Details: Stable during this hospitalization but noted to have some nonsymptomatic hypotension secondary to aggressive IV Lasix therapy. This led to Lopressor and Lasix being held. Much improved today. Qualifiers: Hypertension type: essential hypertension Qualified Code(s): I10 - Essential (primary) hypertension (6) Atrial fibrillation SNOMED Code(s): 34781265 ICD Code: I48.91 - UNSPECIFIED ATRIAL FIBRILLATION Status: Acute Priority: Medium Current Visit: Yes Problem Details: Chronic/stable. Not anticoagulated secondary to comfort care and risk factors. Telemetry started on 01/19 secondary to decreased Lopressor therapy on that day as above. D/C'd on 01/20 Qualifiers: Atrial fibrillation type: longstanding persistent Qualified Code(s): I48.11 - Longstanding persistent atrial fibrillation (7) Coronary artery disease SNOMED Code(s): 74020118 ICD Code: I25.10 - ATHSCL HEART DISEASE OF [place] CORONARY ARTERY W/O ANG PCTRS Status: Chronic Priority: High Current Visit: Yes Problem Details: As above. Qualifiers: Coronary Disease-Associated Artery/Lesion type: bypass graft [place] vs. transplanted heart: [place] heart Associated angina: without angina Qualified Code(s): I25.810 - Atherosclerosis of coronary artery bypass graft(s) without angina pectoris (8) COPD (chronic obstructive pulmonary disease) SNOMED Code(s): 88083907 ICD Code: J44.9 - CHRONIC OBSTRUCTIVE PULMONARY DISEASE, UNSPECIFIED Status: Acute Priority: High Current Visit: Yes Problem Details: Otherwise stable by history with aspiration pneumonia as above. Qualifiers: COPD type: chronic bronchitis Chronic bronchitis type: simple Qualified Code(s): J41.0 - Simple chronic bronchitis (9) PVD (peripheral vascular disease) SNOMED Code(s): 048712443 ICD Code: I73.9 - PERIPHERAL VASCULAR DISEASE, UNSPECIFIED Status: Chronic Priority: Low Current Visit: No (10) Sleep apnea SNOMED Code(s): 48923058 ICD Code: G47.30 - SLEEP APNEA, UNSPECIFIED Status: Chronic Priority: Low Current Visit: No Qualifiers: Sleep apnea type: unspecified type Qualified Code(s): G47.30 - Sleep apnea, unspecified (11) Anxiety SNOMED Code(s): 44944209 ICD Code: F41.9 - ANXIETY DISORDER, UNSPECIFIED Status: Chronic Priority: Low Current Visit: No Problem Details: Stable per history (12) Glaucoma SNOMED Code(s): 37261407 ICD Code: H40.9 - UNSPECIFIED GLAUCOMA Status: Chronic Priority: Low Current Visit: No Qualifiers: Glaucoma type: unspecified (13) Chronic indwelling Parsons catheter SNOMED Code(s): 899363932 ICD Code: Z97.8 - PRESENCE OF OTHER SPECIFIED DEVICES Status: Chronic Priority: Low Current Visit: No (14) Hyperlipidemia SNOMED Code(s): 76138832 ICD Code: E78.5 - HYPERLIPIDEMIA, UNSPECIFIED Status: Chronic Priority: Low Current Visit: No Qualifiers: Hyperlipidemia type: mixed hyperlipidemia Qualified Code(s): E78.2 - Mixed hyperlipidemia (15) Weakness SNOMED Code(s): 12987468 ICD Code: R53.1 - WEAKNESS Status: Chronic Priority: Low Current Visit: No (16) Anemia SNOMED Code(s): 647430029 ICD Code: D64.9 - ANEMIA, UNSPECIFIED Status: Acute Priority: Medium Current Visit: Yes Onset Date: 01/18/20 Problem Details: No evidence of acute GI bleed. Vitamin B-12 level and ferritin level were normal on 01/18. Note mildly decreased iron level however concomitant hypoalbuminemia. Observe for no w. Improved hemoglobin on 01/18. Qualifiers: Anemia type: unspecified type Qualified Code(s): D64.9 - Anemia, unspecified (17) UTI (urinary tract infection) SNOMED Code(s): 15178811 ICD Code: N39.0 - URINARY TRACT INFECTION, SITE NOT SPECIFIED Status: Acute Current Visit: No Problem Details: UA performed showed no evidence of UTI other than small amount of Leuk Est. UC shows growth of Staph Sciuri. May be colonized by this bacteria, and does not appear to be suffering any adverse effects at this time. Given that patient is already on Clindamycin and Flagyl, another 3rd antibiotic was felt to be risky for patient's kidneys given his age, as well as increasing possible CDiff. Given that UA was overall good in appearance, contacted patient's primary provider Haresh and will have her evaluate him for this after course of therapy finished for pneumonia. Qualifiers: Urinary tract infection type: site unspecified Hematuria presence: without hematuria Qualified Code(s): N39.0 - Urinary tract infection, site not specified - Patient Summary/Data Consults: Consultations 01/17/20 19:45 Consult to Speech Language Pathology [[employer]PERVISOR Evaluation and Treatment] [CONS] Routine 01/20/20 19:17 PT Evaluation and Treatment [CONS] Routine Hospital Course: Patient's chest xray appearance initially worsened during hospitalization. Treated with Clindamycin as it was suspected that he had aspiration-related pneumonia. Swallow study confirmed ongoing issues with patient's ability to swallow/recommendations made. Flagyl added to regimen. Lasix increased to promote diuresis of CHF component but led to hypotension. Lasix and BP med withheld and BP returned back to normal range. CHF/pneumonia/pleural effusion did appear improved on chest film. Hypoxemia also improved. Plan at this time is to discharge patient back to [facility] on oral Clindamycin. He will follow up with Haresh on Friday, two days from now, on tele-rounds and was updated by phone as to current discharge plan and ongoing concerns. May need Cardiology or Pulmonary medicine visits depending on clinical course on lung changes. K slightly elevated today. Recommend recheck on Friday. Will hold oral supplementation until recheck. - Patient Instructions Diet: Pureed ([place] thick liquids) Fluid Restriction: 2000 mL Activity: As Tolerated Other/Special Instructions: Hold potassium dose for three days and recheck level Friday. May restart potassium if level back to normal. Recommend repeat potassium check FridayJanuary 30 to make certain it is within normal range. Oxygen by NC 1-2 L prn hypoxemia to keep O2 sats above 89%. Follow up with Haresh on Virtual Rounds Friday. Continue Clindamycin for a week. May need to consider referral to pulmonary medicine if lung changes do not improve, and cardiology if CHF becomes more of a challenge. Have primary provider review + urine culture results again to decide if additional antibiotic treatment is needed or if this is a colonizer that can be monitored. Follow up otherwise as needed. - Discharge Plan *PRESCRIPTION DRUG MONITORING PROGRAM REVIEWED*: Not Applicable *COPY OF PRESCRIPTION DRUG MONITORING REPORT IN PATIENT JOE: Not Applicable Prescriptions/Med Rec: clindamycin HCL [Cleocin] 300 mg PO Q6H #28 cap Home Medications: Home Meds Albuterol [Ventolin HFA] 2 puff INH Q6HR PRN MDD Asthma 05/15/19 [History] Carboxymethylcellulose Sodium [Artificial Tears] 2 drop EYEBOTH QID@,,,05/15/19 [History] Cholecalciferol (Vitamin D3) [Vitamin D3] 25 mcg PO TID@,,05/15/19 [History] Furosemide [Lasix] 20 mg PO DAILY@0700 05/15/19 [History] Metoprolol Tartrate [Lopressor] 50 mg PO BID@07,199905/15/19 [History] Tiotropium [Spiriva Handihaler] 18 mcg INH BEDTIME 05/15/19 [History] Acetaminophen 1,000 mg PO Q6HR PRN 07/27/19 [History] Aspirin [Halfprin] 81 mg PO ASDIRECTED 07/27/19 [History] Lidocaine 5% [Lidoderm 5%] 1 patch TOP DAILY@0700 07/27/19 [History] Loperamide [Imodium] 2 mg PO ASDIRECTED PRN 07/27/19 [History] Mometasone Furoate [Asmanex 220 MCG] 1 puff INH BEDTIME 07/27/19 [History] Potassium Chloride 15 ml PO DAILY 07/27/19 [History] Bellamy Starch 1 applic TOP BID PRN 01/17/20 [History] Ipratropium/Albuterol Sulfate [Iprat-Albut 0.5-3(2.5) mg/3 ml] 3 ml IH BID@01/17/20 [History] Ipratropium/Albuterol Sulfate [Iprat-Albut 0.5-3(2.5) mg/3 ml] 3 ml IH Q4HR PRN 01/17/20 [History] Pectin [Throat Drops] 6 mg PO Q2HR PRN 01/17/20 [History] Sertraline [Zoloft] 50 mg PO DAILY@0700 01/17/20 [History] clindamycin HCL [Cleocin] 300 mg PO Q6H #28 cap 01/22/20 [Rx] Forms: ED Department Discharge Referrals: PCP,None [Primary Care Provider] - - Discharge Summary/Plan Comment DC Time >30 min.: Yes (waiting on ride from [facility]) - General Info Date of Service: 01/22/20 Admission Dx/Problem (Free Text: 1. Aspiration pneumonia 2. COPD 3. CHF 4. Atrial fibrillation Subjective Update: Patient feels like usual self. Would like to go home to [facility] Functional Status: Reports: Pain Controlled, Tolerating Diet, Ambulating, Urinating. Denies: New Symptoms - Review of Systems General: Reports: No Symptoms HEENT: Reports: Glasses Pulmonary: Reports: Cough (mild). Denies: Shortness of Breath, Pleuritic Chest Pain, Sputum, Hemoptysis, Wheezing Cardiovascular: Denies: Chest Pain, Palpitations, Dyspnea on Exertion, Orthopnea, Lightheadedness Gastrointestinal: Reports: No Symptoms Genitourinary: Reports: Other (no acute changes) Musculoskeletal: Reports: Other (no acute changes) Skin: Reports: Other (no acute changes) Neurological: Reports: No Symptoms Psychiatric: Reports: No Symptoms - Patient Data Vitals - Most Recent: Last Vital Signs Temp 36.8 C 01/22/20 07:17 Pulse 76 01/22/20 07:17 Resp 20 01/22/20 07:17 BP 116/61 01/22/20 07:17 Pulse Ox 95 01/22/20 07:17 Weight - Most Recent: 73.482 kg I&O - Last 24 hours: Intake & Output 01/21/20 01/22/20 01/22/20 22:59 06:59 14:59 Intake Total 440 300 240 Output Total 800 300 Balance -360 0 240 Lab Results - Last 24 hrs: Laboratory Results - last 24 hr 01/22/20 01/22/20 Range/Units 07:25 07:25 WBC 5.5 (4.0-10.2) K/uL RBC 4.86 (4.33-5.41) M/uL Hgb 13.8 (13.1-16.8) g/dL Hct 44.2 (39.0-49.0) % MCV 90.9 (84.0-98.0) fL MCH 28.4 (28.2-33.3) pg MCHC 31.2 L (31.7-36.0) g/dL RDW 16.1 H (11.2-14.1) % Plt Count 205 (150-350) K/uL Neut % (Auto) 70.0 (45.0-80.0) % Lymph % (Auto) 15.2 (10.0-50.0) % Lynn % (Auto) 7.5 (2.0-14.0) % Eos % (Auto) 6.4 H (0.0-5.0) % Baso % (Auto) 0.9 (0.0-2.0) % Neut # (Auto) 3.82 (1.40-7.00) K/uL Lymph # (Auto) 0.83 (0.50-3.50) K/uL Lynn # (Auto) 0.41 (0.00-1.00) K/uL Eos # (Auto) 0.35 (0.00-0.50) K/uL Baso # (Auto) 0.05 (0.00-0.20) K/uL Sodium 144 (136-145) mmol/L Potassium 5.6 H* D (3.5-5.1) mmol/L Chloride 107 (98-107) mmol/L Carbon Dioxide 34.2 H (21.0-32.0) mmol/L BUN 33 H (7-18) mg/dL Creatinine 0.75 (0.51-1.17) mg/dL Est Cr Clr Drug Dosing 67.16 mL/min Estimated GFR (MDRD) > 60 mL/min Glucose 114 H (74-106) mg/dL Calcium 8.4 L (8.5-10.1) mg/dL [facility]PRE[facility] Results - Last 24 hrs: Microbiology 01/17/20 16:55 Aerobic Blood Culture - Preliminary Blood - Venous - Lab Draw NO GROWTH AFTER 4 DAYS Anaerobic Blood Culture - Preliminary NO GROWTH AFTER 4 DAYS 01/17/20 16:49 Aerobic Blood Culture - Final Blood - Venous Gram Negative Rods Staph Sp, Agglutination Neg Anaerobic Blood Culture - Preliminary NO GROWTH AFTER 4 DAYS Med Orders - Current: Current Medications Acetaminophen (Tylenol Extra Strength) 1,000 mg PO Q6HR PRN PRN Reason: Pain Albuterol/Ipratropium (Duoneb 3.0-0.5 Mg/3 Ml) 3 ml NEB Q6HRRT [facility] Last Admin: 01/22/20 07:21 Dose: 3 ml Documented by: Artificial Tears (Liquitears 1.4% Ophth Soln) 0 ml EYEBOTH QID@07,,, [facility] Last Admin: 01/22/20 11:49 Dose: 2 drop Documented by: Aspirin (Halfprin) 81 mg PO MoWeFr@0700 [facility] Last Admin: 01/21/20 08:30 Dose: 81 mg Documented by: Bisacodyl (Dulcolax) 5 mg PO DAILY [facility] Last Admin: 01/22/20 07:31 Dose: Not Given Documented by: Cholecalciferol (Vitamin D3) 25 mcg PO TID@,, [facility] Last Admin: 01/22/20 07:20 Dose: 25 mcg Documented by: Docusate Sodium (Colace) 100 mg PO BID [facility] Last Admin: 01/22/20 07:31 Dose: Not Given Documented by: Guaifenesin/Dextromethorphan (Mucinex Dm Er 600-30 Mg) 1 tab PO BID [facility] Last Admin: 01/22/20 07:21 Dose: 1 tab Documented by: Clindamycin/Sodium Chloride (600 mg/ Premix) 50 mls @ 100 mls/hr IV Q8H [facility] Last Admin: 01/22/20 11:48 Dose: 100 mls/hr Documented by: Metronidazole 500 mg/ Premix 100 mls @ 100 mls/hr IV Q8H [facility] Last Admin: 01/22/20 10:44 Dose: 100 mls/hr Documented by: Lidocaine (Aspercreme 4%) 1 each TOP DAILY@0700 [facility] Last Admin: 01/22/20 07:19 Dose: 1 each Documented by: Loperamide HCl (Imodium Ad) 2 mg PO SEECOMMENT PRN PRN Reason: DIARRHEA Magnesium Hydroxide (Milk Of Magnesia) 30 ml PO DAILY PRN PRN Reason: Constipation Last Admin: 01/19/20 08:28 Dose: 30 ml Documented by: Metoprolol Tartrate (Lopressor) 25 mg PO BID [facility] Last Admin: 01/21/20 10:49 Dose: Not Given Documented by: Mometasone Furoate (Asmanex 220 Mcg) 1 puff INH BEDTIME [facility] Last Admin: 01/21/20 19:14 Dose: 1 puff Documented by: Potassium Chloride (Klor-Con M20) 20 meq PO BID [facility] Last Admin: 01/22/20 07:20 Dose: 20 meq Documented by: Sertraline HCl (Zoloft) 50 mg PO DAILY@0700 [facility] Last Admin: 01/22/20 07:20 Dose: 50 mg Documented by: Sodium Chloride (Saline Flush) 10 ml FLUSH ASDIRECTED PRN PRN Reason: Keep Vein Open Last Admin: 01/22/20 11:49 Dose: 10 ml Documented by: Sodium Chloride (Saline Flush) 10 ml FLUSH ASDIRECTED PRN PRN Reason: Keep Vein Open Last Admin: 01/19/20 19:44 Dose: 10 ml Documented by: Tiotropium [place] (Spiriva Handihaler) 18 mcg INH BEDTIME [facility] Last Admin: 01/21/20 19:15 Dose: 1 inh Documented by: Discontinued Medications Docusate Sodium (Colace) 100 mg PO BID PRN PRN Reason: Constipation Last Admin: 01/20/20 03:06 Dose: 100 mg Documented by: Furosemide (Lasix) 20 mg IV BID [facility] Last Admin: 01/19/20 08:30 Dose: 20 mg Documented by: Furosemide (Lasix) 40 mg IVPUSH Q8H [facility] Last Admin: 01/20/20 04:16 Dose: 40 mg Documented by: Furosemide (Lasix) 40 mg IVPUSH Q12H [facility] Last Admin: 01/21/20 06:17 Dose: 40 mg Documented by: Azithromycin 500 mg/ Sodium (Chloride) 250 mls @ 250 mls/hr IV Q24H [facility] Last Admin: 01/17/20 21:56 Dose: 250 mls/hr Documented by: Magnesium Citrate (Citrate Of Magnesia) 296 ml PO ONETIME ONE Stop: 01/20/20 08:57 Last Admin: 01/20/20 09:36 Dose: 296 ml Documented by: Metoprolol Tartrate (Lopressor) 50 mg PO BID@0700,1999 [facility] Last Admin: 01/19/20 19:56 Dose: Not Given Documented by: Non-Formulary Medication (Potassium Chloride) 15 ml PO DAILY [facility] Polyethylene Glycol (Miralax) 17 gm PO ONETIME ONE Stop: 01/19/20 11:59 Last Admin: 01/19/20 13:12 Dose: 17 gm Documented by: Polyethylene Glycol (Miralax) 17 gm PO ONETIME ONE Stop: 01/20/20 08:57 Last Admin: 01/20/20 09:36 Dose: 17 gm Documented by: Potassium Chloride (Potassium Chloride Solution) 20 meq PO DAILY [facility] Last Admin: 01/19/20 08:27 Dose: 20 meq Documented by: Potassium Chloride (Klor-Con M20) 20 meq PO TID [facility] Last Admin: 01/20/20 07:58 Dose: 20 meq Documented by: - Exam General: Reports: Alert, Oriented, Cooperative, No Acute Distress HEENT: Reports: Pupils Equal, Pupils Reactive, EOMI, Mucous Membr. Moist/[place] Neck: Reports: Supple Lungs: Reports: Normal Respiratory Effort, Rales (mild/bases). Denies: Rub, Stridor, Wheezing Cardiovascular: Reports: No Murmurs, Irregular Rhythm GI/Abdominal Exam: Normal Bowel Sounds, Soft, Non-Tender, No Distention (Male) Exam: Deferred Rectal (Males) Exam: Deferred Back Exam: Denies: CVA Tenderness (L), CVA Tenderness (R), Muscle Spasm Extremities: Non-Tender, Normal Capillary Refill Skin: Reports: Warm, Dry Neurological: Reports: No New Focal Deficit Psy/Mental Status: Reports: Alert, Normal Affect, Normal Mood
== END 2020-01-22 15:25 | disposition home or self-care (01) | DRG 178 ==
LOC: LL.ED 16:17 → UNDOADMIN 17:25 → LL.MS 17:25
PROVIDERS: ADMIT Emergency Medicine; ATTEND Family Medicine
DX: J18.9 Pneumonia, unspecified organism (principal); J44.9 Chronic obstructive pulmonary disease, unspecified; J69.0 Pneumonitis due to inhalation of food and vomit; Z98.890 Other specified postprocedural states; I48.11 Longstanding persistent atrial fibrillation; I25.810 Atherosclerosis of coronary artery bypass graft(s) without angina pectoris; N39.0 Urinary tract infection, site not specified; I48.91 Unspecified atrial fibrillation; I50.42 Chronic combined systolic (congestive) and diastolic (congestive) heart failure; I11.0 Hypertensive heart disease with heart failure; Z20.828 Contact with and (suspected) exposure to other viral communicable diseases; J41.0 Simple chronic bronchitis; I73.9 Peripheral vascular disease, unspecified; I08.0 Rheumatic disorders of both mitral and aortic valves; G47.30 Sleep apnea, unspecified; K59.09 Other constipation; F41.9 Anxiety disorder, unspecified; R33.8 Other retention of urine; H40.9 Unspecified glaucoma; Z93.6 Other artificial openings of urinary tract status; E78.5 Hyperlipidemia, unspecified; D64.9 Anemia, unspecified; H91.90 Unspecified hearing loss, unspecified ear; E11.9 Type 2 diabetes mellitus without complications; H54.7 Unspecified visual loss; H04.129 Dry eye syndrome of unspecified lacrimal gland; H91.13 Presbycusis, bilateral; I25.10 Atherosclerotic heart disease of native coronary artery without angina pectoris; I95.9 Hypotension, unspecified; E78.00 Pure hypercholesterolemia, unspecified; E11.51 Type 2 diabetes mellitus with diabetic peripheral angiopathy without gangrene; I25.5 Ischemic cardiomyopathy; N40.1 Benign prostatic hyperplasia with lower urinary tract symptoms; N39.498 Other specified urinary incontinence; N31.9 Neuromuscular dysfunction of bladder, unspecified; M19.90 Unspecified osteoarthritis, unspecified site; F32.9 Major depressive disorder, single episode, unspecified; E55.9 Vitamin D deficiency, unspecified; L82.1 Other seborrheic keratosis; Z98.41 Cataract extraction status, right eye; Z97.8 Presence of other specified devices; Z79.899 Other long term (current) drug therapy; Z79.82 Long term (current) use of aspirin; Z97.4 Presence of external hearing-aid; Z95.1 Presence of aortocoronary bypass graft; Z87.440 Personal history of urinary (tract) infections; Z86.73 Personal history of transient ischemic attack (TIA), and cerebral infarction without residual deficits; Z90.49 Acquired absence of other specified parts of digestive tract
CPT/HCPCS: 36415; 71045; 71046; 74230; 80048; 80053; 81001; 82550; 82553; 82607; 82728; 83540; 83550; 83605; 83735; 83880; 84484; 84550; 85025; 85379; 87040; 87086; 87088; 87186; 92526-GN; 92610-GN; 92611-GN; 93005; 94640; 97116-GP; 97161-GP; 97530-GP; 99285-25; A9270-GY; J0456; J1940; J3490; J7050; J7620-GY; U0002

== ENCOUNTER 2020-08-25 16:33 | Emergency (ER) | payer MEDICARE, BC ==
--- NOTE | 2020-08-25 16:37 | EDM.PDOC ---
ED HPI GENERAL MEDICAL PROBLEM - General Chief Complaint: Respiratory Problem Stated Complaint: Cough, hypoxia Time Seen by Provider: 08/25/20 16:35 Source of Information: Reports: Patient, [facility] Records, Old Records ([facility] chart/EMR) History Limitations: Reports: No Limitations - History of Present Illness INITIAL COMMENTS - FREE TEXT/NARRATIVE: The patient was brought to the emergency room via transport vehicle from in [place] for evaluation of progressive hypoxia during the last 24 hours with O2 sat of only 83% on room air prior to his transfer to this facility. The patient is normally on nocturnal oxygen only with progressive yellowish-brownish productive cough during the last several days with possible mild hemoptysis earlier today and some additional wheezing. The patient was transferred to this facility on O2 with 4 L/min by nasal cannula with no other treatment prior to arrival. He denies any known exposure to infection with COVID-19 test conducted earlier today with results pending, however his COVID-19 test earlier in the week was negative. The patient also did receive his second COVID-19 immunization earlier today. The patient denies any chest pain/pressure, heart flutter, dizziness, orthostasis, orthopnea, diaphoresis, paresthesias, recent decreased exercise tolerance, or any other anginal-type symptoms. No recent history of abdominal pain, heartburn, nausea, diarrhea, melena, gross hematochezia, or any food intolerance, including fatty foods, etc. with normal bowel movement earlier this afternoon. He denies any gross hematuria, colic, or other UTI symptoms. No apparent current pain or other discomfort. Onset: Gradual, Unknown/Unsure Duration: Getting Worse, Other (No pain) Location: Reports: Other (No pain) Quality: Reports: Same as Previous Episode Improves with: Reports: None Worsens with: Reports: None Context: Reports: Other (As above). Denies: Sick Contact, Trauma Associated Symptoms: Reports: Cough, cough w sputum (As above), Shortness of Breath (Borderline). Denies: Confusion, Chest Pain, Diaphoresis, Fever/Chills, Headaches, Loss of Appetite, Malaise, Nausea/Vomiting, Rash, Seizure, Syncope Treatments COURTROOM REPORTER: Reports: Oxygen denies Pain Score (Numeric/FACES): 0 - Related Data Allergies Allergy/AdvReac Type Severity Reaction Status Date / Time No Known Allergies Allergy Verified 08/25/20 17:33 Home Meds: Home Meds Albuterol [Ventolin HFA] 2 puff INH Q6HR PRN MDD Asthma 05/15/19 [History] Carboxymethylcellulose Sodium [Artificial Tears] 2 drop EYEBOTH QID@07,12,,05/15/19 [History] Cholecalciferol (Vitamin D3) [Vitamin D3] 25 mcg PO TID@,,05/15/19 [History] Furosemide [Lasix] 20 mg PO DAILY@0705/15/19 [History] Metoprolol Tartrate [Lopressor] 25 mg PO BID@699,199905/15/19 [History] Tiotropium [Spiriva Handihaler] 18 mcg INH BEDTIME 05/15/19 [History] Acetaminophen 1,000 mg PO Q6HR PRN 07/27/19 [History] Aspirin [Halfprin] 81 mg PO ASDIRECTED 07/27/19 [History] Lidocaine 5% [Lidoderm 5%] 1 patch TOP DAILY@0707/27/19 [History] Loperamide [Imodium] 2 mg PO ASDIRECTED PRN 07/27/19 [History] Mometasone Furoate [Asmanex 220 MCG] 1 puff INH BEDTIME 07/27/19 [History] Peck Starch 1 applic TOP BID PRN 01/17/20 [History] Ipratropium/Albuterol Sulfate [Iprat-Albut 0.5-3(2.5) mg/3 ml] 3 ml IH BID@,01/17/20 [History] Ipratropium/Albuterol Sulfate [Iprat-Albut 0.5-3(2.5) mg/3 ml] 3 ml IH Q4HR PRN 01/17/20 [History] Sertraline [Zoloft] 50 mg PO DAILY@0700 01/17/20 [History] Pectin [Throat Drops] 6 mg MM Q4H PRN 08/25/20 [History] Potassium Chloride [Klor-Con M20] 20 meq PO DAILY 08/25/20 [History] Past Medical History HEENT History: Reports: Cataract, Glaucoma, Hard of Hearing, Impaired Vision, Other (See Below). Denies: Allergic Rhinitis, Macular Degeneration, Otitis Media, Retinal Detachment Other HEENT History: The patient wears glasses with an occluded right glasses lens secondary to diplopia with known anisocoria. Dry eye syndrome. 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 Chronic tinnitus. History of epistaxis with cauterization. Cardiovascular History: Reports: Afib, Arrhythmia, Bypass, CAD, Cardiomyopathy, Heart Failure, Heart Murmur, High Cholesterol, Hypertension, PVD, Syncope, Other (See Below). Denies: Aneurysm, Blood Clots/VTE/DVT, SC, Pacemaker, Pulmonary Hypertension Other Cardiovascular History: Dyslipidemia. Aortic valve and mitral valve insufficiency. 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 Recurrent/chronic right pleural effusion. Varicose veins. PVCs. Respiratory History: Reports: Asthma, Bronchitis, Recurrent, COPD, Intubation, Previous, Pneumonia, Recurrent, Sleep Apnea, Other (See Below). Denies: PE, Pneumothorax, Pulmonary Fibrosis, TB Other Respiratory History: Recurrent aspiration pneumonia. Gastrointestinal History: Reports: Bowel Obstruction, Chronic Constipation, Chronic Diarrhea, Fecal Incontinence, Hemorrhoids, Other (See Below). Denies: Celiac Disease, Cholelithiasis, Colon Polyp, Gastritis, GERD, GI Bleed, Hepatitis, Hiatal Hernia, Inflammatory Bowel Disease, Irritable Bowel Syndrome, Jaundice, Pancreatitis, PUD Other Gastrointestinal History: Dysphagia. Left inguinal hernia. Recurrent previous ileus and bowel obstruction last on 07/19/2019. Genitourinary History: Reports: BPH, Neurogenic Bladder, Prostate Disorder (LR 100), Retention, Urinary, Urinary Incontinence, UTI, Recurrent, Other (See Below). Denies: Acute Renal Failure, Chronic Renal Insuffiency, Renal Calculus, STD Other Genitourinary History: Neurogenic bladder with chronic suprapubic catheter therapy. Musculoskeletal History: Reports: Arthritis, Fracture, Osteoarthritis. Denies: Amputation, Back Pain, Chronic, Fibromyalgia, Gout, Neck Pain, Chronic, Osteoporosis, RA, SLE Other Musculoskeletal History: Left shoulder fracture. Bilateral foot pain. Neurological History: Reports: CVA, Other (See Below). Denies: Alzheimers Disease, Cerebral Aneurysms, Concussion, Headaches, Chronic, Head Trauma, Migraines, MS, Neuropathy, Diabetic, Neuropathy, Peripheral, Parkinson's, Seizure, TIA, Vertigo Other Neuro History: Subarachnoid hemorrhage with LOC and requires a cane for walking. Psychiatric History: Reports: Anxiety, Depression. Denies: Abuse, Victim of, ADD, ADHD, Addiction, Psych Hospitalization(s), PTSD, Suicide Attempt, Suicidal Ideation Endocrine/Metabolic History: Reports: Diabetes, Type II, Obesity/BMI 30+, Vitamin D Deficiency. Denies: Diabetes, Type I, Diabetes Mellitus, Type 3c, Hypothyroidism, IDDM Other Endocrine/Metabolic History: Prediabetes. Hypokalemia. Hypocalcemia. Hypoalbuminemia. Hematologic History: Reports: Anemia, Iron Deficiency, Other (See Below) Other Hematologic History: Intermittent mild thrombocytopenia. Immunologic History: Reports: None. Denies: AIDS, HIV, SLE Oncologic (Cancer) History: Reports: None. Denies: Basal Cell Carcinoma, Bladder, Colon, Hodgkin's Lymphoma, Leukemia, Lung, Lymphoma, Malignant Melanoma, Non-Hodgkin's Lymphoma, Squamous Cell Carcinoma Dermatologic History: Reports: Other (See Below) Other Dermatologic History: Seborrheic keratosis. Xerosis cutis. Venous stasis dermatitis. Dry skin. - Infectious Disease History Infectious Disease History: Reports: Chicken Pox. Denies: C-Difficile, Measles, Meningitis, Mononucleosis, MRSA, Mumps, Novel Coronavirus, Pertussis (Whooping Cough), Rheumatic Fever, Rubella, Scarlet Fever, Shingles, TB, VRE - Past Surgical History Head Surgeries/Procedures: Reports: None HEENT Surgical History: Reports: Cataract Surgery, Oral Surgery, Other (See Below). Denies: Adenoidectomy, Eye Surgery, Laser Surgery, LASIK, Myringotomy w Tube(s), Naso-Sinus Surgery, Tonsillectomy Other HEENT Surgeries/Procedures: Right-sided cataract surgery. Multiple teeth extractions. Cardiovascular Surgical History: Reports: Coronary Artery Bypass, Other (See Below). Denies: Varicose Respiratory Surgical History: Reports: None. Denies: Thoracentesis GI Surgical History: Reports: Appendectomy, Cholecystectomy, Other (See Below) Other GI Surgeries/Procedures: Appendectomy at age 6. Cholecystectomy in about 2017. Male Surgical History: Reports: Suprapubic Catheter Placement Endocrine Surgical History: Reports: None. Denies: Thyroid Biopsy Neurological Surgical History: Reports: None Musculoskeletal Surgical History: Reports: Shoulder Surgery, Other (See Below) Other Musculoskeletal Surgeries/Procedures:: Unknown type of left shoulder surgeryunsuccessful. Oncologic Surgical History: Reports: None Dermatological Surgical History: Reports: None - Past Imaging History Past Imaging History: Reports: CAT Scan (CT of the abdomen and pelvis with IV contrast on 07/10/2019 at the [facility] Swallow Study (Positive on 01/20/2020. Previous evaluation on 07/12/2019 at the [facility].) Social & Family History - Family History Family Medical History: No Pertinent Family History - Caffeine Use Caffeine Use: Reports: None - Living Situation & Occupation Living situation: Reports: Extended Care Facility ( in [facility]) ED ROS GENERAL - Review of Systems Review Of Systems: Comprehensive ROS is negative, except as noted in HPI. ED EXAM, GENERAL - Physical Exam Exam: See Below Exam Limited By: No Limitations General Appearance: Alert, WD/WN, No Apparent Distress Eye Exam: Bilateral Eye: EOMI, Normal Inspection (No vertigo or nystagmus. The patient is wearing glasses.), Other (Stable from previous exam bilateral anisocoria with right pupil 6 mm in diameter and left pupil 3 mm in diameter.) Ears: Normal External Exam, Normal Canal, Normal TMs, Hearing Loss (Mild bilateral presbycusis with the patient not having his hearing aids today) Nose: Normal Mucosa, No Blood, Nasal Drainage, Clear Rhinorrhea Throat/Mouth: Normal Gums, Normal Oropharynx, Normal Voice, No Airway Compromise. No: Normal Teeth (Multiple missing teeth with no acute caries or abscess), Dysphagia, Perioral Cyanosis Head: Atraumatic, Normocephalic, Other (1 cm in length benign sebaceous cyst in the superior mid forehead). No: Facial Swelling, Facial Tenderness, Sinus Tenderness Neck: Supple, Non-Tender, Full Range of Motion, Carotid Bruit (Mild bilateral carotid bruits). No: Lymphadenopathy (L), Lymphadenopathy (R), Thyromegaly Respiratory/Chest: No Respiratory Distress, No Accessory Muscle Use, Chest Non- Tender, Decreased Breath Sounds (Right base), Rales (Mild to moderate diffuse bilateral, right greater than left), Rhonchi (Occasional bilateral), Wheezing (Occasional diffuse bilateral) Cardiovascular: Normal Peripheral Pulses, No Gallop, No JVD, No Murmur, No Rub, Tachycardia, Irregularly Irregular. No: No Edema (Dependent edema as below), Gallop/S3, Gallop/S4, Friction Rub Peripheral Pulses: 2+: Radial (L), Radial (R), Dorsalis Pedis (L), Dorsalis Pedis (R) GI/Abdominal: Normal Bowel Sounds, Soft, Non-Tender, No Organomegaly, No Distention, No Abnormal Bruit, No Mass, Pelvis Stable, Hernia (Stable moderate left indirect inguinal hernia.), Other (Suprapubic catheter. Obese.). No: Guarding (Male) Exam: Deferred Rectal (Males) Exam: Deferred Back Exam: Normal Inspection, Full Range of Motion. No: CVA Tenderness (L), CVA Tenderness (R), Muscle Spasm Extremities: Normal Range of Motion, Non-Tender, Normal Capillary Refill, Pedal Edema (Trace bilateral pedal/pretibial edema), Limited Range of Motion (Chronic left shoulder secondary to previous injury.), Other (Moderate to severe varicose veins in the left adductor region.). No: Adelia's Sign Neurological: Alert, Oriented, CN II-XII Intact, Normal Cognition, Normal Gait, Normal Reflexes (Negative Babinski's), No Motor/Sensory Deficits Psychiatric: Normal Affect, Normal Mood Skin Exam: Warm, Dry, Intact, Normal Color, No Rash, Other (Stable moderate to severe venous stasis dermatitis of the anterior tibial regions bilaterally.). No: Diaphoretic, Wound/Incision Lymphatic: No Adenopathy Course - Vital Signs Last Recorded V/S: Last Vital Signs Temp 37.1 C 08/25/20 18:51 Pulse 131 H 08/25/20 18:51 Resp 23 H 08/25/20 18:51 BP 118/79 08/25/20 18:51 Pulse Ox 93 L 08/25/20 18:05 Vital Signs - 24 hr 08/25/20 08/25/20 08/25/20 16:37 17:06 17:31 Temperature [ 37.6 C 37.6 C Temporal] Pulse, 113 H 108 H Peripheral [ Apical] Pulse, 105 H Peripheral [ Left Pulse Oximetry] Respiratory 24 H 32 H 30 H Rate Blood Pressure 101/52 L 116/65 98/74 [Left Upper Arm ] Blood Pressure [Right Upper Arm] O2 Sat by Pulse 81 L 95 99 Oximetry 08/25/20 08/25/20 08/25/20 17:44 18:05 18:51 Temperature [ 37.1 C 37.1 C Temporal] Pulse, 122 H 117 H 131 H Peripheral [ Apical] Pulse, Peripheral [ Left Pulse Oximetry] Respiratory 30 H 23 H 23 H Rate Blood Pressure [Left Upper Arm ] Blood Pressure 100/58 L 118/79 [Right Upper Arm] O2 Sat by Pulse 95 93 L Oximetry - Orders/Labs/Meds Orders: Active Orders 24 hr Category Date Time Status Communication Order [RC] ROUTINE Care 08/25/20 16:38 Active Oxygen Therapy, ED [RC] CONTINUOUS Care 08/25/20 16:38 Active Peripheral IV Care [RC] . DIRECTED Care 08/25/20 16:39 Active Pulse Oximetry [RC] CONTINUOUS Care 08/25/20 16:38 Active Up With Assistance [RC] ASDIRECTED Care 08/25/20 16:38 Active Nothing Per Oral Diet [DIET] Diet 08/25/20 Breakfast Active Chest 1V Frontal [CR] Stat Exams 08/25/20 16:38 Taken CULTURE BLOOD [BC] Stat Lab 08/25/20 16:50 Received CULTURE BLOOD [BC] Stat Lab 08/25/20 16:55 Received CULTURE SPUTUM + SMEAR [RM] Urgent Lab 08/25/20 17:45 Received Lactated Ringers [Ringers, Lactated] 1,000 ml Med 08/25/20 19:15 Active IV ASDIRECTED Sodium Chloride 0.9% [Saline Flush] Med 08/25/20 16:37 Active 10 ml FLUSH ASDIRECTED PRN Blood Culture x2 Reflex Set [OM.PC] Stat Oth 08/25/20 16:38 Ordered Obtain Past Medical Record [OM.PC] Stat Oth 08/25/20 16:38 Active Peripheral IV Insertion Adult [OM.PC] Stat Oth 08/25/20 16:38 Ordered Resuscitation Status Routine Resus Stat 08/25/20 16:37 Ordered Medication Orders Lactated Ringer's (Ringers, Lactated) 1,000 mls @ 100 mls/hr IV ASDIRECTED VINCE Sodium Chloride (Saline Flush) 10 ml FLUSH ASDIRECTED PRN PRN Reason: Keep Vein Open Last Admin: 08/25/20 18:01 Dose: 10 ml Documented by: RANDY Labs: Laboratory Tests 08/25/20 08/25/20 08/25/20 Range/Units 16:55 16:55 16:55 WBC 6.1 (4.0-10.2) K/uL RBC 4.39 (4.33-5.41) M/uL Hgb 13.0 L (13.1-16.8) g/dL Hct 40.6 (39.0-49.0) % MCV 92.5 (84.0-98.0) fL MCH 29.6 (28.2-33.3) pg MCHC 32.0 (31.7-36.0) g/dL RDW 14.4 H (11.2-14.1) % Plt Count 173 (150-350) K/uL Neut % (Auto) 81.9 H (45.0-80.0) % Lymph % (Auto) 9.0 L (10.0-50.0) % [place] % (Auto) 6.7 (2.0-14.0) % Eos % (Auto) 2.1 (0.0-5.0) % Baso % (Auto) 0.3 (0.0-2.0) % Neut # (Auto) 4.97 (1.40-7.00) K/uL Lymph # (Auto) 0.55 (0.50-3.50) K/uL [place] # (Auto) 0.41 (0.00-1.00) K/uL Eos # (Auto) 0.13 (0.00-0.50) K/uL Baso # (Auto) 0.02 (0.00-0.20) K/uL PT 10.8 (9.5-12.0) SEC INR 1.1 APTT 25.5 (24.5-32.8) SEC Sodium 141 (136-145) mmol/L Potassium 4.9 (3.5-5.1) mmol/L Chloride 105 (98-107) mmol/L Carbon Dioxide 28.1 (21.0-32.0) mmol/L BUN 30 H (7-18) mg/dL Creatinine 0.77 (0.51-1.17) mg/dL Est Cr Clr Drug Dosing 63.29 mL/min Estimated GFR (MDRD) > 60 mL/min Glucose 138 H (74-106) mg/dL Lactic Acid (0.4-2.0) mmol/L Calcium 8.5 (8.5-10.1) mg/dL Magnesium 1.8 (1.8-2.4) mg/dL Total Bilirubin 0.9 (0.2-1.0) mg/dL AST 15 (15-37) U/L ALT 14 (12-78) U/L Alkaline Phosphatase 101 (46-116) IU/L Creatine Kinase 38 (26-308) U/L Creatine Kinase Index 1.6 (0.0-2.5) % CK-MB (CK-2) 0.60 (0.00-3.60) ng/mL Troponin I 0.000 (0.000-0.056) ng/mL NT-Pro-B Natriuret Pep 2373 H (0-125) pg/mL Total Protein 7.2 (6.4-8.2) g/dL Albumin 2.9 L (3.4-5.0) g/dL TSH, Ultra Sensitive 1.233 (0.358-3.740) mIU/mL 08/25/20 Range/Units 16:55 WBC (4.0-10.2) K/uL RBC (4.33-5.41) M/uL Hgb (13.1-16.8) g/dL Hct (39.0-49.0) % MCV (84.0-98.0) fL MCH (28.2-33.3) pg MCHC (31.7-36.0) g/dL RDW (11.2-14.1) % Plt Count (150-350) K/uL Neut % (Auto) (45.0-80.0) % Lymph % (Auto) (10.0-50.0) % [place] % (Auto) (2.0-14.0) % Eos % (Auto) (0.0-5.0) % Baso % (Auto) (0.0-2.0) % Neut # (Auto) (1.40-7.00) K/uL Lymph # (Auto) (0.50-3.50) K/uL [place] # (Auto) (0.00-1.00) K/uL Eos # (Auto) (0.00-0.50) K/uL Baso # (Auto) (0.00-0.20) K/uL PT (9.5-12.0) SEC INR APTT (24.5-32.8) SEC Sodium (136-145) mmol/L Potassium (3.5-5.1) mmol/L Chloride (98-107) mmol/L Carbon Dioxide (21.0-32.0) mmol/L BUN (7-18) mg/dL Creatinine (0.51-1.17) mg/dL Est Cr Clr Drug Dosing mL/min Estimated GFR (MDRD) mL/min Glucose (74-106) mg/dL Lactic Acid 2.1 H (0.4-2.0) mmol/L Calcium (8.5-10.1) mg/dL Magnesium (1.8-2.4) mg/dL Total Bilirubin (0.2-1.0) mg/dL AST (15-37) U/L ALT (12-78) U/L Alkaline Phosphatase (46-116) IU/L Creatine Kinase (26-308) U/L Creatine Kinase Index (0.0-2.5) % CK-MB (CK-2) (0.00-3.60) ng/mL Troponin I (0.000-0.056) ng/mL NT-Pro-B Natriuret Pep (0-125) pg/mL Total Protein (6.4-8.2) g/dL Albumin (3.4-5.0) g/dL TSH, Ultra Sensitive (0.358-3.740) mIU/mL Blood cultures x2 were collected Sputum for Gram stain, culture and sensitivity collected Meds: Medications Generic Name Dose Route Start Last Admin Trade Name Freq PRN Reason Stop Dose Admin Lactated Ringer's 1,000 mls @ 100 mls/hr 08/25/20 19:15 Ringers, Lactated IV ASDIRECTED VINCE Sodium Chloride 10 ml 08/25/20 16:37 08/25/20 18:01 Saline Flush FLUSH 10 ml ASDIRECTED PRN Administration Keep Vein Open Discontinued Medications Generic Name Dose Route Start Last Admin Trade Name Freq PRN Reason Stop Dose Admin Furosemide 60 mg 08/25/20 17:40 08/25/20 18:00 Lasix IVPUSH 08/25/20 17:41 60 mg NOW ONE Administration Ceftriaxone Sodium 1 gm/ 100 mls @ 200 mls/hr 08/25/20 16:53 08/25/20 17:28 Sodium Chloride IV 08/25/20 17:22 200 mls/hr ONETIME ONE Administration Metronidazole 500 mg/ Premix 100 mls @ 100 mls/hr 08/25/20 16:53 08/25/20 17 :53 IV 08/25/20 17:52 100 mls/hr ONETIME ONE Administration - Radiology Interpretation Free Text/Narrative:: site monitor shows atrial fibrillation with mild tachycardia with heart rate in the 110s to 120s with occasional uniform PVCs l Chest x-ray, portable, shows mild cardiomegaly with moderate COPD and pulmonary fibrotic changes with probable pulmonary hypertension and/or mild mostly centralized CHF with relatively stable chronic moderate right pleural effusion. Additional consolidation in the right lower lobe with diffuse right-sided nodular infiltrates. No pneumothorax. Note status post medial sternotomy with additional surgical clips noted in the left upper quadrant. Mild aortic valve calcification. Official x-ray report indicates bilateral pneumonia, right greater than left, otherwise results as above. Departure - Departure Time of Disposition: 19:25 Disposition: DC/Tfer to Acute Hospital 02 Condition: Fair Clinical Impression: PVCs (premature ventricular contractions), Need for comfort care, Hypoalbuminemia, Elevated lactic acid level Pneumonia Qualifiers: Pneumonia type: aspiration pneumonia Aspiration pneumonia type: unspecified Laterality: right Lung location: lower lobe of lung Qualified Code(s): J69.0 - Pneumonitis due to inhalation of food and vomit CHF (congestive heart failure) Qualifiers: Heart failure type: unspecified Heart failure chronicity: chronic Qualified Code(s): I50.9 - Heart failure, unspecified COPD (chronic obstructive pulmonary disease) Qualifiers: Chronic bronchitis type: simple Atrial fibrillation Qualifiers: Atrial fibrillation type: longstanding persistent Qualified Code(s): I48.11 - Longstanding persistent atrial fibrillation Anemia Qualifiers: Anemia type: unspecified type Qualified Code(s): D64.9 - Anemia, unspecified Hypertension Qualifiers: Hypertension type: essential hypertension Qualified Code(s): I10 - Essential (primary) hypertension Osteoarthritis Qualifiers: Osteoarthritis location: multiple joints Osteoarthritis type: primary Qualified Code(s): M15.0 - Primary generalized (osteo)arthritis - Discharge Information *PRESCRIPTION DRUG MONITORING PROGRAM REVIEWED*: Not Applicable *COPY OF PRESCRIPTION DRUG MONITORING REPORT IN PATIENT JOE: Not Applicable Referrals: PCP,None [Primary Care Provider] - Forms: Interfacility Transfer EMTALA, ED Department Discharge Care Plan Goals: See plan Sepsis Event Note (ED) - Focused Exam Vital Signs: Vital Signs Temp Pulse Pulse Resp BP BP Pulse Ox 08/25/20 18:51 37.1 C 131 H 23 H 118/79 08/25/20 18:05 37.1 C 117 H 23 H 100/58 L 93 L 08/25/20 17:44 122 H 30 H 95 08/25/20 17:31 108 H 30 H 98/74 99 08/25/20 17:06 37.6 C 113 H 32 H 116/65 95 08/25/20 16:37 37.6 C 105 H 24 H 101/52 L 81 L - Problem List & Annotations (1) Pneumonia SNOMED Code(s): 727110806 Code(s): J18.9 - PNEUMONIA, UNSPECIFIED ORGANISM Status: Acute Priority: High Current Visit: Yes Onset Date: 07/19/19 Annotation/Comment:: Initial telephone consultation at 5:[address] Long, hospitalist at the [facility], who did subsequently accept the patient at 5:55 PM for direct admission with initial COVID-19 test in their ER, with no further treatment recommendations given. Likely aspiration pneumonia with patient noncompliant with his thickened liquids. Bilateral pneumonia by chest x-ray report with additional CHF component as below. IV Rocephin and IV Flagyl were completed prior to patient's transfer. Blood cultures x2 and sputum specimen were collected as above. Accepting physician plans to repeat COVID-19 rapid test in their ER prior to direct admission. Note pending COVID-19 test earlier today with negative COVID-19 test earlier in the week per in [place]. The patient also did receive his second and final COVID-19 immunization earlier today. Vital signs and clinical exam were stable at time of patient's transfer. Ambulance transfer with fork truck operator accompaniment with continuation of IV fluids secondary to elevated lactic acid level as below. Qualifiers: Pneumonia type: aspiration pneumonia Aspiration pneumonia type: unspecified Laterality: right Lung location: lower lobe of lung Qualified Code(s): J69.0 - Pneumonitis due to inhalation of food and vomit (2) CHF (congestive heart failure) SNOMED Code(s): 96994323 Code(s): I50.9 - HEART FAILURE, UNSPECIFIED Status: Chronic Priority: High Current Visit: Yes Annotation/Comment:: Elevated BNP with evidence of CHF both by clinical exam and today's chest x-ray. No chest pain or anginal type symptoms. Lasix 60 mg IV given in the emergency room with continued IV diuresis by accepting providers. Qualifiers: Heart failure type: unspecified Heart failure chronicity: chronic Qualified Code(s): I50.9 - Heart failure, unspecified (3) Elevated lactic acid level SNOMED Code(s): 0980141 Code(s): R79.89 - OTHER SPECIFIED ABNORMAL FINDINGS OF BLOOD CHEMISTRY Status: Acute Priority: High Current Visit: Yes Onset Date: 07/10/19 Annotation/Comment:: Recommend repeat lactic acid level at time of arrival of the patient to the [facility]. No clinical evidence of sepsis despite his tachycardia with otherwise no leukocytosis and mild fever noted in the emergency room. Sepsis protocol initiated, including blood cultures x2 as above, IV antibiotics as above, and initiation of IV fluids/lactated Ringer's in route with caution secondary to his current CHF. (4) Coronary artery disease SNOMED Code(s): 21679096 Code(s): I25.10 - ATHSCL HEART DISEASE OF [place] CORONARY ARTERY W/O ANG PCTRS Status: Chronic Priority: High Current Visit: Yes Annotation/Comment:: As above. Negative cardiac enzymes with exception of BNP elevation. Qualifiers: Coronary Disease-Associated Artery/Lesion type: bypass graft [place] vs. transplanted heart: [place] heart Associated angina: without angina Qualified Code(s): I25.810 - Atherosclerosis of coronary artery bypass graft(s) without angina pectoris (5) COPD (chronic obstructive pulmonary disease) SNOMED Code(s): 41293981 Code(s): J44.9 - CHRONIC OBSTRUCTIVE PULMONARY DISEASE, UNSPECIFIED Status: Chronic Priority: High Current Visit: Yes Annotation/Comment:: Otherwise stable by history with aspiration pneumonia as above. Note previous nocturnal O2 requirement. Qualifiers: Chronic bronchitis type: simple (6) Atrial fibrillation SNOMED Code(s): 74731469 Code(s): I48.91 - UNSPECIFIED ATRIAL FIBRILLATION Status: Acute Priority: Medium Current Visit: Yes Annotation/Comment:: Known chronic atrial fibrillation with mild tachycardia today. No chest pain or anginal type symptoms with negative cardiac enzymes. Patient has refused anticoagulation secondary to his current comfort care and risk factors. Qualifiers: Atrial fibrillation type: longstanding persistent Qualified Code(s): I48.11 - Longstanding persistent atrial fibrillation (7) Anemia SNOMED Code(s): 515517259 Code(s): D64.9 - ANEMIA, UNSPECIFIED Status: Acute Priority: Medium Current Visit: Yes Onset Date: 01/18/20 Annotation/Comment:: No evidence of acute GI bleed with stable hemoglobin per our medical records. High-dose IV Pepcid was given as GI prophylaxis. Further work-up depending on his clinical course. 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 Consider high-protein Glucerna supplements as snacks. (9) PVCs (premature ventricular contractions) SNOMED Code(s): 22225971 Code(s): I49.3 - VENTRICULAR PREMATURE DEPOLARIZATION Status: Chronic Priority: High Current Visit: Yes Onset Date: 07/10/19 Annotation/Comment:: Observe for now. (10) Hypertension SNOMED Code(s): 30940660 Code(s): I10 - ESSENTIAL (PRIMARY) HYPERTENSION Status: Chronic Priority: Medium Current Visit: Yes Annotation/Comment:: Stable during his emergency room care. Continue to observe closely by accepting providers. Qualifiers: Hypertension type: essential hypertension Qualified Code(s): I10 - Essential (primary) hypertension (11) Need for comfort care SNOMED Code(s): 083676832, 624365244 Code(s): JDJ5811 - Status: Chronic Priority: High Current Visit: Yes Annotation/Comment:: Long-term prognosis is extremely poor secondary to multiple health problems as below. NO CODE STATUS confirmed from [facility] records. (12) Dysphagia SNOMED Code(s): 72482826, [id number] Code(s): R13.10 - DYSPHAGIA, UNSPECIFIED Status: Chronic Priority: High Current Visit: Yes Annotation/Comment:: As above. Compliance with thickened liquids strongly encouraged secondary to his recurrent aspiration pneumonia. Qualifiers: Dysphagia type: unspecified Qualified Code(s): R13.10 - Dysphagia, unspecified - Problem List Review Problem List Initiated/Reviewed/Updated: Yes - My Orders Last 24 Hours: My Active Orders 08/25/20 Breakfast Nothing Per Oral Diet [DIET] 08/25/20 16:37 Sodium Chloride 0.9% [Saline Flush] 10 ml FLUSH ASDIRECTED PRN Resuscitation Status Routine 08/25/20 16:38 Communication Order [RC] ROUTINE Oxygen Therapy, ED [RC] CONTINUOUS Pulse Oximetry [RC] CONTINUOUS Up With Assistance [RC] ASDIRECTED Chest 1V Frontal [CR] Stat Blood Culture x2 Reflex Set [OM.PC] Stat Obtain Past Medical Record [OM.PC] Stat Peripheral IV Insertion Adult [OM.PC] Stat 08/25/20 16:39 Peripheral IV Care [RC] . DIRECTED 08/25/20 16:50 CULTURE BLOOD [BC] Stat 08/25/20 16:55 CULTURE BLOOD [BC] Stat 08/25/20 17:45 CULTURE SPUTUM + SMEAR [RM] Urgent 08/25/20 19:15 Lactated Ringers [Ringers, Lactated] 1,000 ml IV ASDIRECTED - Assessment/Plan Last 24 Hours: My Active Orders 08/25/20 Breakfast Nothing Per Oral Diet [DIET] 08/25/20 16:37 Sodium Chloride 0.9% [Saline Flush] 10 ml FLUSH ASDIRECTED PRN Resuscitation Status Routine 08/25/20 16:38 Communication Order [RC] ROUTINE Oxygen Therapy, ED [RC] CONTINUOUS Pulse Oximetry [RC] CONTINUOUS Up With Assistance [RC] ASDIRECTED Chest 1V Frontal [CR] Stat Blood Culture x2 Reflex Set [OM.PC] Stat Obtain Past Medical Record [OM.PC] Stat Peripheral IV Insertion Adult [OM.PC] Stat 08/25/20 16:39 Peripheral IV Care [RC] . DIRECTED 08/25/20 16:50 CULTURE BLOOD [BC] Stat 08/25/20 16:55 CULTURE BLOOD [BC] Stat 08/25/20 17:45 CULTURE SPUTUM + SMEAR [RM] Urgent 08/25/20 19:15 Lactated Ringers [Ringers, Lactated] 1,000 ml IV ASDIRECTED Assessment:: As above Plan: As above. Extensive precautions were given to the patient, who is in agreement with the treatment plan. Ambulance transfer to the [facility] as above.
[2020-08-25 17:17] LABS: PTT,PARTIAL THROMBOPLSTIN TIME 25.5 SEC (24.5-32.8)
[2020-08-25 17:28] LABS: CHLORIDE,CL 105 mmol/L (98-107); SODIUM,NA 141 mmol/L (136-145)
[2020-08-25] MEDS: cefTRIAXone 1 GM in Sodium Chloride 0.9% 100 ML IV ONE (17:28)
[2020-08-25] MEDS: metroNIDAZOLE/Normal Saline 500 MG in Premix Bag 1 BAG IV ONE (17:53)
[2020-08-25] MEDS: Furosemide 40 MG/4 ML VIAL IVPUSH ONE (18:00)
[2020-08-25] MEDS: Sodium Chloride 0.9% 10 ML Syringe FLUSH PRN (18:01)
[2020-08-25] MEDS ORDERED: Lactated Ringers 1,000 ML IV SCH (19:15)
== END 2020-08-25 19:10 ==
LOC: LL.ED 16:33
DX: J69.0 Pneumonitis due to inhalation of food and vomit (principal); I11.0 Hypertensive heart disease with heart failure; I50.9 Heart failure, unspecified; J44.9 Chronic obstructive pulmonary disease, unspecified; I48.11 Longstanding persistent atrial fibrillation; D64.9 Anemia, unspecified; M89.49 Other hypertrophic osteoarthropathy, multiple sites; I49.3 Ventricular premature depolarization; E88.09 Other disorders of plasma-protein metabolism, not elsewhere classified; R74.02 Elevation of levels of lactic acid dehydrogenase [LDH]; I25.2 Old myocardial infarction; E11.9 Type 2 diabetes mellitus without complications; E66.9 Obesity, unspecified; Z68.27 Body mass index [BMI] 27.0-27.9, adult; Z79.82 Long term (current) use of aspirin; Z79.899 Other long term (current) drug therapy
CPT/HCPCS: 36415; 71045; 80053; 82550; 82553; 83605; 83735; 83880; 84443; 84484; 85025; 85610; 85730; 87040; 87070; 87205; 96365; 96367; 96375; 99284; J0696; J1940; J3490

== ENCOUNTER 2022-01-16 07:32 | Emergency (ER) | payer MEDICARE, BC ==
[2022-01-16] MEDS: Phenylephrine 0.5% Nasal Spray 15 ML Bot NASBOTH ONE (08:09)
[2022-01-16] MEDS: Lidocaine 2% with EPINEPHrine 1:100,000 20 ML MDV INJECT ONE (08:12)
== END 2022-01-16 09:00 | disposition home or self-care (01) ==
LOC: LL.ED 07:32
DX: R04.0 Epistaxis (principal); I48.91 Unspecified atrial fibrillation; I25.10 Atherosclerotic heart disease of native coronary artery without angina pectoris; I11.0 Hypertensive heart disease with heart failure; I50.9 Heart failure, unspecified; J44.9 Chronic obstructive pulmonary disease, unspecified; E11.9 Type 2 diabetes mellitus without complications; E78.00 Pure hypercholesterolemia, unspecified; E66.9 Obesity, unspecified; M19.90 Unspecified osteoarthritis, unspecified site; Z68.30 Body mass index [BMI] 30.0-30.9, adult; Z86.73 Personal history of transient ischemic attack (TIA), and cerebral infarction without residual deficits; Z79.82 Long term (current) use of aspirin; Z79.899 Other long term (current) drug therapy; Z95.1 Presence of aortocoronary bypass graft
CPT/HCPCS: 30901; 99283; 99283-25

== ENCOUNTER 2022-03-06 09:12 | Emergency (ER) | payer MEDICARE, BC ==
[2022-03-06] MEDS ORDERED: Albuterol/Ipratropium 3.0-0.5 MG/3 ML Neb Soln NEB ONE ×2 (09:13→09:14)
[2022-03-06] MEDS ORDERED: Sodium Chloride 0.9% 10 ML Syringe FLUSH PRN (09:17)
[2022-03-06] MEDS ORDERED: Clindamycin Phosphate in D5W 900 MG in Premix Bag 1 BAG IV ONE ×2 (09:58)
[2022-03-06] MEDS ORDERED: methylPREDNISolone Sodium Succinate 125 MG/2 ML SDV IVPUSH ONE (09:59)
[2022-03-06 10:20] LABS: ANION GAP 6.6 meq/L (7-15); CHLORIDE,CL 103 mmol/L (98-107); SODIUM,NA 140 mmol/L (136-145)
[2022-03-06 10:25] LABS: ESTIMATED GFR 71 mL/min (>=60)
[2022-03-06 10:47] LABS: BASE EXCESS VENOUS 0 mmol/L ((-2)-3); BICARBONATE,VENOUS 28 mmol/L (23-28); O2 DELIVERY DEVICE NASAL CANNULA; O2 SATURATION VENOUS 23 %; PCO2 VENOUS 60 mmHG (41-51); PH,VENOUS 7.28 (7.31-7.41); PO2 VENOUS 19 mmHG
[2022-03-06 11:38] LABS: CORONAVIRUS COVID-19 NAA NEGATIVE (NEGATIVE); RESPIRATORY SYNCYTIAL VIR NAA NEGATIVE (NEGATIVE)
== END 2022-03-06 13:10 ==
LOC: LL.ED 09:12
DX: J44.1 Chronic obstructive pulmonary disease with (acute) exacerbation (principal); J69.0 Pneumonitis due to inhalation of food and vomit; I48.91 Unspecified atrial fibrillation; I25.10 Atherosclerotic heart disease of native coronary artery without angina pectoris; E78.00 Pure hypercholesterolemia, unspecified; I11.0 Hypertensive heart disease with heart failure; I50.40 Unspecified combined systolic (congestive) and diastolic (congestive) heart failure; E11.9 Type 2 diabetes mellitus without complications; E66.9 Obesity, unspecified; Z68.30 Body mass index [BMI] 30.0-30.9, adult; Z79.82 Long term (current) use of aspirin; Z20.822 Contact with and (suspected) exposure to COVID-19
CPT/HCPCS: 0241U; 36415; 71045; 80053; 82803; 83605; 83735; 83880; 84484; 85025; 87040; 94640; 96365; 96375; 99284; 99285-25; J2930; J3490; J7620-GY

== ENCOUNTER 2022-08-09 10:41 | Emergency (ER) | payer OTHER, MEDICARE, BC ==
[2022-08-09] MEDS: Iopamidol 755 Mg/ML 100 ML Bottle ONE (12:10)
[2022-08-09] MEDS: Iopamidol 755 Mg/ML 100 ML Bottle IVPUSH ONE (12:16)
[2022-08-09 13:33] LABS: CORONAVIRUS COVID-19 NAA NEGATIVE (NEGATIVE); RESPIRATORY SYNCYTIAL VIR NAA NEGATIVE (NEGATIVE)
[2022-08-09] MEDS: cefTRIAXone 1 GM in Sodium Chloride 0.9% 100 ML IV ONE (14:59)
[2022-08-09] MEDS: Azithromycin 500 MG in Sodium Chloride 0.9% 250 ML IV ONE (14:59)
[2022-08-09] MEDS: Apixaban 5 MG Tab PO ONE (15:12)
== END 2022-08-09 16:30 ==
LOC: LL.ED 10:41
DX: J18.9 Pneumonia, unspecified organism (principal); I26.94 Multiple subsegmental thrombotic pulmonary emboli without acute cor pulmonale; I48.11 Longstanding persistent atrial fibrillation; I25.10 Atherosclerotic heart disease of native coronary artery without angina pectoris; I11.0 Hypertensive heart disease with heart failure; I50.9 Heart failure, unspecified; E78.00 Pure hypercholesterolemia, unspecified; J44.9 Chronic obstructive pulmonary disease, unspecified; M19.90 Unspecified osteoarthritis, unspecified site; E11.9 Type 2 diabetes mellitus without complications; E66.9 Obesity, unspecified; Z79.82 Long term (current) use of aspirin; Z79.01 Long term (current) use of anticoagulants; Z79.899 Other long term (current) drug therapy; Z20.822 Contact with and (suspected) exposure to COVID-19
CPT/HCPCS: 0241U; 71275; 83605; 83880; 84484; 93005; 93010; 96365; 96367; 99285; 99285-25; A9270-GY; J0456; J0696; J7050; Q9967

== ENCOUNTER 2022-11-05 11:42 | Emergency (ER) | payer OTHER, MEDICARE, BC ==
[2022-11-05 12:58] LABS: ANION GAP 5.3 meq/L (7-15); CHLORIDE,CL 106 mmol/L (98-107); SODIUM,NA 142 mmol/L (136-145)
[2022-11-05 13:00] LABS: ESTIMATED GFR 82 mL/min (>=60)
== END 2022-11-05 15:29 | disposition home or self-care (01) ==
LOC: LL.ED 11:42
DX: J18.9 Pneumonia, unspecified organism (principal); I48.91 Unspecified atrial fibrillation; J44.9 Chronic obstructive pulmonary disease, unspecified; I11.0 Hypertensive heart disease with heart failure; I50.9 Heart failure, unspecified; I25.10 Atherosclerotic heart disease of native coronary artery without angina pectoris; E78.00 Pure hypercholesterolemia, unspecified; N40.0 Benign prostatic hyperplasia without lower urinary tract symptoms; E11.9 Type 2 diabetes mellitus without complications; E66.9 Obesity, unspecified; Z68.30 Body mass index [BMI] 30.0-30.9, adult; Z79.82 Long term (current) use of aspirin; Z79.01 Long term (current) use of anticoagulants; Z79.899 Other long term (current) drug therapy
CPT/HCPCS: 36415; 71046; 80053; 83880; 85025; 86140; 99283; 99284

== ENCOUNTER 2023-02-01 13:01 | Emergency (ER) | payer OTHER, MEDICARE, BC ==
[2023-02-01] MEDS ORDERED: Furosemide 40 MG/4 ML VIAL ONE (13:05)
[2023-02-01 14:26] LABS: O2 DELIVERY DEVICE NON REBR MASK
[2023-02-01 14:27] LABS: BASOPHILS ABSOLUTE AUTO 0.01 K/uL (0.00-0.20); BASOPHILS PERCENT AUTO 0.2 % (0.0-2.0); EOSINOPHILS ABSOLUTE AUTO 0.06 K/uL (0.00-0.50); EOSINOPHILS PERCENT AUTO 1.1 % (0.0-5.0); HEMATOCRIT 40.3 % (39.0-49.0); HEMOGLOBIN 12.6 g/dL (13.1-16.8); LYMPHOCYTES ABSOLUTE AUTO 0.51 K/uL (0.50-3.50); LYMPHOCYTES PERCENT AUTO 9.2 % (10.0-50.0); MEAN CORPUSCULAR HEMOGLOBIN 29.3 pg (28.2-33.3); MEAN CORPUSCULAR HGB CONC 31.3 g/dL (31.7-36.0); MEAN CORPUSCULAR VOLUME 93.7 fL (84.0-98.0); MONOCYTES ABSOLUTE AUTO 0.31 K/uL (0.00-1.00); MONOCYTES PERCENT AUTO 5.6 % (2.0-14.0); NEUTROPHILS ABSOLUTE AUTO 4.68 K/uL (1.40-7.00); NEUTROPHILS PERCENT AUTO 83.9 % (45.0-80.0); PLATELET COUNT,PLT 167 K/uL (150-350); RED CELL DISTRIBUTION WIDTH 14.6 % (11.2-14.1); WHITE BLOOD CELL COUNT,WBC 5.6 K/uL (4.0-10.2)
[2023-02-01 14:30] LABS: PCO2 VENOUS 49 mmHG (41-51); PH,VENOUS 7.35 (7.31-7.41); PO2 VENOUS 68 mmHG
[2023-02-01 14:31] LABS: BASE EXCESS VENOUS 1 mmol/L ((-2)-3); BICARBONATE,VENOUS 27 mmol/L (23-28); O2 SATURATION VENOUS 92 %
[2023-02-01 14:38] LABS: INR 1.2; PROTHROMBIN TIME 11.7 SEC (9.0-11.1)
[2023-02-01 14:48] LABS: LACTIC ACID 2.1 mmol/L (0.4-2.0)
[2023-02-01 14:50] LABS: ALANINE AMINOTRANSFERASE,ALT 9 U/L (12-78); ALBUMIN 2.7 g/dL (3.4-5.0); ALKALINE PHOSPHATASE 86 IU/L (46-116); ASPARTATE AMNIOTRANSFERASE,AST 17 U/L (15-37); BILIRUBIN TOTAL 0.6 mg/dL (0.2-1.0); BLOOD UREA NITROGEN,BUN 26 mg/dL (7-18); CALCIUM 8.4 mg/dL (8.5-10.1); CARBON DIOXIDE,CO2 27.5 mmol/L (21.0-32.0); CHLORIDE,CL 109 mmol/L (98-107); CREATININE 1.03 mg/dL (0.51-1.17); GLUCOSE RANDOM 187 mg/dL (70-99); POTASSIUM,K 4.2 mmol/L (3.5-5.1); PRO B-TYPE NATRIUR PEPT,BNPPRO 3436 pg/mL (0-125); PROTEIN TOTAL,TP 6.4 g/dL (6.4-8.2); SODIUM,NA 144 mmol/L (136-145)
[2023-02-01 15:00] LABS: ANION GAP 11.7 meq/L (7-15); ESTIMATED GFR 70 mL/min (>=60)
[2023-02-01] MEDS ORDERED: Piperacillin/Tazobactam 3.375 GM in Sodium Chloride 0.9% 100 ML IV SCH (15:45)
[2023-02-01 15:57] LABS: CORONAVIRUS COVID-19 NAA NEGATIVE (NEGATIVE); INFLUENZA A NAA NEGATIVE (NEGATIVE); INFLUENZA B NAA NEGATIVE (NEGATIVE); RESPIRATORY SYNCYTIAL VIR NAA NEGATIVE (NEGATIVE)
== END 2023-02-01 18:37 ==
LOC: LL.ED 13:01
DX: J18.9 Pneumonia, unspecified organism (principal); I11.0 Hypertensive heart disease with heart failure; I50.40 Unspecified combined systolic (congestive) and diastolic (congestive) heart failure; I48.91 Unspecified atrial fibrillation; J45.909 Unspecified asthma, uncomplicated; I25.10 Atherosclerotic heart disease of native coronary artery without angina pectoris; E78.00 Pure hypercholesterolemia, unspecified; J44.9 Chronic obstructive pulmonary disease, unspecified; E11.9 Type 2 diabetes mellitus without complications; E66.9 Obesity, unspecified; Z68.30 Body mass index [BMI] 30.0-30.9, adult; Z95.1 Presence of aortocoronary bypass graft; Z86.73 Personal history of transient ischemic attack (TIA), and cerebral infarction without residual deficits; Z79.01 Long term (current) use of anticoagulants; Z20.822 Contact with and (suspected) exposure to COVID-19
CPT/HCPCS: 0241U; 36415; 71045; 80053; 82803; 83605; 83880; 84484; 85025; 85610; 87040; 87077; 87186; 93005; 96365; 99285-25; J2543; J3490